=== PATIENT | female | born 1940 | race Hispanic/Latino ===

== ENCOUNTER 2018-01-24 14:04 | Inpatient (IN) | payer MEDICARE, MEDICAID ==
[2018-01-24] MEDS ORDERED: Haloperidol Lactate 5 MG/ML VIAL ONE ×2 (14:23→15:30)
[2018-01-24 14:44] LABS: #Eosinphils 0.2 thou/uL (0.0-0.7); #Monocytes 0.6 thou/uL (0.11-0.59); %Basophils 0.1 % (0.0-1.0); %Lymphocytes 25.8 % (21.0-51.0); %Neutrophils 64.1 % (42.0-75.0); Hemoglobin 11.9 g/dL (12.0-16.0); Mean Corpuscular HGB CONC 32.9 g/dL (32.0-36.0); Mean Corpuscular Hemoglobin 27.7 pg (27.0-31.0); Mean Corpuscular Volume 84.1 fl (81.0-99.0); Mean Platelet Volume 8.3 fL (7.4-10.4); Platelet Count 223 thou/uL (130-400); RBC Distribution Width 12.9 % (11.5-14.5); Red Blood Cell (RBC) Count 4.29 mill/uL (4.20-5.40); White Blood Cell (WBC) Count 7.7 thou/uL (4.8-10.8)
[2018-01-24 14:54] LABS: Base Excess-Venous -0.4 mmol/L (0 (+/- 2.5)); Bicarbonate (HCO3v) 23.5 mmol/L (1.0-85.0); CO2 Tension (PvCO2) 35.2 mmHg (41.0-51.0); Calcium, Ionized 1.08 mmol/L (1.12-1.32); Hemoglobin - Calc 12.3 g/dL (12.0-18.0); Potassium 3.2 mmol/L (3.4-4.7); T. Carbon Dioxide 24.6 mmol/L (1.0-85.0); pH (Venous) 7.433 (7.35-7.45); vO2 Saturation-calc 95.1 % (94-98)
[2018-01-24 15:05] LABS: ALT (SGPT) 15 U/L (8-55); AST (SGOT) 16 U/L (5-34); Albumin 3.2 g/dL (3.4-4.8); Alkaline Phosphatase 83 U/L (40-150); Anion Gap 13 mmol/L (10-20); BUN (Urea Nitrogen) 21 mg/dL (9.8-20.1); Bilirubin, Total 0.3 mg/dL (0.2-1.2); Calc. Creatinine Clearance 0 mL/min (70-130); Calcium 9.2 mg/dL (7.8-10.44); Carbon Dioxide 22 mmol/L (23-31); Chloride 100 mmol/L (98-107); Estimated GFR-MDRD 54; Globulin 3.3 g/dL (2.4-3.5); Glucose 364 mg/dL (83-110); Potassium 3.3 mmol/L (3.5-5.1); Protein, Total 6.5 g/dL (6.0-8.3); Sodium 132 mmol/L (136-145)
[2018-01-24] MEDS ORDERED: diphenhydrAMINE 50 MG/ML VIAL ONE (15:40)
[2018-01-24] MEDS ORDERED: Lorazepam 2 MG/ML VIAL ONE (16:05)
--- NOTE | 2018-01-24 17:16 | CT ---
CT BRAIN WITHOUT CONTRAST 01/24/18 HISTORY: Altered mental status. FINDINGS: Comparison is made with exam of 03/31/17. Changes of cortical atrophy and chronic small vessel ischemic disease are again seen. The ventricular size is stable and the basilar cisterns patent. No evidence of acute infarct, hemorrhage, midline sh ift or abnormal extra-axial fluid collections are noted. The bony calvarium is intact. The visualized paranasal sinuses and mastoid air cells are well aerated. IMPRESSION: No CT evidence of acute intracranial process. POS: [facility]
[2018-01-24 17:53] LABS: Troponin I 0.023 ng/mL (< 0.028)
[2018-01-24] MEDS ORDERED: Ondansetron HCl/PF 4 MG/2 ML Vial IVP PRN ×2 (17:57→18:50)
[2018-01-24] MEDS ORDERED: Acetaminophen 325 MG TAB PO PRN (17:57)
[2018-01-24] MEDS ORDERED: HYDROcodone/Acetaminophen 5/325 mg Tablet PO PRN ×2 (17:57)
[2018-01-24] MEDS ORDERED: Ondansetron ODT 4 MG TAB SL PRN (17:57)
[2018-01-24 18:12] VITALS: BMI 43.6
[2018-01-24] MEDS ORDERED: Senokot 8.6 MG TAB PO PRN (18:50)
[2018-01-24] MEDS ORDERED: Calcium Carbonate 500 MG ChewTAB PO PRN (18:50)
[2018-01-24] MEDS ORDERED: Dextrose 5% in Water 1,000 ML IV PRN (18:50)
[2018-01-24] MEDS ORDERED: Milk Of Magnesia 30 ML UDCUP PO PRN (18:50)
[2018-01-24] MEDS ORDERED: Ondansetron ODT 4 MG TAB PO PRN (18:50)
[2018-01-24] MEDS ORDERED: Dextrose 50% Abboject 50 ML SYRINGE SLOW IVP PRN (18:50)
[2018-01-24] MEDS ORDERED: Nitroglycerin 0.4 MG TAB (25 Tab Bottle) PO PRN (18:50)
[2018-01-24] MEDS ORDERED: Acetaminophen 650 MG Suppository PR PRN (18:50)
[2018-01-24] MEDS ORDERED: Aspirin 300 MG Suppository PR SCH (19:00)
[2018-01-24] MEDS ORDERED: Vancomycin HCl 1 GM in Premix Bag 1 BAG IVPB SCH (19:00)
[2018-01-24] MEDS ORDERED: Labetalol HCl 100 MG/20 ML VIAL SLOW IVP PRN (19:02)
[2018-01-24] MEDS ORDERED: Nitroglycerin 2% Ointment 1 INCH/1 GM Packet TOP PRN (19:17)
[2018-01-24] MEDS: Atorvastatin Calcium 10 MG TAB PO SCH (19:24)
[2018-01-24 19:28] LABS: Anion Gap 11 mmol/L (10-20); BUN (Urea Nitrogen) 16 mg/dL (9.8-20.1); Calc. Creatinine Clearance 103 mL/min (70-130); Calcium 9.3 mg/dL (7.8-10.44); Carbon Dioxide 23 mmol/L (23-31); Chloride 101 mmol/L (98-107); Estimated GFR-MDRD 69; Glucose 356 mg/dL (83-110); Lipase 9 U/L (8-78); Magnesium 1.7 mg/dL (1.6-2.6); Phosphorus 2.8 mg/dL (2.3-4.7); Potassium 3.4 mmol/L (3.5-5.1); Sodium 132 mmol/L (136-145)
[2018-01-24 19:39] LABS: Troponin I 0.039 ng/mL (< 0.028)
[2018-01-24 19:59] LABS: Folate (Folic Acid) 9.1 ng/mL (7.0-31.4)
--- NOTE | 2018-01-24 20:02 | HP ---
DATE OF ADMISSION: 01/24/2018 PRIMARY CARE PHYSICIAN: Milan Vargas M.D. CHIEF COMPLAINT: Altered mentation. HISTORY OF PRESENT ILLNESS: The patient is a 77-year-old female with diabetes mellitus type 2 and medication noncompliance, who presented to [facility] by EMS with altered mentation. At this time, the patient is confused and no information is available. History obtained from the ER and previous records. The patient currently lives alone at home. Her daughter lives in [place]. She has been very noncompliant with a blood sugar. She also has fallen several times. She was evaluated by Dr. Gonsalez last week and was recommended to be placed in a skilled nursing; however, the patient has been persistently declining. The patient was brought to the emergency room by EMS due to altered mentation and a fall. The caregiver called the EMS. The caregiver found the patient on the floor. Her blood sugars were "high" by EMS. There were no significant injuries reported. In the emergency room at [place], her initial vital signs showed temperature 97.7 , respirations 25, pulse rate of 112 with a blood pressure of 203/86 with O2 saturation 96% on room air. Her blood sugar at the emergency room was 695 with creatinine 1.18 and BUN 25. VBGs showed normal pH and bicarbonate. WBC count was 6.9 with a platelet count of 241, hemoglobin of 11.6. She received lorazepam, insulin and IV fluids due to altered mentation and agitation. Her EKG showed sinus tachycardia. PAST MEDICAL HISTORY: 1. Diabetes mellitus type 2 with medication noncompliance. 2. History of recurrent falls. 3. Hypertension. 4. Diabetic neuropathy. 5. Anxiety and depression. 6. Chronic insomnia. 7. Chronic obstructive pulmonary disease. 8. Dyslipidemia. 9. Hypothyroidism. 10. Anemia. 11. Morbid obesity. 12. Restless leg syndrome. 13. Chronic kidney disease, stage 2. PAST SURGICAL HISTORY: 1. Left total knee replacement. 2. Right elbow surgery. 3. Thyroid surgery in . 4. Right hand and wrist surgery in 1994. 5. Lumbar surgery in 2000. ALLERGIES: The patient is allergic to CODEINE. CURRENT HOME MEDICATIONS: Cannot be obtained from the patient due to current cognitive status. FAMILY HISTORY AND SOCIAL HISTORY: Cannot be obtained from the patient due to current cognitive status. CODE STATUS: FULL CODE. Surrogate decision maker is the daughter. REVIEW OF SYSTEMS: Cannot be obtained from the patient due to current cognitive status. PHYSICAL EXAMINATION: VITAL SIGNS: As discussed above. Her last blood pressure was 119/76. GENERAL: A 77-year-old female with altered mentation. She is not following verbal commands. She is spontaneously moving all 4 extremities. HEENT: Head is atraumatic, normocephalic. Sclerae are anicteric. Dry mucous membranes. Pupils are 2-3 mm with slow response to light. NECK: Supple, no JVD appreciated. No carotid bruit. LUNGS: Clear to auscultation bilaterally with diminished air entry at bases. No wheezing, rales or rhonchi. HEART: S1, S2 present. Regular rate and rhythm, tachycardic, no rubs or gallops appreciated. ABDOMEN: Soft. Bowel sounds present. No rebound or guarding. No tenderness over the costovertebral area. EXTREMITIES: 1+ edema in bilateral lower extremities with several superficial abrasions/lacerations. NEUROLOGIC: Cannot be assessed due to above reason. The patient is not following commands. Her tone appears to be normal. PSYCHIATRIC: As discussed above. LYMPH NODES: No palpable lymph nodes in the neck. PERIPHERAL VASCULAR: Radial pulses palpable bilaterally. MUSCULOSKELETAL: No joint swelling or tenderness appreciated. SKIN: As discussed above. LABORATORY AND X-RAY FINDINGS: As discussed above. Sodium was 130 with glucose of 695. Potassium was 3.3. Troponins were normal. EKG by my review showed sinus tachycardia. CT scan of the brain was negative. Chest x-ray by my review was negative for acute findings. IMPRESSION: 1. Toxic metabolic encephalopathy of unclear etiology. Hyperosmolar hyperglycemic state appears to be a possibility. Other possibilities include acute cerebrovascular accident. Urinalysis was negative. Patient probably has B /L LE Cellulitis from superficial lacerations 2. Diabetes mellitus type 2, uncontrolled with significant hyperglycemia. 3. Hypertension with hypertensive urgency on ER arrival. 4. Dyslipidemia. 5. Hypothyroidism. 6. Morbid obesity with a body mass index of 43.6. 7. Degenerative joint disease. 8. Diabetic neuropathy. 9. Medication noncompliance. 10. Recurrent falls. PLAN: The patient will be monitored in the stroke unit. Neurology will be consulted. We will start her on aspirin rectally. She will be n.p.o. We will continue IV fluids. Replace potassium. We will get Accu-Cheks every 4 hourly with moderate sliding scale. We will start her on empiric antibiotics. We will get blood cultures prior to the antibiotics. Plan of care was discussed with the daughter over the phone. She stated understanding. MER
[2018-01-24] MEDS: NS 0.9% w/ 20 MEQ KCL 1,000 ML/1,000 ML BAG IV SCH (20:24)
[2018-01-24] MEDS: Nystatin Powder 15 GM BOT TOP SCH (20:30)
[2018-01-24] MEDS ORDERED: MEROPENEM 1 GM/50 ML 1 GM in Premix Bag 1 BAG IVPB SCH (21:00)
[2018-01-24] MEDS ORDERED: Vancomycin HCl 500 MG in Sodium Chloride 0.9% 100 ML IVPB SCH (21:00)
[2018-01-24] MEDS: MEROPENEM 1 GM/50 ML 1 GM in Premix Bag 1 BAG IVPB SCH (21:05)
[2018-01-24] MEDS: Pantoprazole 40 MG VIAL IVP SCH (21:06)
[2018-01-24] MEDS ORDERED: Lorazepam 2 MG/ML VIAL SLOW IVP PRN (21:20)
[2018-01-24] MEDS: Insulin Regular 300 UNITS/3 ML VIAL SC PRN (21:33)
[2018-01-25] MEDS: NS 0.9% w/ 20 MEQ KCL 1,000 ML/1,000 ML BAG IV SCH ×3 (03:42→19:53)
[2018-01-25 05:06] LABS: #Eosinphils 0.3 thou/uL (0.0-0.7); #Lymphocytes 2.4 thou/uL (1.20-3.40); #Monocytes 0.7 thou/uL (0.11-0.59); #Neutrophils 4.3 thou/uL (1.40-6.50); %Basophils 0.1 % (0.0-1.0); %Eosinophils 4.4 % (0.0-10.0); %Lymphocytes 30.8 % (21.0-51.0); %Neutrophils 55.7 % (42.0-75.0); Hemoglobin 11.7 g/dL (12.0-16.0); Mean Corpuscular HGB CONC 32.4 g/dL (32.0-36.0); Mean Corpuscular Hemoglobin 27.4 pg (27.0-31.0); Mean Corpuscular Volume 84.6 fl (81.0-99.0); Mean Platelet Volume 8.7 fL (7.4-10.4); Platelet Count 249 thou/uL (130-400); Red Blood Cell (RBC) Count 4.27 mill/uL (4.20-5.40); White Blood Cell (WBC) Count 7.7 thou/uL (4.8-10.8)
[2018-01-25 05:33] LABS: Troponin I 0.094 ng/mL (< 0.028)
[2018-01-25 05:37] LABS: ALT (SGPT) 15 U/L (8-55); AST (SGOT) 18 U/L (5-34); Albumin 3.1 g/dL (3.4-4.8); Alkaline Phosphatase 80 U/L (40-150); Anion Gap 9 mmol/L (10-20); BUN (Urea Nitrogen) 13 mg/dL (9.8-20.1); Bilirubin, Total 0.4 mg/dL (0.2-1.2); Calc. Creatinine Clearance 111 mL/min (70-130); Calcium 9.1 mg/dL (7.8-10.44); Carbon Dioxide 27 mmol/L (23-31); Cardiac Risk 4.5 (Less than 4.5); Chloride 105 mmol/L (98-107); Cholesterol 158 mg/dl (< 200 Desired); Estimated GFR-MDRD 75; Glucose 206 mg/dL (83-110); HDL Cholesterol 35 mg/dL (>60 Neg Risk); LDL Cholesterol, Calculated 103 mg/dL; Magnesium 1.9 mg/dL (1.6-2.6); Phosphorus 2.4 mg/dL (2.3-4.7); Potassium 3.6 mmol/L (3.5-5.1); Protein, Total 6.1 g/dL (6.0-8.3); Sodium 137 mmol/L (136-145); Triglycerides 99 mg/dL (Less than 150)
[2018-01-25] MEDS: Enoxaparin Sodium 40 MG/0.4 ML SYRINGE SC SCH (08:19)
[2018-01-25] MEDS: MEROPENEM 1 GM/50 ML 1 GM in Premix Bag 1 BAG IVPB SCH ×2 (08:20→21:40)
[2018-01-25] MEDS: Nystatin Powder 15 GM BOT TOP SCH ×2 (08:23→20:03)
[2018-01-25] MEDS: Vancomycin HCl 500 MG in Sodium Chloride 0.9% 100 ML IVPB SCH ×2 (09:09→20:32)
[2018-01-25] MEDS: Insulin Regular 300 UNITS/3 ML VIAL SC PRN ×3 (12:33→21:19)
--- NOTE | 2018-01-25 15:03 | PDOC.PN ---
- Subjective Encounter Start Date: 01/25/18 Encounter Start Time: 11:30 Patient seen and examined. No new complaints. No overnight events. Mentation improving. No fever/chills. Passed swallow eval. No new focal deficits. - Objective Resuscitation Status: Resuscitation Status FULL:Full Resuscitation MAR Reviewed: Yes Vital Signs & Weight: Vital Signs (12 hours) Temp Pulse Pulse Pulse Resp BP BP 01/25/18 14:26 80 16 01/25/18 12:00 98.1 F 89 16 01/25/18 11:00 80 16 01/25/18 09:38 86 86 167/71 H 162/75 H 01/25/18 08:00 97.7 F 86 16 01/25/18 07:52 97.7 F 86 16 01/25/18 07:46 84 16 01/25/18 04:00 99.1 F 85 20 01/25/18 03:03 85 16 BP Pulse Ox 01/25/18 14:26 01/25/18 12:00 165/73 H 94 L 01/25/18 11:00 01/25/18 09:38 01/25/18 08:00 95 01/25/18 07:52 164/75 H 95 01/25/18 07:46 01/25/18 04:00 154/64 H 95 01/25/18 03:03 96 Weight Admit Weight 238 lb 9.6 oz Weight 238 lb 9.6 oz I&O: 01/24/18 01/25/18 01/26/18 06:59 06:59 06:59 Intake Total 0 Output Total 200 Balance -200 Result Diagrams: 01/26/18 03:30 01/26/18 03:30 Additional Labs: Accuchecks 01/25/18 01/25/18 01/25/18 11:12 05:03 02:42 POC Glucose 273 H 191 H 202 H 01/24/18 01/24/18 21:18 18:24 POC Glucose 368 H 347 H Radiology Reviewed by me: Yes (CXR - no infiltrates) EKG Reviewed by me: Yes (Tele SR) Phys Exam - Physical Examination Constitutional: NAD (Somnolent) Neck: no nodes, no JVD Respiratory: no wheezing, no rales, no rhonchi, clear to auscultation bilateral Cardiovascular: RRR, no rub no rubs/gallops Gastrointestinal: soft, non-tender, no distention, positive bowel sounds Musculoskeletal: no edema B/L LE erythema surrounding the lacerations Neuro/Psych - cannot assess reliably due to current mentation Dx/Plan - Plan delgadillo catheter, continue antibiotics, PT/OT, social sciences instructor, respiratory therapy, DVT proph w/lovenox, DVT proph w/SCDs IMPRESSION: 1. Toxic metabolic encephalopathy of unclear etiology. Probably Hyperosmolar hyperglycemic state with B/L LE Cellulitis. Acute CVA less likely. 2. Diabetes mellitus type 2, uncontrolled with significant hyperglycemia. 3. Hypertension with hypertensive urgency on ER arrival. 4. Dyslipidemia. 5. Hypothyroidism. 6. Morbid obesity with a body mass index of 43.6. 7. Degenerative joint disease. 8. Diabetic neuropathy. 9. Medication noncompliance. 10. Recurrent falls. PLAN: * Cont to monitor * Cont glucose check Q4h with sliding scale * Cont current meds as below * Cont current IV fluids * Cont Neuro checks * Await Neuro eval * AM labs * Cont Atbx * Await cultures * Attempted to call daughter - no answer * Resume selected home meds Review of Systems - Review of Systems Other: Cannot be reliably obtained due to current cognition - Medications/Allergies Allergies/Adverse Reactions: Allergies Allergy/AdvReac Type Severity Reaction Status Date / Time codeine AdvReac vomiting Verified 03/28/17 14:52 COD Allergy Emesis Uncoded 03/29/17 10:33 Medications: Current Medications Acetaminophen (Tylenol) 650 mg PO Q4H PRN PRN Reason: Headache/Fever or Pain Acetaminophen (Tylenol) 650 mg [place] Q4H PRN PRN Reason: Headache/Fever or Pain Albuterol/Ipratropium (Duoneb) 3 ml NEB [id number] [facility] Last Admin: 01/25/18 14:26 Dose: 3 ml Albuterol/Ipratropium (Duoneb) 3 ml NEB [id number] PRN PRN Reason: SOB &/or Wheezing Aspirin (Aspirin) 300 mg AZ Q24H [facility] Last Admin: 01/24/18 19:24 Dose: Not Given Atorvastatin Calcium (Lipitor) 10 mg PO HS [facility] Last Admin: 01/24/18 19:24 Dose: Not Given Calcium Carbonate (Tums) 1,000 mg PO Q4H PRN PRN Reason: Heartburn or Indigestion Dextrose/Water (Dextrose 50%) 25 gm SLOW IVP PRN PRN PRN Reason: Hypoglycemia Enoxaparin Sodium (Lovenox) 40 mg SC 09 [facility] Last Admin: 01/25/18 08:19 Dose: 40 mg Glucagon (Glucagon) 1 mg IM PRN PRN PRN Reason: Hypoglycemia Hydralazine HCl (Apresoline) 10 mg SLOW IVP Q4H PRN PRN Reason: BP > 180 Thiamine HCl 100 mg/ Sodium (Chloride) 51 mls @ 100 mls/hr IVPB 1999 [facility] Last Admin: 01/24/18 20:25 Dose: 51 mls Dextrose/Water (D5w) 1,000 mls @ 0 mls/hr IV .Q0M PRN; As Directed PRN Reason: Hypoglycemia Potassium Chloride/Sodium Chloride (Ns 0.9% W/ 20 Meq Kcl) 1,000 ml in 1,000 mls @ 150 mls/hr IV .Q6H40M [facility] Last Admin: 01/25/18 12:33 Dose: 1,000 mls Vancomycin HCl 500 mg/ Sodium (Chloride) 100 mls @ 100 mls/hr IVPB [facility] Last Admin: 01/25/18 09:09 Dose: 100 mls Meropenem 1 gm/ Device 50 mls @ 100 mls/hr IVPB Q12HR [facility] Last Admin: 01/25/18 08:20 Dose: 50 mls Insulin Human Regular (Humulin R) 0 units SC .MODERATE SLIDING SC PRN PRN Reason: Moderate Correctional Scale Last Admin: 01/25/18 12:33 Dose: 6 unit Insulin Human Regular (Humulin R) 0 units SC .BEDTIME SLIDING SC PRN PRN Reason: Bedtime Correctional Scale Labetalol HCl (Normodyne) 10 mg SLOW IVP Q4H PRN PRN Reason: Systolic BP > 180 Lorazepam (Ativan) 1 mg SLOW IVP Q4H PRN PRN Reason: Agitation Magnesium Hydroxide (Milk Of Magnesium) 30 ml PO DAILYPRN PRN PRN Reason: Constipation Miscellaneous Medication (Pharmacy To Dose) 1 each IVPB ONE PRN PRN Reason: Pharmacy to dose Stop: 02/23/18 18:47 Nitroglycerin (Nitrostat) 0.4 mg PO Q5MIN PRN PRN Reason: Chest Pain Nitroglycerin (Nitro-Bid 2% Ointment) 0.5 inch TOP Q8HR PRN PRN Reason: SBP Greater Than 180 Nystatin (Mycostatin Powder) 0 gm TOP BID [facility] Last Admin: 01/25/18 08:23 Dose: 1 each Ondansetron HCl (Zofran Odt) 4 mg PO Q6H PRN PRN Reason: Nausea/Vomiting Ondansetron HCl (Zofran) 4 mg IVP Q6H PRN PRN Reason: Nausea/Vomiting Pantoprazole Sodium (Protonix) 40 mg IVP 2100 [facility] Last Admin: 01/24/18 21:06 Dose: 40 mg Senna (Senokot) 2 tab PO HSPRN PRN PRN Reason: Constipation Sodium Chloride (Flush - Normal Saline) 10 ml IVF PRN PRN PRN Reason: Saline Flush
[2018-01-25] MEDS ORDERED: Mometasone/Formoterol 120 PUFF INHALER INH PRN (16:46)
[2018-01-25] MEDS: Acetaminophen 325 MG TAB PO PRN (17:11)
[2018-01-25] MEDS ORDERED: Aspirin 81 mg Enteric Coated Tablet PO SCH (17:30)
[2018-01-25] MEDS: Atorvastatin Calcium 10 MG TAB PO SCH (20:01)
[2018-01-25] MEDS: Pantoprazole 40 MG VIAL IVP SCH (20:01)
[2018-01-25] MEDS: Carvedilol 25 MG TAB PO SCH (20:01)
--- NOTE | 2018-01-25 23:17 | CON ---
DATE OF CONSULTATION: 01/25/2018 REFERRING PROVIDER: Dr. Bossman Jacome. REASON FOR CONSULTATION: Altered mental status. HISTORY OF PRESENT ILLNESS: Ms. Suarez is a pleasant 77-year-old female who has been con cerned for evaluation of altered mental status. History is obtained from patient and her medical kaitlin rt. Patient does not recall what brought her into the hospital. Apparently, patient was noted to [place] ve acute changes in mentation and a fall. She has multiple medical problems including high blood pre ssure, diabetes, cholesterol, anxiety, depression, COPD, hypothyroidism, and anemia. She was noncomp liant with her medications. Her caregiver had found her to be confused and called EMS. On arrival h ere, her blood sugar was noted to be extremely high. On arrival to the outside emergency room, her b lood pressure was noted to be 203/86 and blood glucose of 695, this prompted patient to be transferre d to [facility] for further evaluation. According to the nurse, her mentation has bee n improving over the past 24 hours. She currently denies any headache, chest pain, palpitation, naus ea, vomiting, abdominal pain. She does have history of paresthesia in both hands and feet. PAST MEDICAL HISTORY: Significant for hypertension, diabetes, diabetic neuropathy, anxiety, depressi on, chronic insomnia, COPD, dyslipidemia, hypothyroidism, anemia, morbid obesity, restless leg syndro me, and history of noncompliance with medication. PAST SURGICAL HISTORY: Significant for left total knee replacement, right elbow surgery, thyroid tomeka audi, right hand and wrist surgery, lumbar surgery. CURRENT MEDICATIONS: Please review MAR. ALLERGIES: Include CODEINE. FAMILY HISTORY: Noncontributory. SOCIAL HISTORY: She denies smoking, alcohol use, or illicit drug use. REVIEW OF SYSTEMS: As mentioned above in the HPI, was otherwise negative. PHYSICAL EXAMINATION: VITAL SIGNS: Blood pressure of 157/72, pulse of 92, temperature of 97.3, respirations of 16, O2 sats of 98% on room air. GENERAL: Well-developed, well-nourished female in no apparent distress. RESPIRATORY: Clear to auscultation bilaterally. CARDIOVASCULAR: Regular rate and rhythm. NEUROLOGIC: Mental status: Patient is awake, alert, oriented x3. Speech and language: Fluent spee ch. Cranial nerves: Pupils are 3 mm and reactive. Visual maher are intact. Extraocular muscles a re intact. No nystagmus noted. Face is symmetric. Tongue and uvula are midline. Motor exam showed normal tone and bulk with 5/5 strength in the both upper and lower extremities. Sensory: Sensation is intact and symmetric. Deep tendon reflexes 2+ reflexes in both upper and lower extremities. Bab inski: Plantar responses flexion bilaterally. Coordination intact to [id number] and finger tapping bilaterally. LABORATORY DATA: Reviewed, which included CBC, CMP, lipid profile, which is significant for glucose of 369, troponin of 0.094. Total cholesterol 158, LDL of 103, triglycerides of 99, HDL of 35, otherw ise unremarkable. IMAGING STUDIES: CT head without contrast was reviewed, which showed no acute intracranial abnormali ty. IMPRESSION: Altered mental status, likely toxic metabolic encephalopathy from hyperglycemia. Ms. Pinto is a pleasant 77-year-old female who presented with the confusion. She was noted to have blood glucose of 695 and above, likely the cause for confusion is hyperglycemia. I would recom mend continuing current medical management. Continue supportive care.
[2018-01-26] MEDS: Levothyroxine 150 MCG TAB PO SCH (05:34)
[2018-01-26] MEDS: NS 0.9% w/ 20 MEQ KCL 1,000 ML/1,000 ML BAG IV SCH ×3 (05:34→15:59)
[2018-01-26 07:54] LABS: #Eosinphils 0.5 thou/uL (0.0-0.7); #Monocytes 0.6 thou/uL (0.11-0.59); #Neutrophils 3.8 thou/uL (1.40-6.50); %Basophils 0.5 % (0.0-1.0); %Eosinophils 7.2 % (0.0-10.0); %Lymphocytes 29.3 % (21.0-51.0); %Monocytes 8.5 % (0.0-10.0); %Neutrophils 54.5 % (42.0-75.0); Hemoglobin 12.1 g/dL (12.0-16.0); Mean Corpuscular HGB CONC 31.9 g/dL (32.0-36.0); Mean Corpuscular Hemoglobin 28.1 pg (27.0-31.0); Mean Corpuscular Volume 88.3 fl (81.0-99.0); Mean Platelet Volume 9.7 fL (7.4-10.4); Platelet Count 272 thou/uL (130-400); RBC Distribution Width 13.5 % (11.5-14.5); Red Blood Cell (RBC) Count 4.28 mill/uL (4.20-5.40)
[2018-01-26 07:56] LABS: Vancomycin, Trough 5.5 ug/mL
[2018-01-26 07:57] LABS: ALT (SGPT) 17 U/L (8-55); AST (SGOT) 18 U/L (5-34); Albumin 3.1 g/dL (3.4-4.8); Alkaline Phosphatase 85 U/L (40-150); Anion Gap 10 mmol/L (10-20); BUN (Urea Nitrogen) 12 mg/dL (9.8-20.1); Bilirubin, Total 0.4 mg/dL (0.2-1.2); Calc. Creatinine Clearance 100 mL/min (70-130); Calcium 8.7 mg/dL (7.8-10.44); Carbon Dioxide 24 mmol/L (23-31); Chloride 104 mmol/L (98-107); Estimated GFR-MDRD 67; Globulin 3.3 g/dL (2.4-3.5); Glucose 240 mg/dL (83-110); Magnesium 1.7 mg/dL (1.6-2.6); Phosphorus 2.5 mg/dL (2.3-4.7); Potassium 4.3 mmol/L (3.5-5.1); Protein, Total 6.4 g/dL (6.0-8.3); Sodium 134 mmol/L (136-145)
[2018-01-26] MEDS: Carvedilol 25 MG TAB PO SCH ×2 (09:37→21:41)
[2018-01-26] MEDS: Aspirin 81 mg Enteric Coated Tablet PO SCH (09:37)
[2018-01-26] MEDS: Enoxaparin Sodium 40 MG/0.4 ML SYRINGE SC SCH (09:37)
[2018-01-26] MEDS: Nystatin Powder 15 GM BOT TOP SCH ×2 (09:42→21:41)
[2018-01-26] MEDS: MEROPENEM 1 GM/50 ML 1 GM in Premix Bag 1 BAG IVPB SCH (11:31)
[2018-01-26] MEDS: Vancomycin HCl 500 MG in Sodium Chloride 0.9% 100 ML IVPB SCH (11:32)
--- NOTE | 2018-01-26 12:06 | PDOC.PN ---
- Subjective Encounter Start Date: 01/26/18 Encounter Start Time: 12:05 Patient seen and examined. No new complaints. No overnight events. Tolerating PO. Mentation better. BP uncontrolled per RN - Objective Resuscitation Status: Resuscitation Status FULL:Full Resuscitation MAR Reviewed: Yes Vital Signs & Weight: Vital Signs (12 hours) Temp Pulse Resp BP BP Pulse Ox 01/26/18 11:29 81 203/82 H 01/26/18 10:11 89 16 97 01/26/18 07:00 97.8 F 83 16 202/105 H 97 Weight Admit Weight 238 lb 9.6 oz Weight 238 lb 9.6 oz I&O: 01/25/18 01/26/18 01/27/18 06:59 06:59 06:59 Intake Total 0 1960 Output Total 200 1999 Balance -200 -40 Result Diagrams: 01/26/18 03:30 01/26/18 03:30 Additional Labs: Accuchecks 01/26/18 01/26/18 01/25/18 11:17 05:57 20:55 POC Glucose 379 H 223 H 328 H 01/25/18 16:49 POC Glucose 369 H EKG Reviewed by me: Yes (Tele SR) Phys Exam - Physical Examination Constitutional: NAD HEENT: PERRLA, moist MMs Neck: no JVD Respiratory: no wheezing, no rales, no rhonchi, clear to auscultation bilateral Cardiovascular: RRR, no significant murmur, no rub no heaves Gastrointestinal: soft, non-tender, no distention, positive bowel sounds Musculoskeletal: no edema B/L LE erythema surrounding the lacerations Neurological: non-focal, normal sensation, moves all 4 limbs Psychiatric: normal affect, A&O x 3 Dx/Plan - Plan continue antibiotics, PT/OT, social psychologist, speech therapy, DVT proph w/ lovenox, DVT proph w/SCDs IMPRESSION: 1. Toxic metabolic encephalopathy probably Hyperosmolar hyperglycemic state with B/L LE Cellulitis. 2. Diabetes mellitus type 2, uncontrolled 3. Hypertension with hypertensive urgency on ER arrival. BP uncontrolled. 4. Dyslipidemia. 5. Hypothyroidism. 6. Morbid obesity with a body mass index of 43.6. 7. Degenerative joint disease. 8. Diabetic neuropathy. 9. Medication noncompliance. 10. Recurrent falls. PLAN: * Reduce IVF * Change Meropenem to Ceftriaxone * Wound care consult * Change Acucheck to ACHS * Add NPH * AM labs * Neuro input appreciated * DC in 24-48 hr if stable * SNF eval * Cont to monitor * Cont other current meds as below * Cultures negative * Resume Amlodipine/Celexa/Lyrica * Review of Systems - Review of Systems Respiratory: negative: Cough, Dry, Shortness of Breath, Hemoptysis, SOB with Excertion, Pleuritic Pain, Sputum, Wheezing Cardiovascular: negative: chest pain, palpitations, orthopnea, paroxysmal nocturnal dyspnea, edema, light headedness, other Gastrointestinal: negative: Nausea, Vomiting, Abdominal Pain, Diarrhea, Constipation, Melena, Hematochezia, Other - Medications/Allergies Allergies/Adverse Reactions: Allergies Allergy/AdvReac Type Severity Reaction Status Date / Time codeine AdvReac vomiting Verified 03/28/17 14:52 COD Allergy Emesis Uncoded 03/29/17 10:33 Medications: Current Medications Acetaminophen (Tylenol) 650 mg PO Q4H PRN PRN Reason: Headache/Fever or Pain Last Admin: 01/25/18 17:11 Dose: 650 mg Acetaminophen (Tylenol) 650 mg [place] Q4H PRN PRN Reason: Headache/Fever or Pain Albuterol/Ipratropium (Duoneb) 3 ml NEB [id number] [facility] Last Admin: 01/26/18 10:11 Dose: 3 ml Albuterol/Ipratropium (Duoneb) 3 ml NEB [id number] PRN PRN Reason: SOB &/or Wheezing Aspirin (Ecotrin) 81 mg PO DAILY [facility] Last Admin: 01/26/18 09:37 Dose: 81 mg Atorvastatin Calcium (Lipitor) 10 mg PO HS [facility] Last Admin: 01/25/18 20:01 Dose: 10 mg Calcium Carbonate (Tums) 1,000 mg PO Q4H PRN PRN Reason: Heartburn or Indigestion Carvedilol (Coreg) 25 mg PO BID [facility] Last Admin: 01/26/18 09:37 Dose: 25 mg Dextrose/Water (Dextrose 50%) 25 gm SLOW IVP PRN PRN PRN Reason: Hypoglycemia Enoxaparin Sodium (Lovenox) 40 mg SC 0900 [facility] Last Admin: 01/26/18 09:37 Dose: 40 mg Glucagon (Glucagon) 1 mg IM PRN PRN PRN Reason: Hypoglycemia Hydralazine HCl (Apresoline) 10 mg SLOW IVP Q4H PRN PRN Reason: BP > 180 Thiamine HCl 100 mg/ Sodium (Chloride) 51 mls @ 100 mls/hr IVPB 2000 [facility] Last Admin: 01/25/18 19:57 Dose: 51 mls Dextrose/Water (D5w) 1,000 mls @ 0 mls/hr IV .Q0M PRN; As Directed PRN Reason: Hypoglycemia Potassium Chloride/Sodium Chloride (Ns 0.9% W/ 20 Meq Kcl) 1,000 ml in 1,000 mls @ 150 mls/hr IV .Q6H40M [facility] Last Admin: 01/26/18 05:34 Dose: 1,000 mls Meropenem 1 gm/ Device 50 mls @ 100 mls/hr IVPB Q12HR [facility] Last Admin: 01/26/18 11:31 Dose: 50 mls Vancomycin HCl 1 gm/ Device 200 mls @ 200 mls/hr IVPB 1000,2200 [facility] Insulin Human Regular (Humulin R) 0 units SC .MODERATE SLIDING SC PRN PRN Reason: Moderate Correctional Scale Last Admin: 01/25/18 17:11 Dose: 10 unit Insulin Human Regular (Humulin R) 0 units SC .BEDTIME SLIDING SC PRN PRN Reason: Bedtime Correctional Scale Last Admin: 01/25/18 21:19 Dose: 4 unit Labetalol HCl (Normodyne) 10 mg SLOW IVP Q4H PRN PRN Reason: Systolic BP > 180 Last Admin: 01/26/18 11:29 Dose: 2 ml Levothyroxine Sodium (Synthroid) 150 mcg PO 0600 [facility] Last Admin: 01/26/18 05:34 Dose: 150 mcg Lorazepam (Ativan) 1 mg SLOW IVP Q4H PRN PRN Reason: Agitation Magnesium Hydroxide (Milk Of Magnesium) 30 ml PO DAILYPRN PRN PRN Reason: Constipation Miscellaneous Medication (Pharmacy To Dose) 1 each IVPB ONE PRN PRN Reason: Pharmacy to dose Stop: 02/23/18 18:47 Mometasone Furoate/Formoterol Fumar (Dulera 200 Mcg/5 Mcg Inhaler) 2 puff INH BID PRN PRN Reason: Wheezing Nitroglycerin (Nitrostat) 0.4 mg PO Q5MIN PRN PRN Reason: Chest Pain Nitroglycerin (Nitro-Bid 2% Ointment) 0.5 inch TOP Q8HR PRN PRN Reason: SBP Greater Than 180 Nystatin (Mycostatin Powder) 0 gm TOP BID [facility] Last Admin: 01/26/18 09:42 Dose: 1 applic Ondansetron HCl (Zofran Odt) 4 mg PO Q6H PRN PRN Reason: Nausea/Vomiting Ondansetron HCl (Zofran) 4 mg IVP Q6H PRN PRN Reason: Nausea/Vomiting Pantoprazole Sodium (Protonix) 40 mg IVP 2100 [facility] Last Admin: 01/25/18 20:01 Dose: 40 mg Senna (Senokot) 2 tab PO HSPRN PRN PRN Reason: Constipation Sodium Chloride (Flush - Normal Saline) 10 ml IVF PRN PRN PRN Reason: Saline Flush
[2018-01-26] MEDS ORDERED: Amlodipine 10 MG TAB PO SCH (12:15)
[2018-01-26] MEDS: Insulin Regular 300 UNITS/3 ML VIAL SC PRN ×3 (12:59→21:41)
[2018-01-26] MEDS: Vancomycin HCl 1 GM in Premix Bag 1 BAG IVPB SCH ×2 (13:03→23:29)
[2018-01-26] MEDS: hydrALAZINE 20 MG/ML VIAL SLOW IVP PRN (16:08)
[2018-01-26] MEDS ORDERED: cefTRIAXone\\ROCEPHIN 1 GM in Sodium Chloride 0.9% 100 ML IVPB SCH (21:00)
[2018-01-26] MEDS ORDERED: cefTRIAXone\\ROCEPHIN 1 GM, Syringe 0.4 ML in Sterile Water 9.6 ML SLOW IVP SCH (21:00)
[2018-01-26] MEDS: rOPINIRole HCl 0.5 MG TAB PO SCH (21:40)
[2018-01-26] MEDS: NPH, Human Insulin Isophane 300 UNIT/3 ML VIAL SC SCH (21:56)
[2018-01-26] MEDS: Atorvastatin Calcium 10 MG TAB PO SCH (22:03)
[2018-01-27] MEDS: hydrALAZINE 20 MG/ML VIAL SLOW IVP PRN (05:10)
[2018-01-27] MEDS: Levothyroxine 150 MCG TAB PO SCH (05:10)
[2018-01-27] MEDS: Insulin Regular 300 UNITS/3 ML VIAL SC PRN ×3 (06:12→18:40)
[2018-01-27] MEDS: Nystatin Powder 15 GM BOT TOP SCH ×2 (08:49→22:36)
[2018-01-27] MEDS: Pregabalin 50 MG CAP PO SCH (08:50)
[2018-01-27] MEDS: Enoxaparin Sodium 40 MG/0.4 ML SYRINGE SC SCH (08:50)
[2018-01-27] MEDS: rOPINIRole HCl 0.5 MG TAB PO SCH ×2 (08:50→21:35)
[2018-01-27] MEDS: Amlodipine 10 MG TAB PO SCH (08:52)
[2018-01-27] MEDS: Escitalopram Oxalate 10 mg Tablet PO SCH (08:55)
[2018-01-27] MEDS: Aspirin 81 mg Enteric Coated Tablet PO SCH (08:55)
[2018-01-27] MEDS: Carvedilol 25 MG TAB PO SCH ×2 (08:55→21:36)
[2018-01-27] MEDS: NPH, Human Insulin Isophane 300 UNIT/3 ML VIAL SC SCH (09:53)
[2018-01-27] MEDS: Acetaminophen 325 MG TAB PO PRN (09:54)
[2018-01-27] MEDS: Vancomycin HCl 1 GM in Premix Bag 1 BAG IVPB SCH (15:54)
[2018-01-27] MEDS: NS 0.9% w/ 20 MEQ KCL 1,000 ML/1,000 ML BAG IV SCH (17:32)
--- NOTE | 2018-01-27 20:19 | PDOC.PN ---
- Subjective Encounter Start Date: 01/27/18 Encounter Start Time: 11:00 Patient seen and examined. No new complaints. No overnight events - Objective Resuscitation Status: Resuscitation Status FULL:Full Resuscitation MAR Reviewed: Yes Vital Signs & Weight: Vital Signs (12 hours) Temp Pulse Resp BP BP Pulse Ox 01/27/18 20:16 98 01/27/18 16:02 97.6 F 67 16 153/80 H 99 01/27/18 13:33 80 12 01/27/18 11:45 98.5 F 77 16 153/75 H 100 01/27/18 08:52 87 165/79 H 01/27/18 08:45 97.6 F 67 16 98 Weight Admit Weight 238 lb 9.6 oz Weight 238 lb 9.6 oz I&O: 01/26/18 01/27/18 01/28/18 06:59 06:59 06:59 Intake Total 1960 500 600 Output Total 2000 Balance -40 500 600 Result Diagrams: 01/28/18 04:26 01/28/18 04:26 Additional Labs: Accuchecks 01/27/18 01/27/18 01/27/18 16:35 10:53 05:42 POC Glucose 229 H 286 H 206 H 01/26/18 20:50 POC Glucose 287 H EKG Reviewed by me: Yes (Tele SR) Phys Exam - Physical Examination Constitutional: NAD Respiratory: no wheezing, no rhonchi Cardiovascular: RRR, no rub Gastrointestinal: soft, non-tender, positive bowel sounds Musculoskeletal: no edema Neurological: moves all 4 limbs Dx/Plan - Plan DVT proph w/lovenox, DVT proph w/SCDs IMPRESSION: 1. Toxic metabolic encephalopathy probably Hyperosmolar hyperglycemic state with B/L LE Cellulitis. improving 2. Diabetes mellitus type 2, uncontrolled 3. Hypertension with hypertensive urgency on ER arrival. 4. Dyslipidemia. 5. Hypothyroidism. 6. Morbid obesity with a body mass index of 43.6. 7. Degenerative joint disease. 8. Diabetic neuropathy. 9. Medication noncompliance. 10. Recurrent falls. PLAN: * Cont Atbx * Increase Insulin dose * AM labs * Cont wound care * Await Placement - Stable for discharge * Change Acucheck to ACHS * Cont other current meds as below Review of Systems - Review of Systems Respiratory: negative: Cough, Dry, Shortness of Breath, Hemoptysis, SOB with Excertion, Pleuritic Pain, Sputum, Wheezing Cardiovascular: negative: chest pain, palpitations, orthopnea, paroxysmal nocturnal dyspnea, edema, light headedness, other - Medications/Allergies Allergies/Adverse Reactions: Allergies Allergy/AdvReac Type Severity Reaction Status Date / Time codeine AdvReac vomiting Verified 03/28/17 14:52 COD Allergy Emesis Uncoded 03/29/17 10:33 Medications: Current Medications Acetaminophen (Tylenol) 650 mg PO Q4H PRN PRN Reason: Headache/Fever or Pain Last Admin: 01/27/18 09:54 Dose: 650 mg Acetaminophen (Tylenol) 650 mg [place] Q4H PRN PRN Reason: Headache/Fever or Pain Albuterol/Ipratropium (Duoneb) 3 ml NEB [id number] [facility] Last Admin: 01/27/18 20:16 Dose: 3 ml Albuterol/Ipratropium (Duoneb) 3 ml NEB [id number] PRN PRN Reason: SOB &/or Wheezing Amlodipine Besylate (Norvasc) 10 mg PO DAILY [facility] Last Admin: 01/27/18 08:52 Dose: 10 mg Aspirin (Ecotrin) 81 mg PO DAILY [facility] Last Admin: 01/27/18 08:55 Dose: 81 mg Atorvastatin Calcium (Lipitor) 10 mg PO HS [facility] Last Admin: 01/26/18 22:03 Dose: 10 mg Calcium Carbonate (Tums) 1,000 mg PO Q4H PRN PRN Reason: Heartburn or Indigestion Carvedilol (Coreg) 25 mg PO BID [facility] Last Admin: 01/27/18 08:55 Dose: 25 mg Dextrose/Water (Dextrose 50%) 25 gm SLOW IVP PRN PRN PRN Reason: Hypoglycemia Doxycycline Hyclate (Vibramycin) 100 mg PO BID [facility] Enoxaparin Sodium (Lovenox) 40 mg SC 0900 [facility] Last Admin: 01/27/18 08:50 Dose: 40 mg Escitalopram Oxalate (Lexapro) 10 mg PO DAILY [facility] Last Admin: 01/27/18 08:55 Dose: 10 mg Glucagon (Glucagon) 1 mg IM PRN PRN PRN Reason: Hypoglycemia Hydralazine HCl (Apresoline) 10 mg SLOW IVP Q4H PRN PRN Reason: BP > 180 Last Admin: 01/27/18 05:10 Dose: 10 mg Thiamine HCl 100 mg/ Sodium (Chloride) 51 mls @ 100 mls/hr IVPB 2000 [facility] Last Admin: 01/26/18 21:40 Dose: 51 mls Dextrose/Water (D5w) 1,000 mls @ 0 mls/hr IV .Q0M PRN; As Directed PRN Reason: Hypoglycemia Potassium Chloride/Sodium Chloride (Ns 0.9% W/ 20 Meq Kcl) 1,000 ml in 1,000 mls @ 50 mls/hr IV .Q20H [facility] Last Admin: 01/27/18 17:32 Dose: Not Given Insulin Human NPH (Humulin N) 25 unit SC QAM [facility] Insulin Human NPH (Humulin N) 15 unit SC HS [facility] Insulin Human Regular (Humulin R) 0 units SC .MODERATE SLIDING SC PRN PRN Reason: Moderate Correctional Scale Last Admin: 01/27/18 18:40 Dose: 4 unit Insulin Human Regular (Humulin R) 0 units SC .BEDTIME SLIDING SC PRN PRN Reason: Bedtime Correctional Scale Last Admin: 01/26/18 21:41 Dose: 3 unit Labetalol HCl (Normodyne) 10 mg SLOW IVP Q4H PRN PRN Reason: Systolic BP > 180 Last Admin: 01/26/18 11:29 Dose: 2 ml Levothyroxine Sodium (Synthroid) 150 mcg PO 0600 [facility] Last Admin: 01/27/18 05:10 Dose: 150 mcg Magnesium Hydroxide (Milk Of Magnesium) 30 ml PO DAILYPRN PRN PRN Reason: Constipation Mometasone Furoate/Formoterol Fumar (Dulera 200 Mcg/5 Mcg Inhaler) 2 puff INH BID PRN PRN Reason: Wheezing Nitroglycerin (Nitrostat) 0.4 mg PO Q5MIN PRN PRN Reason: Chest Pain Nitroglycerin (Nitro-Bid 2% Ointment) 0.5 inch TOP Q8HR PRN PRN Reason: SBP Greater Than 180 Nystatin (Mycostatin Powder) 0 gm TOP BID [facility] Last Admin: 01/27/18 08:49 Dose: 1 applic Ondansetron HCl (Zofran Odt) 4 mg PO Q6H PRN PRN Reason: Nausea/Vomiting Ondansetron HCl (Zofran) 4 mg IVP Q6H PRN PRN Reason: Nausea/Vomiting Pantoprazole Sodium (Protonix) 40 mg PO DAILY [facility] Last Admin: 01/27/18 08:52 Dose: 40 mg Pregabalin (Lyrica) 100 mg PO DAILY [facility] Last Admin: 01/27/18 08:50 Dose: 100 mg Ropinirole HCl (Requip) 0.5 mg PO BID [facility] Last Admin: 01/27/18 08:50 Dose: 0.5 mg Senna (Senokot) 2 tab PO HSPRN PRN PRN Reason: Constipation Sodium Chloride (Flush - Normal Saline) 10 ml IVF PRN PRN PRN Reason: Saline Flush Last Admin: 01/27/18 08:55 Dose: 10 ml
[2018-01-27] MEDS ORDERED: NPH, Human Insulin Isophane 300 UNIT/3 ML VIAL SC SCH (21:00)
[2018-01-27] MEDS: Doxycycline 100 MG CAP PO SCH (21:36)
[2018-01-27] MEDS: Atorvastatin Calcium 10 MG TAB PO SCH (21:36)
[2018-01-27] MEDS ORDERED: Amitriptyline HCl 100 MG TAB PO PRN (23:03)
[2018-01-28] MEDS: Insulin Regular 300 UNITS/3 ML VIAL SC PRN ×3 (03:43→21:40)
[2018-01-28 04:58] LABS: #Eosinphils 0.4 thou/uL (0.0-0.7); #Lymphocytes 2.7 thou/uL (1.20-3.40); #Monocytes 0.6 thou/uL (0.11-0.59); #Neutrophils 2.9 thou/uL (1.40-6.50); %Basophils 0.6 % (0.0-1.0); %Eosinophils 5.9 % (0.0-10.0); %Lymphocytes 40.9 % (21.0-51.0); %Monocytes 8.6 % (0.0-10.0); %Neutrophils 43.9 % (42.0-75.0); Hemoglobin 11.4 g/dL (12.0-16.0); Mean Corpuscular HGB CONC 32.6 g/dL (32.0-36.0); Mean Corpuscular Hemoglobin 27.6 pg (27.0-31.0); Mean Corpuscular Volume 84.9 fl (81.0-99.0); Mean Platelet Volume 8.2 fL (7.4-10.4); Platelet Count 240 thou/uL (130-400); RBC Distribution Width 13.1 % (11.5-14.5); Red Blood Cell (RBC) Count 4.14 mill/uL (4.20-5.40); White Blood Cell (WBC) Count 6.6 thou/uL (4.8-10.8)
[2018-01-28 05:15] LABS: Anion Gap 11 mmol/L (10-20); BUN (Urea Nitrogen) 13 mg/dL (9.8-20.1); BUN/Creatinine Ratio 15.66; Calc. Creatinine Clearance 100 mL/min (70-130); Carbon Dioxide 23 mmol/L (23-31); Chloride 103 mmol/L (98-107); Estimated GFR-MDRD 67; Glucose 235 mg/dL (83-110); Magnesium 1.7 mg/dL (1.6-2.6); Phosphorus 3.6 mg/dL (2.3-4.7); Potassium 3.8 mmol/L (3.5-5.1); Sodium 133 mmol/L (136-145)
[2018-01-28] MEDS: Levothyroxine 150 MCG TAB PO SCH (05:59)
[2018-01-28] MEDS: Carvedilol 25 MG TAB PO SCH ×2 (08:45→21:50)
[2018-01-28] MEDS: Amlodipine 10 MG TAB PO SCH (08:45)
[2018-01-28] MEDS: Enoxaparin Sodium 40 MG/0.4 ML SYRINGE SC SCH (08:45)
[2018-01-28] MEDS: Doxycycline 100 MG CAP PO SCH ×2 (08:45→21:30)
[2018-01-28] MEDS: Aspirin 81 mg Enteric Coated Tablet PO SCH (08:45)
[2018-01-28] MEDS: Escitalopram Oxalate 10 mg Tablet PO SCH (08:46)
[2018-01-28] MEDS: Nystatin Powder 15 GM BOT TOP SCH ×2 (08:46→21:29)
[2018-01-28] MEDS: Pregabalin 50 MG CAP PO SCH (08:47)
[2018-01-28] MEDS: rOPINIRole HCl 0.5 MG TAB PO SCH ×2 (08:47→21:50)
[2018-01-28] MEDS ORDERED: NPH, Human Insulin Isophane 300 UNIT/3 ML VIAL SC SCH (09:00)
[2018-01-28] MEDS ORDERED: Polyethylene Glycol 3350 17 GM Packet PO SCH (13:15)
[2018-01-28] MEDS: NS 0.9% w/ 20 MEQ KCL 1,000 ML/1,000 ML BAG IV SCH (13:44)
--- NOTE | 2018-01-28 17:09 | PDOC.PN ---
- Subjective Encounter Start Date: 01/28/18 Encounter Start Time: 09:00 Patient seen and examined. No new complaints. No overnight events - Objective Resuscitation Status: Resuscitation Status FULL:Full Resuscitation MAR Reviewed: Yes Vital Signs & Weight: Vital Signs (12 hours) Temp Pulse Pulse Resp BP BP BP 01/28/18 15:46 97.8 F 70 20 145/74 H 01/28/18 15:10 79 12 01/28/18 11:45 69 12 01/28/18 11:01 97.7 F 68 14 136/67 01/28/18 10:35 74 149/76 H 01/28/18 08:45 69 120/56 L 01/28/18 08:00 97.7 F 69 12 01/28/18 07:24 97.7 F 69 16 120/56 L 01/28/18 06:51 72 12 Pulse Ox 01/28/18 15:46 95 01/28/18 15:10 01/28/18 11:45 01/28/18 11:01 97 01/28/18 10:35 01/28/18 08:45 01/28/18 08:00 96 01/28/18 07:24 96 01/28/18 06:51 Weight Admit Weight 238 lb 9.6 oz Weight 238 lb 9.6 oz I&O: 01/27/18 01/28/18 01/29/18 06:59 06:59 06:59 Intake Total 500 1460 Balance 500 1460 Result Diagrams: 01/28/18 04:26 01/28/18 04:26 Additional Labs: Accuchecks 01/28/18 01/28/18 01/28/18 11:01 05:34 03:33 POC Glucose 136 H 213 H 225 H 01/27/18 01/27/18 20:36 16:35 POC Glucose 323 H 229 H EKG Reviewed by me: Yes (Tele SR) Phys Exam - Physical Examination Constitutional: NAD Respiratory: no wheezing, no rhonchi Cardiovascular: RRR, no rub Gastrointestinal: soft, non-tender, positive bowel sounds Musculoskeletal: no edema Neurological: non-focal, moves all 4 limbs Psychiatric: A&O x 3 Dx/Plan - Plan DVT proph w/lovenox, DVT proph w/SCDs IMPRESSION: 1. Toxic metabolic encephalopathy probably Hyperosmolar hyperglycemic state with B/L LE Cellulitis. improving 2. Diabetes mellitus type 2, uncontrolled 3. Hypertension with hypertensive urgency on ER arrival. 4. Dyslipidemia. 5. Hypothyroidism. 6. Morbid obesity with a body mass index of 43.6. 7. Degenerative joint disease. 8. Diabetic neuropathy. 9. Medication noncompliance. 10. Recurrent falls. PLAN: * Change Atbx to PO * DC IV fluids (Pt has no IV access) * Change insulin to Levemir * Cont wound care * Await Placement - Stable for discharge * Change Acucheck to ACHS * Cont other current meds as below * Transfer to medical Review of Systems - Review of Systems Constitutional: negative: fever, chills, sweats, weakness, malaise, other Cardiovascular: negative: chest pain, palpitations, orthopnea, paroxysmal nocturnal dyspnea, edema, light headedness, other Gastrointestinal: Constipation. negative: Nausea, Vomiting, Abdominal Pain, Diarrhea, Melena, Hematochezia, Other - Medications/Allergies Allergies/Adverse Reactions: Allergies Allergy/AdvReac Type Severity Reaction Status Date / Time codeine AdvReac vomiting Verified 03/28/17 14:52 COD Allergy Emesis Uncoded 03/29/17 10:33 Medications: Current Medications Acetaminophen (Tylenol) 650 mg PO Q4H PRN PRN Reason: Headache/Fever or Pain Last Admin: 01/27/18 09:54 Dose: 650 mg Acetaminophen (Tylenol) 650 mg SC Q4H PRN PRN Reason: Headache/Fever or Pain Albuterol/Ipratropium (Duoneb) 3 ml NEB [id number] [facility] Last Admin: 01/28/18 15:10 Dose: 3 ml Albuterol/Ipratropium (Duoneb) 3 ml NEB [id number] PRN PRN Reason: SOB &/or Wheezing Amlodipine Besylate (Norvasc) 10 mg PO DAILY [facility] Last Admin: 01/28/18 08:45 Dose: 10 mg Aspirin (Ecotrin) 81 mg PO DAILY [facility] Last Admin: 01/28/18 08:45 Dose: 81 mg Atorvastatin Calcium (Lipitor) 10 mg PO HS [facility] Last Admin: 01/27/18 21:36 Dose: 10 mg Calcium Carbonate (Tums) 1,000 mg PO Q4H PRN PRN Reason: Heartburn or Indigestion Carvedilol (Coreg) 25 mg PO BID [facility] Last Admin: 01/28/18 08:45 Dose: 25 mg Dextrose/Water (Dextrose 50%) 25 gm SLOW IVP PRN PRN PRN Reason: Hypoglycemia Doxycycline Hyclate (Vibramycin) 100 mg PO BID [facility] Last Admin: 01/28/18 08:45 Dose: 100 mg Enoxaparin Sodium (Lovenox) 40 mg SC 0900 [facility] Last Admin: 01/28/18 08:45 Dose: 40 mg Escitalopram Oxalate (Lexapro) 10 mg PO DAILY [facility] Last Admin: 01/28/18 08:46 Dose: 10 mg Glucagon (Glucagon) 1 mg IM PRN PRN PRN Reason: Hypoglycemia Hydralazine HCl (Apresoline) 10 mg SLOW IVP Q4H PRN PRN Reason: BP > 180 Last Admin: 01/27/18 05:10 Dose: 10 mg Dextrose/Water (D5w) 1,000 mls @ 0 mls/hr IV .Q0M PRN; As Directed PRN Reason: Hypoglycemia Insulin Detemir 35 units/ (Miscellaneous Medication) 0.35 mls @ 0 mls/hr SC [facility] Insulin Human Regular (Humulin R) 0 units SC .MODERATE SLIDING SC PRN PRN Reason: Moderate Correctional Scale Last Admin: 01/28/18 06:00 Dose: 4 unit Insulin Human Regular (Humulin R) 0 units SC .BEDTIME SLIDING SC PRN PRN Reason: Bedtime Correctional Scale Last Admin: 01/28/18 03:43 Dose: 2 unit Labetalol HCl (Normodyne) 10 mg SLOW IVP Q4H PRN PRN Reason: Systolic BP > 180 Last Admin: 01/26/18 11:29 Dose: 2 ml Levothyroxine Sodium (Synthroid) 150 mcg PO 0600 [facility] Last Admin: 01/28/18 05:59 Dose: 150 mcg Magnesium Hydroxide (Milk Of Magnesium) 30 ml PO DAILYPRN PRN PRN Reason: Constipation Mometasone Furoate/Formoterol Fumar (Dulera 200 Mcg/5 Mcg Inhaler) 2 puff INH BID PRN PRN Reason: Wheezing Nitroglycerin (Nitrostat) 0.4 mg PO Q5MIN PRN PRN Reason: Chest Pain Nitroglycerin (Nitro-Bid 2% Ointment) 0.5 inch TOP Q8HR PRN PRN Reason: SBP Greater Than 180 Nystatin (Mycostatin Powder) 0 gm TOP BID [facility] Last Admin: 01/28/18 08:46 Dose: 1 applic Ondansetron HCl (Zofran Odt) 4 mg PO Q6H PRN PRN Reason: Nausea/Vomiting Ondansetron HCl (Zofran) 4 mg IVP Q6H PRN PRN Reason: Nausea/Vomiting Pantoprazole Sodium (Protonix) 40 mg PO DAILY [facility] Last Admin: 01/28/18 08:46 Dose: 40 mg Polyethylene Glycol (Miralax) 17 gm PO DAILY [facility] Pregabalin (Lyrica) 100 mg PO DAILY [facility] Last Admin: 01/28/18 08:47 Dose: 100 mg Ropinirole HCl (Requip) 0.5 mg PO BID [facility] Last Admin: 01/28/18 08:47 Dose: 0.5 mg Senna (Senokot) 2 tab PO HSPRN PRN PRN Reason: Constipation Senna/Docusate Sodium (Senokot S) 1 tab PO BID [facility] Sodium Chloride (Flush - Normal Saline) 10 ml IVF PRN PRN PRN Reason: Saline Flush Last Admin: 01/27/18 08:55 Dose: 10 ml Thiamine HCl (Thiamine) 100 mg PO DAILY [facility]
[2018-01-28] MEDS: Insulin Detemir 100 UNITS/ML 35 UNITS in Pre-Filled Syringe 1 EACH SC SCH (21:30)
[2018-01-28] MEDS: Cephalexin 250 MG CAP PO SCH (21:30)
[2018-01-28] MEDS: Senokot S 8.6-50 MG TAB PO SCH (21:49)
[2018-01-28] MEDS: Atorvastatin Calcium 10 MG TAB PO SCH (21:50)
[2018-01-29] MEDS: Levothyroxine 150 MCG TAB PO SCH (05:57)
[2018-01-29] MEDS: Aspirin 81 mg Enteric Coated Tablet PO SCH (08:21)
[2018-01-29] MEDS: Pregabalin 50 MG CAP PO SCH (08:21)
[2018-01-29] MEDS: Carvedilol 25 MG TAB PO SCH ×2 (08:23→20:42)
[2018-01-29] MEDS: Escitalopram Oxalate 10 mg Tablet PO SCH (08:23)
[2018-01-29] MEDS: Enoxaparin Sodium 40 MG/0.4 ML SYRINGE SC SCH (08:23)
[2018-01-29] MEDS: Amlodipine 10 MG TAB PO SCH (08:23)
[2018-01-29] MEDS: rOPINIRole HCl 0.5 MG TAB PO SCH ×2 (08:23→20:42)
[2018-01-29] MEDS: Acetaminophen 325 MG TAB PO PRN (08:29)
[2018-01-29] MEDS: Polyethylene Glycol 3350 17 GM Packet PO SCH (08:37)
[2018-01-29] MEDS: Senokot S 8.6-50 MG TAB PO SCH ×2 (08:37→20:42)
[2018-01-29] MEDS: Nystatin Powder 15 GM BOT TOP SCH ×2 (08:38→21:01)
[2018-01-29] MEDS: Doxycycline 100 MG CAP PO SCH ×2 (10:44→21:00)
[2018-01-29] MEDS: Cephalexin 250 MG CAP PO SCH ×3 (10:44→20:42)
[2018-01-29] MEDS: Atorvastatin Calcium 10 MG TAB PO SCH (20:43)
[2018-01-29] MEDS: Insulin Detemir 100 UNITS/ML 35 UNITS in Pre-Filled Syringe 1 EACH SC SCH (20:44)
--- NOTE | 2018-01-29 22:15 | PDOC.PN ---
- Subjective Encounter Start Date: 01/29/18 Encounter Start Time: 11:20 Patient seen and examined. No new complaints. No overnight events - Objective Resuscitation Status: Resuscitation Status FULL:Full Resuscitation MAR Reviewed: Yes Vital Signs & Weight: Vital Signs (12 hours) Temp Pulse Resp BP Pulse Ox 01/29/18 19:48 12 01/29/18 15:57 97.6 F 76 20 137/64 95 01/29/18 14:02 67 16 01/29/18 12:00 67 125/69 01/29/18 10:31 71 16 Weight Admit Weight 238 lb 9.6 oz Weight 238 lb 9.6 oz I&O: 01/28/18 01/29/18 01/30/18 06:59 06:59 06:59 Intake Total 3345 739 4915 Balance 3527 213 9525 Result Diagrams: 01/28/18 04:26 01/28/18 04:26 Additional Labs: Accuchecks 01/29/18 01/29/18 01/29/18 16:00 11:03 05:08 POC Glucose 202 H 133 H 173 H Phys Exam - Physical Examination Constitutional: NAD Respiratory: no wheezing, no rhonchi Cardiovascular: RRR, no rub Gastrointestinal: soft, non-tender, positive bowel sounds Musculoskeletal: no edema Neurological: moves all 4 limbs Dx/Plan - Plan DVT proph w/lovenox, DVT proph w/SCDs IMPRESSION: 1. Toxic metabolic encephalopathy probably Hyperosmolar hyperglycemic state with B/L LE Cellulitis. 2. Diabetes mellitus type 2, 3. Hypertension with hypertensive urgency on ER arrival. 4. Dyslipidemia. 5. Hypothyroidism. 6. Morbid obesity with a body mass index of 43.6. 7. Degenerative joint disease. 8. Diabetic neuropathy. 9. Medication noncompliance. 10. Recurrent falls. PLAN: * Cont Levemir/Atbx * Cont wound care * Await Placement - Stable for discharge * Cont other current meds as below \ Review of Systems - Review of Systems Respiratory: negative: Cough, Dry, Shortness of Breath, Hemoptysis, SOB with Excertion, Pleuritic Pain, Sputum, Wheezing Cardiovascular: negative: chest pain, palpitations, orthopnea, paroxysmal nocturnal dyspnea, edema, light headedness, other - Medications/Allergies Allergies/Adverse Reactions: Allergies Allergy/AdvReac Type Severity Reaction Status Date / Time codeine AdvReac vomiting Verified 03/28/17 14:52 COD Allergy Emesis Uncoded 03/29/17 10:33 Medications: Current Medications Acetaminophen (Tylenol) 650 mg PO Q4H PRN PRN Reason: Headache/Fever or Pain Last Admin: 01/29/18 08:29 Dose: 650 mg Acetaminophen (Tylenol) 650 mg [place] Q4H PRN PRN Reason: Headache/Fever or Pain Albuterol/Ipratropium (Duoneb) 3 ml NEB [id number] [facility] Last Admin: 01/29/18 19:48 Dose: 3 ml Albuterol/Ipratropium (Duoneb) 3 ml NEB [id number] PRN PRN Reason: SOB &/or Wheezing Amlodipine Besylate (Norvasc) 10 mg PO DAILY [facility] Last Admin: 01/29/18 08:23 Dose: 10 mg Aspirin (Ecotrin) 81 mg PO DAILY [facility] Last Admin: 01/29/18 08:21 Dose: 81 mg Atorvastatin Calcium (Lipitor) 10 mg PO HS [facility] Last Admin: 01/29/18 20:43 Dose: 10 mg Calcium Carbonate (Tums) 1,000 mg PO Q4H PRN PRN Reason: Heartburn or Indigestion Carvedilol (Coreg) 25 mg PO BID [facility] Last Admin: 01/29/18 20:42 Dose: 25 mg Cephalexin (Keflex) 250 mg PO TID [facility] Last Admin: 01/29/18 20:42 Dose: 250 mg Dextrose/Water (Dextrose 50%) 25 gm SLOW IVP PRN PRN PRN Reason: Hypoglycemia Doxycycline Hyclate (Vibramycin) 100 mg PO BID [facility] Last Admin: 01/29/18 21:00 Dose: 100 mg Enoxaparin Sodium (Lovenox) 40 mg SC 0900 [facility] Last Admin: 01/29/18 08:23 Dose: 40 mg Escitalopram Oxalate (Lexapro) 10 mg PO DAILY [facility] Last Admin: 01/29/18 08:23 Dose: 10 mg Glucagon (Glucagon) 1 mg IM PRN PRN PRN Reason: Hypoglycemia Hydralazine HCl (Apresoline) 10 mg SLOW IVP Q4H PRN PRN Reason: BP > 180 Last Admin: 01/27/18 05:10 Dose: 10 mg Dextrose/Water (D5w) 1,000 mls @ 0 mls/hr IV .Q0M PRN; As Directed PRN Reason: Hypoglycemia Insulin Detemir 35 units/ (Miscellaneous Medication) 0.35 mls @ 0 mls/hr SC [facility] Last Admin: 01/29/18 20:44 Dose: 0.35 mls Insulin Human Regular (Humulin R) 0 units SC .BEDTIME SLIDING SC PRN PRN Reason: Bedtime Correctional Scale Last Admin: 01/28/18 03:43 Dose: 2 unit Insulin Human Regular (Humulin R) 0 units SC .MILD SLIDING SCALE PRN PRN Reason: Mild Correctional Scale Last Admin: 01/28/18 21:40 Dose: 4 unit Labetalol HCl (Normodyne) 10 mg SLOW IVP Q4H PRN PRN Reason: Systolic BP > 180 Last Admin: 01/26/18 11:29 Dose: 2 ml Levothyroxine Sodium (Synthroid) 150 mcg PO 0600 [facility] Last Admin: 01/29/18 05:57 Dose: 150 mcg Magnesium Hydroxide (Milk Of Magnesium) 30 ml PO DAILYPRN PRN PRN Reason: Constipation Mometasone Furoate/Formoterol Fumar (Dulera 200 Mcg/5 Mcg Inhaler) 2 puff INH BID PRN PRN Reason: Wheezing Nitroglycerin (Nitrostat) 0.4 mg PO Q5MIN PRN PRN Reason: Chest Pain Nitroglycerin (Nitro-Bid 2% Ointment) 0.5 inch TOP Q8HR PRN PRN Reason: SBP Greater Than 180 Nystatin (Mycostatin Powder) 0 gm TOP BID [facility] Last Admin: 01/29/18 21:01 Dose: 1 applic Ondansetron HCl (Zofran Odt) 4 mg PO Q6H PRN PRN Reason: Nausea/Vomiting Ondansetron HCl (Zofran) 4 mg IVP Q6H PRN PRN Reason: Nausea/Vomiting Pantoprazole Sodium (Protonix) 40 mg PO DAILY [facility] Last Admin: 01/29/18 08:23 Dose: 40 mg Polyethylene Glycol (Miralax) 17 gm PO DAILY [facility] Last Admin: 01/29/18 08:37 Dose: Not Given Pregabalin (Lyrica) 100 mg PO DAILY [facility] Last Admin: 01/29/18 08:21 Dose: 100 mg Ropinirole HCl (Requip) 0.5 mg PO BID [facility] Last Admin: 01/29/18 20:42 Dose: 0.5 mg Senna (Senokot) 2 tab PO HSPRN PRN PRN Reason: Constipation Senna/Docusate Sodium (Senokot S) 1 tab PO BID [facility] Last Admin: 01/29/18 20:42 Dose: 1 tab Sodium Chloride (Flush - Normal Saline) 10 ml IVF PRN PRN PRN Reason: Saline Flush Last Admin: 01/27/18 08:55 Dose: 10 ml Thiamine HCl (Thiamine) 100 mg PO DAILY [facility] Last Admin: 01/29/18 08:23 Dose: 100 mg
[2018-01-30 05:21] LABS: #Eosinphils 0.3 thou/uL (0.0-0.7); #Lymphocytes 2.3 thou/uL (1.20-3.40); #Monocytes 0.5 thou/uL (0.11-0.59); #Neutrophils 2.8 thou/uL (1.40-6.50); %Basophils 0.5 % (0.0-1.0); %Eosinophils 5.2 % (0.0-10.0); %Lymphocytes 38.7 % (21.0-51.0); %Monocytes 7.7 % (0.0-10.0); %Neutrophils 47.9 % (42.0-75.0); Hemoglobin 11.9 g/dL (12.0-16.0); Mean Corpuscular HGB CONC 31.9 g/dL (32.0-36.0); Mean Corpuscular Hemoglobin 27.4 pg (27.0-31.0); Mean Platelet Volume 8.4 fL (7.4-10.4); Platelet Count 257 thou/uL (130-400); RBC Distribution Width 13.1 % (11.5-14.5); Red Blood Cell (RBC) Count 4.33 mill/uL (4.20-5.40); White Blood Cell (WBC) Count 5.9 thou/uL (4.8-10.8)
[2018-01-30 05:42] LABS: Anion Gap 13 mmol/L (10-20); BUN (Urea Nitrogen) 12 mg/dL (9.8-20.1); Calc. Creatinine Clearance 92 mL/min (70-130); Calcium 9.2 mg/dL (7.8-10.44); Carbon Dioxide 23 mmol/L (23-31); Chloride 103 mmol/L (98-107); Estimated GFR-MDRD 61; Glucose 259 mg/dL (83-110); Potassium 4.1 mmol/L (3.5-5.1); Sodium 135 mmol/L (136-145)
[2018-01-30] MEDS: Levothyroxine 150 MCG TAB PO SCH (06:24)
[2018-01-30] MEDS: Polyethylene Glycol 3350 17 GM Packet PO SCH (07:55)
[2018-01-30] MEDS: Cephalexin 250 MG CAP PO SCH ×3 (07:56→20:34)
[2018-01-30] MEDS: Doxycycline 100 MG CAP PO SCH ×2 (07:56→20:34)
[2018-01-30] MEDS: Enoxaparin Sodium 40 MG/0.4 ML SYRINGE SC SCH (07:56)
[2018-01-30] MEDS: Amlodipine 10 MG TAB PO SCH (07:56)
[2018-01-30] MEDS: rOPINIRole HCl 0.5 MG TAB PO SCH ×2 (07:57→20:34)
[2018-01-30] MEDS: Aspirin 81 mg Enteric Coated Tablet PO SCH (07:57)
[2018-01-30] MEDS: Carvedilol 25 MG TAB PO SCH ×2 (07:57→20:34)
[2018-01-30] MEDS: Escitalopram Oxalate 10 mg Tablet PO SCH (07:57)
[2018-01-30] MEDS: Senokot S 8.6-50 MG TAB PO SCH ×2 (07:57→20:34)
[2018-01-30] MEDS: Pregabalin 50 MG CAP PO SCH (07:58)
[2018-01-30] MEDS: Nystatin Powder 15 GM BOT TOP SCH ×2 (08:00→20:29)
[2018-01-30] MEDS: Acetaminophen 325 MG TAB PO PRN (11:39)
[2018-01-30] MEDS: Insulin Regular 300 UNITS/3 ML VIAL SC PRN ×2 (17:22→20:35)
[2018-01-30] MEDS: Atorvastatin Calcium 10 MG TAB PO SCH (20:34)
[2018-01-30] MEDS: Insulin Detemir 100 UNITS/ML 35 UNITS in Pre-Filled Syringe 1 EACH SC SCH (20:35)
--- NOTE | 2018-01-30 20:56 | PDOC.PN ---
- Subjective Encounter Start Date: 01/30/18 Encounter Start Time: 15:00 Patient seen and examined. No new complaints. No overnight events - Objective Resuscitation Status: Resuscitation Status FULL:Full Resuscitation MAR Reviewed: Yes Vital Signs & Weight: Vital Signs (12 hours) Pulse Resp Pulse Ox 01/30/18 20:14 73 18 98 01/30/18 13:43 74 14 96 01/30/18 09:27 71 16 96 Weight Admit Weight 238 lb 9.6 oz Weight 238 lb 9.6 oz I&O: 01/29/18 01/30/18 01/31/18 06:59 06:59 06:59 Intake Total 490 1880 Balance 490 1880 Result Diagrams: 01/30/18 04:17 01/30/18 04:17 Additional Labs: Accuchecks 01/30/18 01/30/18 01/30/18 17:12 11:03 06:25 POC Glucose 369 H 192 H 154 H 01/29/18 20:07 POC Glucose 255 H Phys Exam - Physical Examination Constitutional: NAD Respiratory: no wheezing, no rhonchi Cardiovascular: RRR, no rub Gastrointestinal: soft, non-tender, positive bowel sounds Dx/Plan - Plan continue antibiotics, PT/OT, DVT proph w/lovenox, DVT proph w/SCDs IMPRESSION: 1. Toxic metabolic encephalopathy probably Hyperosmolar hyperglycemic state with B/L LE Cellulitis. 2. Diabetes mellitus type 2, 3. Hypertension with hypertensive urgency on ER arrival. 4. Dyslipidemia. 5. Hypothyroidism. 6. Morbid obesity with a body mass index of 43.6. 7. Degenerative joint disease. 8. Diabetic neuropathy. 9. Medication noncompliance. 10. Recurrent falls. PLAN: * Add 10 units Levemir QAM * Cont Levemir 35 HS * Cont wound care * Cont other current meds as below * Await Placement - Stable for discharge Review of Systems - Review of Systems Respiratory: negative: Cough, Dry, Shortness of Breath, Hemoptysis, SOB with Excertion, Pleuritic Pain, Sputum, Wheezing Cardiovascular: negative: chest pain, palpitations, orthopnea, paroxysmal nocturnal dyspnea, edema, light headedness, other - Medications/Allergies Allergies/Adverse Reactions: Allergies Allergy/AdvReac Type Severity Reaction Status Date / Time codeine AdvReac vomiting Verified 03/28/17 14:52 COD Allergy Emesis Uncoded 03/29/17 10:33 Medications: Current Medications Acetaminophen (Tylenol) 650 mg PO Q4H PRN PRN Reason: Headache/Fever or Pain Last Admin: 01/30/18 11:39 Dose: 650 mg Acetaminophen (Tylenol) 650 mg [place] Q4H PRN PRN Reason: Headache/Fever or Pain Albuterol/Ipratropium (Duoneb) 3 ml NEB [id number] [facility] Last Admin: 01/30/18 20:14 Dose: 3 ml Albuterol/Ipratropium (Duoneb) 3 ml NEB [id number] PRN PRN Reason: SOB &/or Wheezing Amlodipine Besylate (Norvasc) 10 mg PO DAILY [facility] Last Admin: 01/30/18 07:56 Dose: 10 mg Aspirin (Ecotrin) 81 mg PO DAILY [facility] Last Admin: 01/30/18 07:57 Dose: 81 mg Atorvastatin Calcium (Lipitor) 10 mg PO HS [facility] Last Admin: 01/30/18 20:34 Dose: 10 mg Calcium Carbonate (Tums) 1,000 mg PO Q4H PRN PRN Reason: Heartburn or Indigestion Carvedilol (Coreg) 25 mg PO BID [facility] Last Admin: 01/30/18 20:34 Dose: 25 mg Cephalexin (Keflex) 250 mg PO TID [facility] Last Admin: 01/30/18 20:34 Dose: 250 mg Dextrose/Water (Dextrose 50%) 25 gm SLOW IVP PRN PRN PRN Reason: Hypoglycemia Doxycycline Hyclate (Vibramycin) 100 mg PO BID [facility] Last Admin: 01/30/18 20:34 Dose: 100 mg Enoxaparin Sodium (Lovenox) 40 mg SC 0900 [facility] Last Admin: 01/30/18 07:56 Dose: 40 mg Escitalopram Oxalate (Lexapro) 10 mg PO DAILY [facility] Last Admin: 01/30/18 07:57 Dose: 10 mg Glucagon (Glucagon) 1 mg IM PRN PRN PRN Reason: Hypoglycemia Hydralazine HCl (Apresoline) 10 mg SLOW IVP Q4H PRN PRN Reason: BP > 180 Last Admin: 01/27/18 05:10 Dose: 10 mg Dextrose/Water (D5w) 1,000 mls @ 0 mls/hr IV .Q0M PRN; As Directed PRN Reason: Hypoglycemia Insulin Detemir 35 units/ (Miscellaneous Medication) 0.35 mls @ 0 mls/hr SC HS [facility] Last Admin: 01/30/18 20:35 Dose: 0.35 mls Insulin Detemir 10 units/ (Miscellaneous Medication) 0.1 mls @ 0 mls/hr SC QAM [facility] Insulin Human Regular (Humulin R) 0 units SC .BEDTIME SLIDING SC PRN PRN Reason: Bedtime Correctional Scale Last Admin: 01/30/18 20:35 Dose: 3 unit Insulin Human Regular (Humulin R) 0 units SC .MILD SLIDING SCALE PRN PRN Reason: Mild Correctional Scale Last Admin: 01/30/18 17:22 Dose: 6 unit Labetalol HCl (Normodyne) 10 mg SLOW IVP Q4H PRN PRN Reason: Systolic BP > 180 Last Admin: 01/26/18 11:29 Dose: 2 ml Levothyroxine Sodium (Synthroid) 150 mcg PO 0600 [facility] Last Admin: 01/30/18 06:24 Dose: 150 mcg Magnesium Hydroxide (Milk Of Magnesium) 30 ml PO DAILYPRN PRN PRN Reason: Constipation Mometasone Furoate/Formoterol Fumar (Dulera 200 Mcg/5 Mcg Inhaler) 2 puff INH BID PRN PRN Reason: Wheezing Nitroglycerin (Nitrostat) 0.4 mg PO Q5MIN PRN PRN Reason: Chest Pain Nitroglycerin (Nitro-Bid 2% Ointment) 0.5 inch TOP Q8HR PRN PRN Reason: SBP Greater Than 180 Nystatin (Mycostatin Powder) 0 gm TOP BID [facility] Last Admin: 01/30/18 20:29 Dose: 1 applic Ondansetron HCl (Zofran Odt) 4 mg PO Q6H PRN PRN Reason: Nausea/Vomiting Ondansetron HCl (Zofran) 4 mg IVP Q6H PRN PRN Reason: Nausea/Vomiting Pantoprazole Sodium (Protonix) 40 mg PO DAILY [facility] Last Admin: 01/30/18 07:57 Dose: 40 mg Polyethylene Glycol (Miralax) 17 gm PO DAILY [facility] Last Admin: 01/30/18 07:55 Dose: Not Given Pregabalin (Lyrica) 100 mg PO DAILY [facility] Last Admin: 01/30/18 07:58 Dose: 100 mg Ropinirole HCl (Requip) 0.5 mg PO BID [facility] Last Admin: 01/30/18 20:34 Dose: 0.5 mg Senna (Senokot) 2 tab PO HSPRN PRN PRN Reason: Constipation Senna/Docusate Sodium (Senokot S) 1 tab PO BID [facility] Last Admin: 01/30/18 20:34 Dose: 1 tab Sodium Chloride (Flush - Normal Saline) 10 ml IVF PRN PRN PRN Reason: Saline Flush Last Admin: 01/27/18 08:55 Dose: 10 ml Thiamine HCl (Thiamine) 100 mg PO DAILY [facility] Last Admin: 01/30/18 07:57 Dose: 100 mg Tramadol HCl (Ultram) 50 mg PO Q6H PRN PRN Reason: Pain
[2018-01-30] MEDS: traMADol HCl 50 MG TAB PO PRN (21:08)
[2018-01-31] MEDS: Levothyroxine 150 MCG TAB PO SCH (06:03)
[2018-01-31] MEDS: Insulin Regular 300 UNITS/3 ML VIAL SC PRN (06:05)
[2018-01-31] MEDS: rOPINIRole HCl 0.5 MG TAB PO SCH (07:52)
[2018-01-31] MEDS: Cephalexin 250 MG CAP PO SCH (07:52)
[2018-01-31] MEDS: Aspirin 81 mg Enteric Coated Tablet PO SCH (07:52)
[2018-01-31] MEDS: Escitalopram Oxalate 10 mg Tablet PO SCH (07:52)
[2018-01-31] MEDS: Carvedilol 25 MG TAB PO SCH (07:52)
[2018-01-31] MEDS: Doxycycline 100 MG CAP PO SCH (07:52)
[2018-01-31] MEDS: Amlodipine 10 MG TAB PO SCH (07:52)
[2018-01-31] MEDS: Senokot S 8.6-50 MG TAB PO SCH (07:52)
[2018-01-31] MEDS: Enoxaparin Sodium 40 MG/0.4 ML SYRINGE SC SCH (07:53)
[2018-01-31] MEDS: Pregabalin 50 MG CAP PO SCH (07:53)
[2018-01-31] MEDS: Polyethylene Glycol 3350 17 GM Packet PO SCH (07:55)
[2018-01-31] MEDS: Nystatin Powder 15 GM BOT TOP SCH (07:55)
[2018-01-31] MEDS ORDERED: Insulin Detemir 100 UNITS/ML 10 UNITS in Pre-Filled Syringe 1 EACH SC SCH (09:00)
[2018-01-31] MEDS: traMADol HCl 50 MG TAB PO PRN (10:21)
[2018-01-31 14:18] VITALS: BP 129/70; TEMP 97.1
--- NOTE | 2018-01-31 15:24 | DIS ---
DATE OF DISCHARGE: 01/31/2018 DISCHARGE DISPOSITION: [facility]. ALLERGIES: The patient is allergic to CODEINE. The patient was seen and examined on the day of discharge. Denies any new complaints. No chest pain , shortness of breath, palpitations. DISCHARGE MEDICATIONS: Tylenol as needed, albuterol inhaler as needed, amitriptyline 25 mg at bedtim e, amlodipine 10 mg daily, aspirin 81 mg daily, Lipitor 10 mg daily, Symbicort 160/4.5 two puffs b.i. d., carvedilol 25 mg b.i.d., Keflex 250 mg three times daily for 1 week, doxycycline 100 mg b.i.d. fo r 1 week, Lexapro 10 mg daily, Lasix 40 mg daily, Levemir 25 units b.i.d., DuoNeb as needed, levothyr oxine 150 mcg daily, nystatin powder twice a day, Protonix 40 mg daily, MiraLax 17 grams daily, potas sium chloride 10 mEq daily, Lyrica 100 mg twice a day, Requip 0.5 mg b.i.d. INPATIENT CONSULTANTS: None. BRIEF HOSPITAL COURSE: The patient is a 77-year-old female with diabetes mellitus, type 2, and medic ation noncompliance, presented to the emergency room with altered mentation. Please refer to the his tory and physical dated 01/24/2018 for further details. The patient was admitted to the hospital with a diagnosis of toxic metabolic encephalopathy secondary to hyperglycemia. Blood sugars in the emergency room was 695. She was started on IV fluids with girard bcutaneous insulin every 4 hourly. She required a sitter for the first 24 hours due to altered menta tion and abnormal behavior. Later on, her mentation improved. Due to repeated falls and medication noncompliance, the patient will probably require long-term placement. She will be discharged to [facility] for residential care. Plan of care was discussed with the patient in detail. She stated understanding. FINAL DIAGNOSES: 1. Toxic metabolic encephalopathy with suspected hyperosmolar, hyperglycemic state, resolved. 2. Bilateral lower extremities cellulitis. Patient will continue Keflex and doxycycline with wound care. 3. Diabetes mellitus, type 2. 4. Hypertension with hypertensive urgency on admission. 5. Dyslipidemia. 6. Hypothyroidism. 7. Morbid obesity with a BMI of 43.6. 8. Degenerative joint disease. 9. Diabetic neuropathy. 10. Recurrent falls. 11. Medication noncompliance. 12. Elevated troponins, probably secondary to demand ischemia. 13. Dehydration on admission. Plan of care was discussed with the patient in detail. She stated understanding. Total time coordinating the discharge of this patient was 38 minutes.
== END 2018-01-31 14:53 | DRG 637 ==
LOC: ERS 14:04 → 2SE 17:00 → T4-A 01-28 19:09
PROVIDERS: ADMIT Internal Medicine; ATTEND Internal Medicine
DX: E11.00 Type 2 diabetes mellitus with hyperosmolarity without nonketotic hyperglycemic-hyperosmolar coma (NKHHC) (principal); G92 Toxic encephalopathy; L03.115 Cellulitis of right lower limb; L03.116 Cellulitis of left lower limb; I24.8 Other forms of acute ischemic heart disease; Z68.41 Body mass index [BMI] 40.0-44.9, adult; E11.22 Type 2 diabetes mellitus with diabetic chronic kidney disease; E66.01 Morbid (severe) obesity due to excess calories; E11.42 Type 2 diabetes mellitus with diabetic polyneuropathy; I70.1 Atherosclerosis of renal artery; I16.0 Hypertensive urgency; E78.5 Hyperlipidemia, unspecified; E03.9 Hypothyroidism, unspecified; Z91.14 Patient's other noncompliance with medication regimen; R29.6 Repeated falls; F41.9 Anxiety disorder, unspecified; F32.9 Major depressive disorder, single episode, unspecified; F51.04 Psychophysiologic insomnia; I12.9 Hypertensive chronic kidney disease with stage 1 through stage 4 chronic kidney disease, or unspecified chronic kidney disease; N18.2 Chronic kidney disease, stage 2 (mild); E86.0 Dehydration; Z88.5 Allergy status to narcotic agent; Z79.82 Long term (current) use of aspirin; Z79.4 Long term (current) use of insulin; Z79.899 Other long term (current) drug therapy; Z96.652 Presence of left artificial knee joint
CPT/HCPCS: 36415; 36416; 70450; 80048; 80053; 80061; 80069; 80202; 82140; 82330; 82533; 82607; 82746; 82803; 83690; 83735; 83930; 84100; 84443; 84484; 85025; 87040; 94640; 94760; 96374; 96375; 96376; A4216; C9113; G8978-GP-CN; G8979-GP-CK; G8987-GO-CN; G8988-GO-CK; G8996-GN-CI; G8996-GN-CJ; G8997-GN-CI; J0360; J0696; J1200; J1630; J1650; J1815; J2060; J2185; J3370; J3411; J7050; J7620

== ENCOUNTER 2018-12-28 17:11 | Emergency (ER) | payer MEDICARE, MEDICAID ==
[2018-12-28 18:06] LABS: Bilirubin Negative (Negative); Blood, Urine Negative (Negative); Clarity CLEAR (Clear); Glucose, Urine (Dipstick) Negative (Negative); Leukocyte Negative (Negative); Nitrite Negative (Negative); Protein, Urine (Dipstick) 30 mg/dL (Neg-Trace); Specific Gravity, Urine 1.007 (1.002-1.036); Urobilinogen 0.2 mg/dL (0.2-1.0)
[2018-12-28 18:08] LABS: Bacteria/HPF None Seen HPF (None Seen); Hyaline Casts/LPF 0-3 HYALINE CAST LPF (0-3 Hyaline); RBC/HPF None Seen HPF (0-3); Squamous Epithelial 0-3 HPF (0-3); WBC/HPF 0-3 HPF (0-3)
--- NOTE | 2018-12-28 18:12 | RAD ---
PORTABLE AP CHEST X-RAY 12/28/18 HISTORY: Altered mental status. COMPARISON: 01/24/18. FINDINGS: The heart is enlarged. The pulmonary vasculature is at the upper limits of normal. There is no consol idation or pleural fluid seen and the lungs are otherwise clear. Vascular calcifications seen in the thoracic aorta. There is partial visualization of right glenohumeral prosthesis. Degenerative changes are again noted in the spine. IMPRESSION: 1. No acute cardiopulmonary process. 2. Cardiomegaly. POS: ALYSS[facility]
--- NOTE | 2018-12-28 18:44 | CT ---
NONCONTRAST CT HEAD: 12/28/18 HISTORY: Altered mental status. Seizure-like activity. COMPARISON: 12/17/18. FINDINGS: Again noted are chronic small vessel ischemic changes and cerebral volume loss. There is a stable low density focus in the inferior aspect right basal ganglia which may represent either dilated perivasc ular space versus remote lacunar infarction. This was also seen on prior CT exam of 2018. There is no evidence of an acute cortical infarction, hemorrhage, mass effect, or midline shift. The ventricular system is normal in size, shape and position for the degree of sulcal atrophy. There is a small osseous excrescence involving the inner table left anterior frontal bone which may represent a small calcified meningioma measuring 1 cm. Again, this is a stable when compared to the prior stud ies and is also unchanged compared to the study in 2016. No other interval change. IMPRESSION: 1. No acute intracranial abnormalities demonstrated. 2. Stable chronic changes. POS: LAVONNE
[2018-12-28 18:45] LABS: #Eosinphils 0.4 thou/uL (0.0-0.7); #Lymphocytes 2.1 thou/uL (1.20-3.40); #Monocytes 0.6 thou/uL (0.11-0.59); #Neutrophils 8.4 thou/uL (1.40-6.50); %Basophils 0.3 % (0.0-1.0); %Eosinophils 3.2 % (0.0-10.0); %Monocytes 5.3 % (0.0-10.0); %Neutrophils 73.2 % (42.0-75.0); Mean Corpuscular HGB CONC 31.5 g/dL (32.0-36.0); Mean Corpuscular Hemoglobin 27.1 pg (27.0-31.0); Mean Corpuscular Volume 85.9 fL (78.0-98.0); Mean Platelet Volume 8.4 fL (7.4-10.4); Platelet Count 276 thou/uL (130-400); RBC Distribution Width 12.4 % (11.5-14.5); Red Blood Cell (RBC) Count 4.07 mill/uL (4.20-5.40); White Blood Cell (WBC) Count 11.5 thou/uL (4.8-10.8)
--- NOTE | 2018-12-28 18:48 | ULT ---
LEFT LOWER EXTREMITY VENOUS DOPPLER WITH SPECTRAL ANALYSIS AND COLOR FLOW EVALUATION 12/28/18 HISTORY: Left lower extremity edema. FINDINGS: Morgan scale, color flow, doppler evaluation, with spectral analysis of the left lower extremity venous structures is performed with 2D imaging. The left lower extremity common femoral, superficial femora l, popliteal, posterior tibial, and most proximal greater saphenous and profunda femoral veins are im aged. There is normal lumen compressibility, flow and augmentation of the visualized deep venous stru ctures of the left lower extremity. Minimal subcutaneous edema is seen in the distal left lower extremity. IMPRESSION: 1. No evidence of a DVT involving the visualized deep venous structures left lower extremity. 2. Minimal subcutaneous edema distal left lower extremity. POS: LAVONNE
[2018-12-28 18:51] LABS: Prothrombin Time 13.6 SEC (12.0-14.7)
[2018-12-28 19:06] LABS: ALT (SGPT) 12 U/L (8-55); AST (SGOT) 12 U/L (5-34); Albumin 3.3 g/dL (3.4-4.8); Alkaline Phosphatase 87 U/L (40-150); Anion Gap 13 mmol/L (10-20); BUN (Urea Nitrogen) 16 mg/dL (9.8-20.1); Bilirubin, Total 0.3 mg/dL (0.2-1.2); CK (CPK) 51 U/L (29-168); Calc. Creatinine Clearance 0 mL/min (70-130); Calcium 9.2 mg/dL (7.8-10.44); Carbon Dioxide 32 mmol/L (23-31); Chloride 98 mmol/L (98-107); Estimated GFR-MDRD 55; Globulin 3.8 g/dL (2.4-3.5); Glucose 201 mg/dL (83-110); Potassium 3.9 mmol/L (3.5-5.1); Protein, Total 7.1 g/dL (6.0-8.3); Sodium 139 mmol/L (136-145)
--- NOTE | 2018-12-28 19:08 | CT ---
NONCONTRAST CT CERVICAL SPINE 12/28/18 HISTORY: [facility] Seizure-like activity. Injury after fall. COMPARISON: 12/17/18. TECHNIQUE: Contiguous axial CT images are obtained through the cervical spine from the skull base to the level o f the T2 vertebral body. Sagittal and coronal reformat images are provided. FINDINGS: No fracture or subluxation is seen involving the cervical spine. Interspinous distances are within no rmal limits. Multilevel degenerative changes are again seen throughout the cervical spine with prominent bridging anterior osteophytes at the C4-5, C5-6, and C6-7 levels. There is prominent posterior osteophyte for mation at the C5-6 and C6-7 levels resulting in moderate and severe degrees of neural foraminal narro wing at these levels. However, findings are unchanged from prior exam. Prevertebral soft tissues are within normal limits. Postsurgical changes are seen in the region of the thyroid gland bilaterally with evidence of left th yroidectomy. Residual right thyroid tissue persists. The visualized lung apices are clear. IMPRESSION: 1. Multilevel degenerative changes in the cervical spine, stable from prior study. 2. No fracture or subluxation involving the cervical spine. POS: [facility]
--- NOTE | 2018-12-29 12:32 | EKG ---
Test Reason : SEIZURE Blood Pressure : / mmHG Vent. Rate : 073 BPM Atrial Rate : 073 BPM P-R Int : 146 ms QRS Dur : 086 ms QT Int : 394 ms P-R-T Axes : 022 -08 065 degrees QTc Int : 434 ms Normal sinus rhythm Baseline Artifact Present Confirmed by KELVIN DESIR DO ([id number]), script editor CARLITOS LOFTON ([id number]) on 12/29/2018 12:31:29 PM Referred By: Confirmed By:KELVIN DESIR DO
== END 2018-12-28 19:59 ==
LOC: ERS 17:11
DX: E11.649 Type 2 diabetes mellitus with hypoglycemia without coma (principal); E03.9 Hypothyroidism, unspecified; E66.9 Obesity, unspecified; G47.00 Insomnia, unspecified; I10 Essential (primary) hypertension; E11.40 Type 2 diabetes mellitus with diabetic neuropathy, unspecified; Z79.4 Long term (current) use of insulin; Z79.891 Long term (current) use of opiate analgesic; Z79.82 Long term (current) use of aspirin
CPT/HCPCS: 36415; 36416; 70450; 71045; 72125; 80053; 81003; 81015; 82550; 83605; 84484; 85025; 85610; 85730; 93005

== ENCOUNTER 2019-01-17 00:35 | Inpatient (IN) | payer MEDICARE, MEDICAID ==
[2019-01-17 01:16] LABS: #Eosinphils 0.4 thou/uL (0.0-0.7); #Lymphocytes 2.2 thou/uL (1.20-3.40); #Monocytes 0.9 thou/uL (0.11-0.59); %Basophils 0.3 % (0.0-1.0); %Eosinophils 3.9 % (0.0-10.0); %Lymphocytes 23.1 % (21.0-51.0); %Monocytes 9.1 % (0.0-10.0); %Neutrophils 63.7 % (42.0-75.0); Hemoglobin 9.9 g/dL (12.0-16.0); Mean Corpuscular HGB CONC 32.2 g/dL (32.0-36.0); Mean Corpuscular Hemoglobin 27.5 pg (27.0-31.0); Mean Corpuscular Volume 85.5 fL (78.0-98.0); Platelet Count 314 thou/uL (130-400); RBC Distribution Width 12.4 % (11.5-14.5); White Blood Cell (WBC) Count 9.3 thou/uL (4.8-10.8)
[2019-01-17 01:38] LABS: ALT (SGPT) 13 U/L (8-55); AST (SGOT) 16 U/L (5-34); Albumin 3.3 g/dL (3.4-4.8); Alkaline Phosphatase 89 U/L (40-150); Anion Gap 12 mmol/L (10-20); BUN (Urea Nitrogen) 26 mg/dL (9.8-20.1); Bilirubin, Total 0.3 mg/dL (0.2-1.2); Calc. Creatinine Clearance 0 mL/min (70-130); Calcium 9.1 mg/dL (7.8-10.44); Carbon Dioxide 27 mmol/L (23-31); Chloride 102 mmol/L (98-107); Estimated GFR-MDRD 57; Globulin 3.8 g/dL (2.4-3.5); Glucose 229 mg/dL (83-110); Potassium 4.4 mmol/L (3.5-5.1); Protein, Total 7.1 g/dL (6.0-8.3); Sodium 137 mmol/L (136-145)
[2019-01-17] MEDS ORDERED: methylPREDNISolone Sod Succ/PF 125 MG/2 ML VIAL ONE (02:19)
[2019-01-17] MEDS ORDERED: Acetaminophen 325 MG TAB PO PRN ×2 (05:01→06:06)
[2019-01-17] MEDS ORDERED: Ondansetron ODT 4 MG TAB SL PRN (05:01)
[2019-01-17] MEDS ORDERED: Ondansetron PF 4 MG/2 ML Vial IVP PRN (05:01)
--- NOTE | 2019-01-17 05:21 | PDOC.FPRHP ---
- History of Present Illness Chief Complaint: SOB History of Present Illness: 78yo F with pmh of HTN presents for 1 day hx of increasing SOB. Pt does not know of any exacerbating factor. she does have related sensation of substernal Chest tightness without radiation. no transforming factors for either symptom. No diaphoresis, not worsened on exertion. Pt has been taking increased dose of lasix on outpt basis (now 40mg PO QAM and 20mg PO QPM) though she denies hx of CHF. No fever/chills. ED Course: duonebs, solumedrol, lasix - Allergies/Adverse Reactions Allergies Allergy/AdvReac Type Severity Reaction Status Date / Time codeine AdvReac vomiting Verified 01/17/19 00:39 COD Allergy Emesis Uncoded 01/17/19 00:39 - Home Medications Medication Instructions Recorded Confirmed Type Albuterol Sulfate [Proair HFA] 1 - 2 puff INH Q6HR PRN 07/28/16 01/25/18 History Amlodipine [Norvasc] 10 mg PO DAILY 07/28/16 01/25/18 History Carvedilol 25 mg PO BID 07/28/16 01/25/18 History Furosemide [Lasix] 40 mg PO QAM 07/28/16 01/25/18 History rOPINIRole HCl [Ropinirole HCl] 0.5 mg PO BID 07/28/16 01/17/19 History Aspirin [Children's Aspirin] 81 mg PO DAILY 12/16/16 12/16/16 History Levothyroxine Sodium [Synthroid] 150 mcg PO DAILY 12/16/16 12/16/16 History Pregabalin [Lyrica] 100 mg PO BID 12/16/16 01/17/19 History amLODIPine Besylate [Amlodipine 10 mg PO DAILY 12/16/16 01/17/19 History Besylate] Atorvastatin Calcium [Lipitor] 10 mg PO HS 03/28/17 01/25/18 History Potassium Chloride 10 meq PO DAILY 03/28/17 01/17/19 History Escitalopram Oxalate 10 mg PO DAILY #90 tablet 05/04/17 01/25/18 Rx Nystatin [Nystop] 1 applic TOP BID 01/25/18 01/25/18 History Acetaminophen [Tylenol Regular 650 mg PO Q4H PRN tab 01/31/18 Rx Strength] Amitriptyline HCl 50 mg PO HS PRN 01/17/19 History Furosemide [Lasix] 20 mg PO QPM 01/17/19 History Levemir Flexpen [Levemir FlexPen] 45 unit SC QAM 01/17/19 History Lisinopril 40 mg PO 01/17/19 History Polyethylene Glycol 3350 [Miralax] 17 gm PO DAILY PRN 01/17/19 History hydrALAZINE [Apresoline] 25 mg PO BID 01/17/19 01/17/19 History metFORMIN HCl [Metformin HCl] 1,000 mg PO BID 01/17/19 01/17/19 History - History PMHx: DM, HTN, pt not sure about other issues PSHx: back, partial thyroidectomy, c section, r shoulder, pt not sure about other issues FHx: colon cancer Social: 6 py smoking hx many years ago, denies alcohol and drugs - Review of Systems General: denies: fever/chills, fatigue Eyes: denies: eye pain, vision changes ENT: denies: nasal congestion Respiratory: reports: shortness of breath, exercise intolerance. denies: cough Cardiovascular: reports: chest pain. denies: palpitation, edema Gastrointestinal: denies: nausea, vomiting Genitourinary: denies: incontinence, dysuria Skin: denies: rashes, lesions Musculoskeletal: reports: pain (diffuse). denies: tenderness Neurological: denies: numbness, syncope, seizure Psychological: denies: anxiety, depression - Vital signs BP: 163/59, Pulse: 90, Resp: 20, Temp: 98.4 (Oral), Pain: 2, O2 sat: 93 on 2L Oxygen, Time: 01/17/2019 05:30. weight 120kg - Physical Exam Constitutional: NAD HEENT: EOMI, grossly normal vision, grossly normal hearing Neck: supple, trachea midline Chest: no-tender to palpation Heart: RRR, normal S1/S2, other (+1 pitting edema) Lungs: CTAB, no respiratory distress Abdomen: soft, non-tender Musculoskeletal: normal structure, normal tone Neurological: no focal deficit, normal sensation Skin: no rash/lesions, good turgor Heme/Lymphatic: no unusual bruising or bleeding, no purpura Psychiatric: normal mood and affect, good judgment and insight FMR H&P: Results - Labs Result Diagrams: 01/17/19 01:05 01/17/19 01:05 Lab results: WBC 9.3 thou/uL (4.8-10.8) 01/17/19 01:05 Hgb 9.9 g/dL (12.0-16.0) L 01/17/19 01:05 Hct 30.7 % (36.0-47.0) L 01/17/19 01:05 MCV 85.5 fL (78.0-98.0) 01/17/19 01:05 Plt Count 314 thou/uL (130-400) 01/17/19 01:05 Neutrophils % 63.7 % (42.0-75.0) 01/17/19 01:05 Sodium 137 mmol/L (136-145) 01/17/19 01:05 Potassium 4.4 mmol/L (3.5-5.1) 01/17/19 01:05 Chloride 102 mmol/L (98-107) 01/17/19 01:05 Carbon Dioxide 27 mmol/L (23-31) 01/17/19 01:05 BUN 26 mg/dL (9.8-20.1) H 01/17/19 01:05 Creatinine 0.95 mg/dL (0.6-1.1) 01/17/19 01:05 Glucose 229 mg/dL (83-110) H 01/17/19 01:05 Calcium 9.1 mg/dL (7.8-10.44) 01/17/19 01:05 Total Bilirubin 0.3 mg/dL (0.2-1.2) 01/17/19 01:05 AST 16 U/L (5-34) 01/17/19 01:05 ALT 13 U/L (8-55) 01/17/19 01:05 Alkaline Phosphatase 89 U/L (40-150) 01/17/19 01:05 B-Natriuretic Peptide 397.5 pg/mL (0-100) H 01/17/19 01:05 Serum Total Protein 7.1 g/dL (6.0-8.3) 01/17/19 01:05 Albumin 3.3 g/dL (3.4-4.8) L 01/17/19 01:05 FMR H&P: A/P - Problem List (1) Atypical chest pain Current Visit: Yes Status: Acute Code(s): R07.89 - OTHER CHEST PAIN (2) CHF exacerbation Current Visit: Yes Status: Acute Code(s): I50.9 - HEART FAILURE, UNSPECIFIED (3) Anemia Current Visit: Yes Status: Acute Code(s): D64.9 - ANEMIA, UNSPECIFIED (4) DM2 (diabetes mellitus, type 2) Current Visit: No Status: Chronic Qualifiers: Diabetes mellitus complication status: with hyperglycemia (5) HTN (hypertension) Current Visit: No Status: Chronic Code(s): I10 - ESSENTIAL (PRIMARY) HYPERTENSION Qualifiers: - Plan HFpEF exacerbation A- Pt SOB but satting well on RA, BNP 397 well up from most recent 45 1 month ago. Additionally exam findings of +1 edema. Pulm exam unremarkable. Last echo in 03/2017 shows 60-65% EF and 1/3 diastolic dysfunction. P- lasix 40mg IV bid - echo - strict I/O - fluid restriction Atypical CP A- Though pain is substernal and pressure like it is not precipitated or exacerbated by exertion. EKG unconcerning, trop negative x1. P- continue to trend trops - consider outpt stress test as pt is currently under CHF exacerbation HTN -pt does not know any home medications, will start when list is brought from home DM -pt does not know any home medications, will start when list is brought from home -SSI, accuchecks anemia A- normocytic P- iron studies CODE: Full FMR H&P: Upper Level - Pertinent history Rula Suarez is a 78 year old female with a past history of DM, CHF, HTN, HLD who presents to the ED from [facility] due to one day history of shortness of breath. She was noted to have O2 sat of 87% at [place]. Per [place] staff, she does not follow a fluid restriction. She also complains of substernal pleuritic chest pain for the past day. Of note she was recently treated for CHF exacerbation outpatient. - Pertinent findings Exam: General: alert and oriented; in no distress Heart: regular rate and rhythm, no murmurs, rubs, or gallops Lungs: clear to auscultation bilaterally, no crackles, wheezes, or rhonchi. Extremities: 1+ bilateral lower extremity pitting edema BNP: 396 CXR: prelim read shows findings consistent with volume overload. - Plan Date/Time: 01/17/19 4842 I, Rossy Morgan, have evaluated this patient and agree with findings/plan as outlined by learning and development intern resident. Pertinent changes/additions are listed here. Acute hypoxic respiratory failure, secondary to CHF exacerbation - IV diuresis, - strict I/Os, daily weights, fluid restriction. - will wean oxygen as tolerated - last Echocardiogram from 2017; will repeat. Diabetes mellitus - will restart pt's home regimen, and titrate as needed - AC/HS accuchecks - SSI. regarding pt's chronic medical problems, will restart home medications as described above. Addendum - Attending - Attending Attestation Date/Time: 01/17/19 [id number] I personally evaluated the patient and discussed the management with Dr. Chatterjee. I agree with the History, Examination, Assessment and Plan documented above with any addition or exceptions noted below. The patient noted some pain with inspiration and expiration yesterday and had some shortness of breath. She is admitted for CHF exacerbation. Will place on IV lasix. Monitor I/O's. Repeat echo. Restart home meds.
[2019-01-17] MEDS ORDERED: Furosemide 40 MG/4 ML VIAL SLOW IVP SCH (06:00)
[2019-01-17] MEDS ORDERED: Ondansetron ODT 4 MG TAB PO PRN (06:06)
[2019-01-17] MEDS ORDERED: Furosemide 40 MG/4 ML VIAL ONE (06:12)
[2019-01-17] MEDS ORDERED: Dextrose 50% Abboject 50 ML SYRINGE SLOW IVP PRN (06:15)
[2019-01-17] MEDS ORDERED: Dextrose 5% in Water 1,000 ML IV PRN (06:15)
[2019-01-17 06:50] LABS: Iron 36 ug/dL (50-170); Iron Binding Capacity, Total 330 mcg/dL (265-497)
[2019-01-17 06:55] LABS: Troponin I Less than 0.010 ng/mL (< 0.028)
--- NOTE | 2019-01-17 07:39 | RAD ---
FXR Chest 1 View Portable History: [Shortness of breath] Comparison: Radiograph December 28, 2018 Findings: Heart size is enlarged. Mild edema. Mild pulmonary venous congestion. Small effusions. No p neumothorax. Right reversed total shoulder arthroplasty Impression: Findings suggesting mild decompensated congestive heart failure.
[2019-01-17] MEDS ORDERED: Amitriptyline HCl 25 MG TAB PO PRN (08:26)
[2019-01-17] MEDS ORDERED: Polyethylene Glycol 3350 17 GM Packet PO PRN (08:26)
[2019-01-17] MEDS ORDERED: Insulin Glargine 45 UNITS in Pre-Filled Syringe 1 EACH SC SCH (09:00)
[2019-01-17] MEDS ORDERED: Furosemide 40 MG TAB PO SCH (09:00)
[2019-01-17] MEDS ORDERED: Amlodipine 5 MG TAB PO SCH (09:00)
[2019-01-17] MEDS ORDERED: Non-Formulary Item 1 EACH (Levemir Flexpen [Levemir Flexpen] 45 UNIT) SC SCH (09:00)
[2019-01-17] MEDS ORDERED: Lisinopril 10 MG TAB ONE (11:48)
[2019-01-17] MEDS ORDERED: Furosemide 40 MG TAB ONE (11:51)
[2019-01-17] MEDS ORDERED: Enoxaparin Sodium 40 MG/0.4 ML SYRINGE ONE (11:51)
[2019-01-17] MEDS ORDERED: Aspirin Chewable 81 MG TAB ONE (11:51)
[2019-01-17] MEDS ORDERED: Amlodipine 5 MG TAB ONE (11:51)
[2019-01-17] MEDS: Amlodipine 10 MG TAB PO SCH (15:35)
[2019-01-17] MEDS: Carvedilol 25 MG TAB PO SCH ×2 (15:35→21:26)
[2019-01-17] MEDS: Aspirin Chewable 81 MG TAB PO SCH (15:35)
[2019-01-17] MEDS: Escitalopram Oxalate 10 mg Tablet PO SCH (15:36)
[2019-01-17] MEDS: Enoxaparin Sodium 40 MG/0.4 ML SYRINGE SC SCH (15:36)
[2019-01-17] MEDS: hydrALAZINE 25 MG TAB PO SCH ×2 (15:37→21:29)
[2019-01-17] MEDS: Lisinopril 20 MG TAB PO SCH (15:37)
[2019-01-17] MEDS: Nystatin Powder 15 GM BOT TOP SCH ×2 (15:37→21:29)
[2019-01-17] MEDS: rOPINIRole HCl 0.5 MG TAB PO SCH ×2 (15:38→21:26)
[2019-01-17] MEDS: Pregabalin 50 MG CAP PO SCH ×2 (15:38→21:27)
[2019-01-17] MEDS: HumaLOG 300 UNITS/3 ML VIAL SC PRN ×2 (17:36→21:41)
[2019-01-17] MEDS: metFORMIN 500 MG TAB PO SCH (17:36)
[2019-01-17] MEDS ORDERED: Furosemide 20 MG TAB PO SCH (21:00)
[2019-01-17] MEDS: Atorvastatin Calcium 10 MG TAB PO SCH (21:27)
[2019-01-18 04:46] LABS: #Basophils 0.1 thou/uL (0.0-0.2); #Lymphocytes 1.5 thou/uL (1.20-3.40); #Neutrophils 7.3 thou/uL (1.40-6.50); %Basophils 0.5 % (0.0-1.0); %Eosinophils 0.2 % (0.0-10.0); %Lymphocytes 15.3 % (21.0-51.0); %Monocytes 9.8 % (0.0-10.0); %Neutrophils 74.3 % (42.0-75.0); Hemoglobin 9.2 g/dL (12.0-16.0); Mean Corpuscular HGB CONC 32.1 g/dL (32.0-36.0); Mean Corpuscular Hemoglobin 27.7 pg (27.0-31.0); Mean Platelet Volume 8.5 fL (7.4-10.4); Platelet Count 275 thou/uL (130-400); RBC Distribution Width 12.5 % (11.5-14.5); Red Blood Cell (RBC) Count 3.33 mill/uL (4.20-5.40); White Blood Cell (WBC) Count 9.8 thou/uL (4.8-10.8)
[2019-01-18] MEDS: Levothyroxine 150 MCG TAB PO SCH (05:52)
[2019-01-18] MEDS: HumaLOG 300 UNITS/3 ML VIAL SC PRN (05:56)
[2019-01-18] MEDS ORDERED: HumaLOG 300 UNITS/3 ML VIAL SC PRN (06:55)
[2019-01-18] MEDS ORDERED: Metolazone 5 MG TAB PO SCH (07:00)
--- NOTE | 2019-01-18 08:42 | PDOC.FM ---
- Subjective Subjective: JACOB overnight. Pt reports resolution of CP and reports improved breathing. Unfortunately, not significant diuresis yesterday. - Objective Vital Signs & Weight: Vital Signs (12 hours) Pulse Resp BP Pulse Ox 01/18/19 04:00 75 18 134/62 95 01/18/19 02:43 98 01/18/19 00:10 86 18 154/68 H 97 01/17/19 21:29 82 Weight Weight 114.804 kg I&O: 01/17/19 01/18/19 01/19/19 06:59 06:59 06:59 Intake Total 1280 Output Total 1350 Balance -70 Result Diagrams: 01/18/19 04:37 01/18/19 08:50 Phys Exam - Physical Examination Constitutional: NAD Mobidly obese HEENT: PERRLA, sclera anicteric Neck: no nodes Pos JVD, Pos hepatojugular reflux Respiratory: no wheezing scattered rales Cardiovascular: RRR, no significant murmur, no rub Gastrointestinal: soft, non-tender, no distention, positive bowel sounds Musculoskeletal: pulses present, edema present 2+ pitting edema to knees Neurological: non-focal, moves all 4 limbs Psychiatric: normal affect, A&O x 3 Skin: no rash, cap refill <2 seconds Dx/Plan (1) (HFpEF) heart failure with preserved ejection fraction Code(s): I50.30 - UNSPECIFIED DIASTOLIC (CONGESTIVE) HEART FAILURE Status: Acute (2) DM2 (diabetes mellitus, type 2) Status: Chronic Qualifiers: Diabetes mellitus complication status: with hyperglycemia (3) Dyslipidemia Code(s): E78.5 - HYPERLIPIDEMIA, UNSPECIFIED Status: Chronic (4) HTN (hypertension) Code(s): I10 - ESSENTIAL (PRIMARY) HYPERTENSION Status: Chronic Qualifiers: - Plan Plan: 1) HFpEF: - continue diuresis - increase lasix to 40 IV and add metolazone - strict Is Os - daily weights - salt/fluid restrict diet - Echo shows EF 55-60 with E/A flow reversal suggestive of diastolic dysfunction 2)DMII - uncontrolled blood sugars -increase lantus to 50U QAM and add aggressive sliding scale - accuchecks ACHS 3) HTN: mildly elevated [ressures - cpmtinue to monitor, consider increase home meds vs addition of another pressure control agent 4) HLD: home meds Dispo: stable, pt still requiring NC to maintain saturations, will increase IV lasix and add metolazone. Insulin adjustments as needed for persistent hyperglycemia. Addendum - Attending - Attending Attestation Date/Time: 01/18/191937 I personally evaluated the patient and discussed the management with Dr. Jim. I agree with the History, Examination, Assessment and Plan documented above with any addition or exceptions noted below. Pt has diastolic dysfunction on the echo. She needs additional diuresis. Adjusting IV lasix and adding metolazone.
[2019-01-18] MEDS ORDERED: Furosemide 40 MG/4 ML VIAL SLOW IVP SCH ×2 (09:00→16:00)
[2019-01-18 09:40] LABS: Anion Gap 11 mmol/L (10-20); BUN (Urea Nitrogen) 37 mg/dL (9.8-20.1); Calc. Creatinine Clearance 89 mL/min (70-130); Calcium 8.9 mg/dL (7.8-10.44); Carbon Dioxide 30 mmol/L (23-31); Chloride 103 mmol/L (98-107); Estimated GFR-MDRD 56; Glucose 220 mg/dL (83-110); Potassium 3.7 mmol/L (3.5-5.1); Sodium 140 mmol/L (136-145)
[2019-01-18] MEDS: Amlodipine 10 MG TAB PO SCH (09:53)
[2019-01-18] MEDS: Escitalopram Oxalate 10 mg Tablet PO SCH (09:53)
[2019-01-18] MEDS: Aspirin Chewable 81 MG TAB PO SCH (09:53)
[2019-01-18] MEDS: Potassium Chloride 10 MEQ TAB PO SCH (09:53)
[2019-01-18] MEDS: hydrALAZINE 25 MG TAB PO SCH ×2 (09:53→20:41)
[2019-01-18] MEDS: metFORMIN 500 MG TAB PO SCH ×2 (09:53→17:17)
[2019-01-18] MEDS: Carvedilol 25 MG TAB PO SCH ×2 (09:53→20:41)
[2019-01-18] MEDS: Pregabalin 50 MG CAP PO SCH ×2 (09:54→20:41)
[2019-01-18] MEDS: Lisinopril 20 MG TAB PO SCH (09:54)
[2019-01-18] MEDS: Insulin Glargine 50 UNITS in Pre-Filled Syringe 1 EACH SC SCH (09:55)
[2019-01-18] MEDS: Enoxaparin Sodium 40 MG/0.4 ML SYRINGE SC SCH (09:55)
[2019-01-18] MEDS: rOPINIRole HCl 0.5 MG TAB PO SCH ×2 (10:02→20:41)
[2019-01-18] MEDS: Nystatin Powder 15 GM BOT TOP SCH ×2 (10:02→20:42)
[2019-01-18] MEDS: Atorvastatin Calcium 10 MG TAB PO SCH (20:41)
[2019-01-19 05:35] LABS: #Basophils 0.1 thou/uL (0.0-0.2); #Eosinphils 0.2 thou/uL (0.0-0.7); #Lymphocytes 2.9 thou/uL (1.20-3.40); #Monocytes 0.7 thou/uL (0.11-0.59); #Neutrophils 4.3 thou/uL (1.40-6.50); %Basophils 0.8 % (0.0-1.0); %Lymphocytes 36.3 % (21.0-51.0); %Monocytes 8.4 % (0.0-10.0); %Neutrophils 52.6 % (42.0-75.0); Hemoglobin 8.9 g/dL (12.0-16.0); Mean Corpuscular HGB CONC 31.2 g/dL (32.0-36.0); Mean Corpuscular Hemoglobin 27.7 pg (27.0-31.0); Mean Corpuscular Volume 88.5 fL (78.0-98.0); Mean Platelet Volume 8.6 fL (7.4-10.4); Platelet Count 275 thou/uL (130-400); RBC Distribution Width 12.8 % (11.5-14.5); White Blood Cell (WBC) Count 8.1 thou/uL (4.8-10.8)
[2019-01-19] MEDS: Levothyroxine 150 MCG TAB PO SCH (05:38)
[2019-01-19] MEDS: Furosemide 40 MG/4 ML VIAL SLOW IVP SCH ×2 (05:38→14:12)
[2019-01-19 05:54] LABS: Anion Gap 8 mmol/L (10-20); BUN (Urea Nitrogen) 44 mg/dL (9.8-20.1); Calc. Creatinine Clearance 84 mL/min (70-130); Calcium 8.8 mg/dL (7.8-10.44); Carbon Dioxide 35 mmol/L (23-31); Chloride 103 mmol/L (98-107); Estimated GFR-MDRD 53; Glucose 65 mg/dL (83-110); Magnesium 2.7 mg/dL (1.6-2.6); Potassium 3.9 mmol/L (3.5-5.1); Sodium 142 mmol/L (136-145)
[2019-01-19] MEDS ORDERED: Insulin Regular 300 UNITS/3 ML VIAL SC PRN (06:24)
[2019-01-19] MEDS: Spironolactone 25 MG TAB PO SCH (07:24)
[2019-01-19] MEDS: Potassium Chloride 10 MEQ TAB PO SCH (07:24)
[2019-01-19] MEDS: metFORMIN 500 MG TAB PO SCH ×2 (07:24→16:04)
[2019-01-19] MEDS: Metolazone 5 MG TAB PO SCH (07:33)
--- NOTE | 2019-01-19 08:33 | PQF ---
SRIDHAR BEAVER NICHOLAS *r [id number] [id number] CLINICAL DOCUMENTATION IMPROVEMENT CLARIFICATION FORM: ICD-10 Updated PLEASE DO AN ADDENDUM TO THE PROGRESS NOTE WITH ANY DOCUMENTATION UPDATES OR ADDITIONS AND CARRY THROUGH TO DC SUMMARY. THANK YOU. DATE: 01-19-19 ATTN: DR. KHAN / DR. OPAL ENRIQUEZ Please exercise your independent, professional judgment in responding to the clarification form. Clinical indicators are provided on the bottom of this form for your review Please check appropriate box(s): BMI > 40 with associated diagnosis of: (check one) [ ] Morbid Obesity - Due to excess calories [ ] Overweight [ x ] Obesity [ ] Other diagnosis [ ] Unable to determine For continuity of documentation, please document condition throughout progress notes and discharge summary. Thank You. BMI < 19 Under weight 19 - 24.9 Healthy 25.0 - 29.9 Slightly Overweight 30.0 - 34.9 Obese 35.0 - 39.9 Severely Obese 40.0 and Over Morbidly Obese CLINICAL INDICATORS - SIGNS / SYMPTOMS / LABS * BMI of: 45 * STANDBY ASSISTANCE - 1 PERSON ASSIST - MILD GENERALIZED WEAKNESS; MAEW; OBESITY - 4-3 @ 1435 NURSING ASSESSMENT 4-3 ECHO: POOR VISUALIZATION D/T BODY HABITUS RISK FACTORS * USES WALKER - STANDBY ASSISTANCE - 1 PERSON ASSIST - MILD GENERALIZED WEAKNESS; MAEW; OBESITY - 4-3 @ 1435 NURSING ASSESSMENT TREATMENTS: 4-3 HEART HEALTHY - 1800 ML/DAY FLUID RESTRICTION - COPE DIET ORDER THANK YOU, JORDANA (This form is maintained as a part of the permanent medical record) 2014 [employer]. All Rights Reserved Jordana Hernandez, RN, BS [email or web address]
--- NOTE | 2019-01-19 08:33 | PDOC.FM ---
- Subjective Subjective: JACOB overnight. Pt reports continued improvement in respiratory status and resolution of chest discomfort. No other complaints. - Objective Vital Signs & Weight: Vital Signs (12 hours) Temp Pulse Resp BP BP Pulse Ox 01/19/19 07:14 96.6 F L 61 17 124/60 96 01/19/19 07:00 95 01/19/19 04:00 97.5 F L 53 L 16 143/66 H 95 01/18/19 20:41 64 135/58 L Weight Weight 112.899 kg I&O: 01/18/19 01/19/19 01/20/19 06:59 06:59 06:59 Intake Total 1280 350 Output Total 1350 850 Balance -70 -500 Result Diagrams: 01/19/19 05:05 01/19/19 05:05 Phys Exam - Physical Examination Constitutional: NAD HEENT: PERRLA, sclera anicteric Neck: no nodes, no JVD Respiratory: no wheezing, no rhonchi scattered rales Cardiovascular: RRR, no significant murmur, no rub Gastrointestinal: soft, non-tender, no distention, positive bowel sounds Musculoskeletal: pulses present, edema present 2+ Neurological: non-focal, normal sensation, moves all 4 limbs Psychiatric: normal affect Skin: no rash, cap refill <2 seconds Dx/Plan (1) (HFpEF) heart failure with preserved ejection fraction Code(s): I50.30 - UNSPECIFIED DIASTOLIC (CONGESTIVE) HEART FAILURE Status: Acute (2) DM2 (diabetes mellitus, type 2) Status: Chronic Qualifiers: Diabetes mellitus complication status: with hyperglycemia (3) Dyslipidemia Code(s): E78.5 - HYPERLIPIDEMIA, UNSPECIFIED Status: Chronic (4) HTN (hypertension) Code(s): I10 - ESSENTIAL (PRIMARY) HYPERTENSION Status: Chronic Qualifiers: (5) Obesity Code(s): E66.9 - OBESITY, UNSPECIFIED Status: Acute - Plan Plan: 1) HFpEF: - continue diuresis - increase lasix to 40 IV and add metolazone, add spironolactone daily: consider dc of coreg vs hydralazine - strict Is Os - daily weights - salt/fluid restrict diet - Echo shows EF 55-60 with E/A flow reversal suggestive of diastolic dysfunction 2)DMII - improving blood sugars, mod SSI and lantus - accuchecks ACHS 3) HTN: mildly elevated pressures - continue diuresis. Given wide pulse pressure likely related to hypervolemia - add spironolactone 4) HLD: home meds Dispo: stable, pt still requiring NC to maintain saturations, continue diuresis , strict IsOs, add spironolactone. Addendum - Attending - Attending Attestation Date/Time: 01/19/19 [id number] I personally evaluated the patient and discussed the management with Dr. Jim. I agree with the History, Examination, Assessment and Plan documented above with any addition or exceptions noted below. Pt had a blood sugar in the 60's. Backing down to moderate sliding scale insulin. Edema is improving. Continue diuresis. Mild increase in creatinine, will continue to monitor.
[2019-01-19] MEDS: Lisinopril 20 MG TAB PO SCH (09:32)
[2019-01-19] MEDS: Enoxaparin Sodium 40 MG/0.4 ML SYRINGE SC SCH (09:32)
[2019-01-19] MEDS: Escitalopram Oxalate 10 mg Tablet PO SCH (09:32)
[2019-01-19] MEDS: Amlodipine 10 MG TAB PO SCH (09:32)
[2019-01-19] MEDS: rOPINIRole HCl 0.5 MG TAB PO SCH ×2 (09:32→19:21)
[2019-01-19] MEDS: hydrALAZINE 25 MG TAB PO SCH ×2 (09:33→19:22)
[2019-01-19] MEDS: Pregabalin 50 MG CAP PO SCH ×2 (09:35→19:22)
[2019-01-19] MEDS: Carvedilol 25 MG TAB PO SCH ×2 (09:35→19:22)
[2019-01-19] MEDS: Aspirin Chewable 81 MG TAB PO SCH (09:35)
[2019-01-19] MEDS: Insulin Glargine 50 UNITS in Pre-Filled Syringe 1 EACH SC SCH (09:36)
[2019-01-19] MEDS: Nystatin Powder 15 GM BOT TOP SCH ×2 (09:36→19:36)
[2019-01-19] MEDS: Atorvastatin Calcium 10 MG TAB PO SCH (19:22)
[2019-01-20] MEDS: Acetaminophen 325 MG TAB PO PRN (00:57)
[2019-01-20 05:30] LABS: #Eosinphils 0.3 thou/uL (0.0-0.7); #Lymphocytes 3.6 thou/uL (1.20-3.40); %Basophils 0.3 % (0.0-1.0); %Eosinophils 2.7 % (0.0-10.0); %Lymphocytes 29.9 % (21.0-51.0); %Monocytes 8.4 % (0.0-10.0); %Neutrophils 58.7 % (42.0-75.0); Hemoglobin 10.1 g/dL (12.0-16.0); Mean Corpuscular HGB CONC 31.3 g/dL (32.0-36.0); Mean Corpuscular Hemoglobin 26.9 pg (27.0-31.0); Mean Corpuscular Volume 85.9 fL (78.0-98.0); Mean Platelet Volume 8.9 fL (7.4-10.4); Platelet Count 345 thou/uL (130-400); RBC Distribution Width 12.6 % (11.5-14.5); Red Blood Cell (RBC) Count 3.75 mill/uL (4.20-5.40); White Blood Cell (WBC) Count 11.9 thou/uL (4.8-10.8)
[2019-01-20] MEDS: Furosemide 40 MG/4 ML VIAL SLOW IVP SCH ×2 (05:42→15:10)
[2019-01-20] MEDS: Levothyroxine 150 MCG TAB PO SCH (05:42)
[2019-01-20 05:48] LABS: Anion Gap 12 mmol/L (10-20); BUN (Urea Nitrogen) 45 mg/dL (9.8-20.1); Calc. Creatinine Clearance 84 mL/min (70-130); Calcium 8.9 mg/dL (7.8-10.44); Carbon Dioxide 31 mmol/L (23-31); Chloride 98 mmol/L (98-107); Estimated GFR-MDRD 53; Potassium 3.3 mmol/L (3.5-5.1); Sodium 138 mmol/L (136-145)
[2019-01-20 05:51] LABS: Glucose 33 mg/dL (83-110)
[2019-01-20] MEDS ORDERED: Potassium Chloride 40 MEQ in Premix Bag 1 BAG IVPB SCH (06:15)
--- NOTE | 2019-01-20 06:31 | PDOC.FM ---
Addendum entered and electronically signed by Mallory Snow MD 01/20/19 10:29 : A/P: DM2: hypoglycemic episode this AM. Dec lantus to 40 U, change from mod to mild SS Original Note: - Subjective Subjective: NAEO. Reports improvement in swelling, no chest pain, no breathing issues Hypoglycemia on AM labs, given juice - Objective MAR Reviewed: Yes Vital Signs & Weight: Vital Signs (12 hours) Temp Pulse Resp BP BP Pulse Ox 01/20/19 04:00 97.7 F 60 20 172/75 H 92 L 01/19/19 20:08 95 01/19/19 19:57 97.4 F L 58 L 18 134/57 L 95 01/19/19 19:22 58 L 134/57 L Weight Weight 112.899 kg I&O: 01/18/19 01/19/19 01/20/19 06:59 06:59 06:59 Intake Total 9077 599 6146 Output Total 2112 984 6343 Balance -70 500 -820 Result Diagrams: 01/20/19 05:09 01/20/19 05:09 Phys Exam - Physical Examination Constitutional: NAD HEENT: PERRLA, moist MMs, sclera anicteric Respiratory: no wheezing, clear to auscultation bilateral Cardiovascular: RRR, no significant murmur 1+ edema up to mid calves Neurological: moves all 4 limbs Psychiatric: A&O x 3 Dx/Plan (1) Hypoglycemia Code(s): E16.2 - HYPOGLYCEMIA, UNSPECIFIED Status: Acute (2) (HFpEF) heart failure with preserved ejection fraction Code(s): I50.30 - UNSPECIFIED DIASTOLIC (CONGESTIVE) HEART FAILURE Status: Acute (3) DM2 (diabetes mellitus, type 2) Status: Chronic Qualifiers: Diabetes mellitus complication status: with hyperglycemia (4) HTN (hypertension) Code(s): I10 - ESSENTIAL (PRIMARY) HYPERTENSION Status: Chronic Qualifiers: Hypertension type: essential hypertension Qualified Code(s): I10 - Essential (primary) hypertension (5) Hypokalemia Code(s): E87.6 - HYPOKALEMIA Status: Resolved - Plan Plan: 1) HFpEF: - continue diuresis - continue lasix 40 IV, metolazone, and spironolactone daily: consider dc of coreg vs hydralazine - strict Is Os - daily weights - salt/fluid restrict diet - Echo shows EF 55-60 with E/A flow reversal suggestive of diastolic dysfunction 2)DMII - improving blood sugars, mod SSI and lantus - accuchecks ACHS 3) HTN: mildly elevated pressures - continue diuresis. Given wide pulse pressure likely related to hypervolemia - continue spironolactone 4) HLD: home meds 5) Leukocytosis: afebrile, no bands, monitor vitals & rpt in AM 6) Hypokalemia: replaced IV Dispo: stable, pt has been on RA., continue diuresis with current regimen due to still fluid overloaded. Replaced potassium Addendum - Attending - Attending Attestation Date/Time: 01/20/19 1078 I personally evaluated the patient and discussed the management with Dr. Snow. I agree with the History, Examination, Assessment and Plan documented above with any addition or exceptions noted below. The patient is sleeping in the chair in the room and states she has slept there all night. Her CHF exacerbation is improving with lower extremity edema slowly improving. Will continue diuresis. She has also had hypoglycemia. Will decrease basal insulin.
[2019-01-20] MEDS: Potassium Chloride 10 MEQ TAB PO SCH (09:25)
[2019-01-20] MEDS: Spironolactone 25 MG TAB PO SCH (09:25)
[2019-01-20] MEDS ORDERED: Insulin Regular 300 UNITS/3 ML VIAL SC PRN (09:25)
[2019-01-20] MEDS: Potassium Chloride 20 MEQ in Premix Bag 1 BAG IVPB SCH ×2 (09:25→13:50)
[2019-01-20] MEDS: Metolazone 5 MG TAB PO SCH (09:26)
[2019-01-20] MEDS: Amlodipine 10 MG TAB PO SCH (09:27)
[2019-01-20] MEDS: Enoxaparin Sodium 40 MG/0.4 ML SYRINGE SC SCH (09:28)
[2019-01-20] MEDS: Carvedilol 25 MG TAB PO SCH ×2 (09:28→20:13)
[2019-01-20] MEDS: Aspirin Chewable 81 MG TAB PO SCH (09:28)
[2019-01-20] MEDS: Escitalopram Oxalate 10 mg Tablet PO SCH (09:29)
[2019-01-20] MEDS: Lisinopril 20 MG TAB PO SCH (09:29)
[2019-01-20] MEDS: Pregabalin 50 MG CAP PO SCH ×2 (09:29→20:14)
[2019-01-20] MEDS: Nystatin Powder 15 GM BOT TOP SCH ×2 (09:29→20:14)
[2019-01-20] MEDS: hydrALAZINE 25 MG TAB PO SCH ×2 (09:30→20:13)
[2019-01-20] MEDS ORDERED: Dextrose 50% Abboject 50 ML SYRINGE IVP PRN (09:31)
[2019-01-20] MEDS ORDERED: Dextrose 5% in Water 1,000 ML IV PRN (09:31)
[2019-01-20] MEDS: rOPINIRole HCl 0.5 MG TAB PO SCH ×2 (09:31→20:14)
[2019-01-20] MEDS: metFORMIN 500 MG TAB PO SCH ×2 (09:53→17:30)
[2019-01-20] MEDS ORDERED: Insulin Glargine 40 UNITS in Pre-Filled Syringe 1 EACH SC SCH (10:24)
[2019-01-20] MEDS: Insulin Glargine 50 UNITS in Pre-Filled Syringe 1 EACH SC SCH (11:09)
[2019-01-20] MEDS: Insulin Regular 300 UNITS/3 ML VIAL SC PRN ×2 (12:00→17:31)
[2019-01-20 15:07] VITALS: BMI 47.7
[2019-01-20] MEDS: Atorvastatin Calcium 10 MG TAB PO SCH (20:13)
[2019-01-21 05:08] LABS: #Eosinphils 0.2 thou/uL (0.0-0.7); #Lymphocytes 2.4 thou/uL (1.20-3.40); #Monocytes 0.7 thou/uL (0.11-0.59); #Neutrophils 5.6 thou/uL (1.40-6.50); %Basophils 0.2 % (0.0-1.0); %Lymphocytes 26.4 % (21.0-51.0); %Monocytes 8.2 % (0.0-10.0); %Neutrophils 63.2 % (42.0-75.0); Hemoglobin 9.7 g/dL (12.0-16.0); Mean Corpuscular HGB CONC 31.3 g/dL (32.0-36.0); Mean Corpuscular Hemoglobin 27.4 pg (27.0-31.0); Mean Corpuscular Volume 87.6 fL (78.0-98.0); Mean Platelet Volume 9.1 fL (7.4-10.4); Platelet Count 268 thou/uL (130-400); RBC Distribution Width 12.5 % (11.5-14.5); Red Blood Cell (RBC) Count 3.55 mill/uL (4.20-5.40); White Blood Cell (WBC) Count 8.9 thou/uL (4.8-10.8)
[2019-01-21 05:27] LABS: Anion Gap 14 mmol/L (10-20); BUN (Urea Nitrogen) 42 mg/dL (9.8-20.1); Calc. Creatinine Clearance 71 mL/min (70-130); Calcium 8.8 mg/dL (7.8-10.44); Carbon Dioxide 28 mmol/L (23-31); Chloride 98 mmol/L (98-107); Estimated GFR-MDRD 45; Glucose 106 mg/dL (83-110); Magnesium 1.8 mg/dL (1.6-2.6); Potassium 3.9 mmol/L (3.5-5.1); Sodium 136 mmol/L (136-145)
[2019-01-21] MEDS: Furosemide 40 MG/4 ML VIAL SLOW IVP SCH (05:43)
[2019-01-21] MEDS: Levothyroxine 150 MCG TAB PO SCH (05:43)
[2019-01-21] MEDS: Potassium Chloride 10 MEQ TAB PO SCH (08:57)
[2019-01-21] MEDS: Spironolactone 25 MG TAB PO SCH (08:58)
[2019-01-21] MEDS: metFORMIN 500 MG TAB PO SCH ×2 (08:59→18:03)
[2019-01-21] MEDS: Carvedilol 25 MG TAB PO SCH ×2 (08:59→20:55)
[2019-01-21] MEDS: Amlodipine 10 MG TAB PO SCH (08:59)
[2019-01-21] MEDS: Aspirin Chewable 81 MG TAB PO SCH (08:59)
[2019-01-21] MEDS: Lisinopril 20 MG TAB PO SCH (09:00)
[2019-01-21] MEDS: Nystatin Powder 15 GM BOT TOP SCH ×2 (09:00→20:56)
[2019-01-21] MEDS ORDERED: Insulin Glargine 40 UNITS in Pre-Filled Syringe 1 EACH SC SCH (09:00)
[2019-01-21] MEDS: Escitalopram Oxalate 10 mg Tablet PO SCH (09:00)
[2019-01-21] MEDS: hydrALAZINE 25 MG TAB PO SCH ×2 (09:01→20:55)
[2019-01-21] MEDS: rOPINIRole HCl 0.5 MG TAB PO SCH ×2 (09:01→20:54)
[2019-01-21] MEDS: Pregabalin 50 MG CAP PO SCH ×2 (09:24→20:53)
[2019-01-21] MEDS: Enoxaparin Sodium 40 MG/0.4 ML SYRINGE SC SCH (09:25)
[2019-01-21] MEDS: Insulin Glargine 30 UNITS in Pre-Filled Syringe 1 EACH SC SCH (09:26)
--- NOTE | 2019-01-21 09:28 | PDOC.FM ---
- Subjective Subjective: sxatic hypoglycemic episode this AM with sugar of 55. given sandwich/juice, resolved in room. Patient had no other complaints. .Denies resp. issues, improvement in lower leg swelling - Objective Vital Signs & Weight: Vital Signs (12 hours) Temp Pulse Resp BP BP Pulse Ox 01/21/19 08:39 97.9 F 70 19 155/72 H 96 01/21/19 04:02 98 F 66 16 127/66 93 L Weight Weight 110.722 kg I&O: 01/20/19 01/21/19 01/22/19 06:59 06:59 06:59 Intake Total 1080 1920 Output Total 1900 Balance -820 1920 Result Diagrams: 01/21/19 04:17 01/21/19 04:17 Phys Exam - Physical Examination Constitutional: NAD HEENT: PERRLA, moist MMs Respiratory: no wheezing, clear to auscultation bilateral Cardiovascular: RRR, no significant murmur 1+ edema up to mid calves, b/l Neurological: moves all 4 limbs Dx/Plan (1) Hypoglycemia Code(s): E16.2 - HYPOGLYCEMIA, UNSPECIFIED Status: Acute (2) (HFpEF) heart failure with preserved ejection fraction Code(s): I50.30 - UNSPECIFIED DIASTOLIC (CONGESTIVE) HEART FAILURE Status: Acute (3) DM2 (diabetes mellitus, type 2) Status: Chronic Qualifiers: Diabetes mellitus complication status: with hyperglycemia (4) HTN (hypertension) Code(s): I10 - ESSENTIAL (PRIMARY) HYPERTENSION Status: Chronic Qualifiers: Hypertension type: essential hypertension Qualified Code(s): I10 - Essential (primary) hypertension (5) Hypokalemia Code(s): E87.6 - HYPOKALEMIA Status: Resolved - Plan Plan: 1) HFpEF: - continue diuresis - clinically fluid improved, stable, no resp issues - transition to home lasix 40mg po BID, continue spironolactone, lisinopril, metolazone x1, then d/c - strict Is Os - daily weights - salt/fluid restrict diet - Echo shows EF 55-60 with E/A flow reversal suggestive of diastolic dysfunction 2)DMII - hypoglycemic episode, dec basal insulin to 30 units - back down to mild SS - accuchecks ACHS 3) HTN: mildly elevated pressures - stable, continue current regimen 4) HLD: home meds 5) Leukocytosis, resolved 6) Hypokalemia, resolved Dispo: stable, pt has been on RA., transition to PO lasix home regimen. Metolazone x1 today. Dec basal insulin to 30 units, mild SS. Likely d/c tomorrow Addendum - Attending - Attending Attestation Date/Time: 01/21/19 0712 I personally evaluated the patient and discussed the management with Dr. Snow. I agree with the History, Examination, Assessment and Plan documented above with any addition or exceptions noted below. The patient is continuing to improve. will transition to oral lasix today. Continue to monitor i/o's for CHF exacerbation. Mild RAFA likely 2/2 diuresis. She had another hypoglycemic episode and will decrease insulin further.
[2019-01-21] MEDS ORDERED: Metolazone 5 MG TAB PO SCH (09:30)
[2019-01-21] MEDS ORDERED: Furosemide 40 MG TAB PO SCH (12:00)
[2019-01-21] MEDS: Insulin Regular 300 UNITS/3 ML VIAL SC PRN (12:15)
[2019-01-21] MEDS: Acetaminophen 325 MG TAB PO PRN ×2 (12:15→18:03)
[2019-01-21] MEDS: Furosemide 40 MG TAB PO SCH (14:39)
[2019-01-21] MEDS ORDERED: Cyclobenzaprine 10 MG TAB PO SCH (19:45)
[2019-01-21] MEDS: Atorvastatin Calcium 10 MG TAB PO SCH (20:55)
[2019-01-22] MEDS: Acetaminophen 325 MG TAB PO PRN ×3 (00:39→12:05)
[2019-01-22] MEDS: Levothyroxine 150 MCG TAB PO SCH (04:25)
[2019-01-22 05:51] LABS: #Eosinphils 0.3 thou/uL (0.0-0.7); #Lymphocytes 3.1 thou/uL (1.20-3.40); #Monocytes 0.7 thou/uL (0.11-0.59); #Neutrophils 4.1 thou/uL (1.40-6.50); %Basophils 0.6 % (0.0-1.0); %Eosinophils 3.5 % (0.0-10.0); %Lymphocytes 37.7 % (21.0-51.0); %Monocytes 8.6 % (0.0-10.0); %Neutrophils 49.7 % (42.0-75.0); Hemoglobin 9.7 g/dL (12.0-16.0); Mean Corpuscular HGB CONC 32.4 g/dL (32.0-36.0); Mean Corpuscular Hemoglobin 27.9 pg (27.0-31.0); Mean Corpuscular Volume 86.3 fL (78.0-98.0); Platelet Count 256 thou/uL (130-400); RBC Distribution Width 12.4 % (11.5-14.5); Red Blood Cell (RBC) Count 3.47 mill/uL (4.20-5.40); White Blood Cell (WBC) Count 8.3 thou/uL (4.8-10.8)
--- NOTE | 2019-01-22 06:05 | PDOC.FM ---
- Subjective Subjective: Ms. Suarez reports L hip pain that is improved compared to previous days. She denies chest pain, SOB. - Objective MAR Reviewed: Yes Vital Signs & Weight: Vital Signs (12 hours) Temp Pulse Resp BP BP BP Pulse Ox 01/22/19 04:00 97.8 F 66 20 145/64 H 92 L 01/21/19 23:00 98.7 F 68 20 132/63 92 L 01/21/19 20:55 64 134/67 01/21/19 19:20 97.8 F 64 20 134/63 95 Weight Weight 106.64 kg I&O: 01/20/19 01/21/19 01/22/19 06:59 06:59 06:59 Intake Total 1080 1920 1430 Output Total 1900 1620 Balance -820 1920 -190 Result Diagrams: 01/22/19 05:28 01/22/19 05:28 Phys Exam - Physical Examination Constitutional: NAD Respiratory: no wheezing, clear to auscultation bilateral Cardiovascular: RRR Gastrointestinal: soft, positive bowel sounds Neurological: non-focal Psychiatric: normal affect Dx/Plan (1) (HFpEF) heart failure with preserved ejection fraction Code(s): I50.30 - UNSPECIFIED DIASTOLIC (CONGESTIVE) HEART FAILURE Status: Acute (2) Atypical chest pain Code(s): R07.89 - OTHER CHEST PAIN Status: Acute (3) Hypoglycemia Code(s): E16.2 - HYPOGLYCEMIA, UNSPECIFIED Status: Acute (4) DM2 (diabetes mellitus, type 2) Status: Chronic Qualifiers: Diabetes mellitus complication status: with hyperglycemia (5) HTN (hypertension) Code(s): I10 - ESSENTIAL (PRIMARY) HYPERTENSION Status: Chronic Qualifiers: (6) Hypothyroid Code(s): E03.9 - HYPOTHYROIDISM, UNSPECIFIED Status: Chronic - Plan Plan: 1) HFpEF: - continue po diuresis - clinically fluid improved, stable, no resp issues - continue home lasix 40mg po BID, continue spironolactone, lisinopril, metolazone x1, then d/c - strict Is Os - daily weights, 114->106 kg since admission - salt/fluid restrict diet - Echo shows EF 55-60 with E/A flow reversal suggestive of diastolic dysfunction 2)DMII - hypoglycemic episode, continue basal insulin at 30 units - BG 137->192 in past 24 hrs - mild SS - accuchecks ACHS 3) HTN: mildly elevated pressures - stable, continue current regimen 4) HLD: home meds 5) Leukocytosis, resolved 6) Hypokalemia, resolved Dispo: likely d/c today Addendum - Attending - Attending Attestation Date/Time: 01/22/19 0489 I personally evaluated the patient and discussed the management with Dr. Almeida. I agree with the History, Examination, Assessment and Plan documented above with any addition or exceptions noted below. The patient's lower extremity is much better. She is feeling back to baseline. Will d/c back to [place].
[2019-01-22 06:18] LABS: Anion Gap 11 mmol/L (10-20); BUN (Urea Nitrogen) 40 mg/dL (9.8-20.1); Calc. Creatinine Clearance 73 mL/min (70-130); Calcium 9.1 mg/dL (7.8-10.44); Carbon Dioxide 32 mmol/L (23-31); Chloride 97 mmol/L (98-107); Estimated GFR-MDRD 48; Glucose 165 mg/dL (83-110); Sodium 136 mmol/L (136-145)
[2019-01-22] MEDS: Amlodipine 10 MG TAB PO SCH (10:30)
[2019-01-22] MEDS: rOPINIRole HCl 0.5 MG TAB PO SCH (10:30)
[2019-01-22] MEDS: Carvedilol 25 MG TAB PO SCH (10:31)
[2019-01-22] MEDS: Aspirin Chewable 81 MG TAB PO SCH (10:31)
[2019-01-22] MEDS: metFORMIN 500 MG TAB PO SCH (10:31)
[2019-01-22] MEDS: Furosemide 40 MG TAB PO SCH (10:31)
[2019-01-22] MEDS: Escitalopram Oxalate 10 mg Tablet PO SCH (10:31)
[2019-01-22] MEDS: Spironolactone 25 MG TAB PO SCH (10:31)
[2019-01-22] MEDS: Enoxaparin Sodium 40 MG/0.4 ML SYRINGE SC SCH (10:32)
[2019-01-22] MEDS: hydrALAZINE 25 MG TAB PO SCH (10:32)
[2019-01-22] MEDS: Potassium Chloride 10 MEQ TAB PO SCH (10:32)
[2019-01-22] MEDS: Lisinopril 20 MG TAB PO SCH (10:32)
[2019-01-22] MEDS: Pregabalin 50 MG CAP PO SCH (10:39)
[2019-01-22] MEDS: Insulin Glargine 30 UNITS in Pre-Filled Syringe 1 EACH SC SCH (10:39)
[2019-01-22] MEDS: Nystatin Powder 15 GM BOT TOP SCH (10:42)
[2019-01-22] MEDS ORDERED: traMADol HCl 50 MG TAB PO SCH (14:15)
[2019-01-22 14:34] VITALS: BP 135/62; TEMP 97.4
--- NOTE | 2019-01-23 06:17 | DIS ---
DATE OF ADMISSION: 01/17/2019 DATE OF DISCHARGE: 01/22/2019 RESIDENT: Silvia Almeida DO. ADMITTING ATTENDING: Tavon Atkinson MD. DISCHARGE ATTENDING: Fany Saldana MD. CONSULTS: None. PROCEDURES: 1. 01/17/2019, chest x-ray showed mild decompensated congestive heart failure. 2. 01/17/2019, echocardiogram showed technically inadequate exam. Consider a repeat exam. Ejection fraction estimated at 55% to 60% percent, impaired relaxation compatible with diastolic dysfunction. Mild tricuspid regurgitation. Mild dilated left atrium. PRIMARY DIAGNOSES: 1. Heart failure with preserved ejection fraction. 2. Type 2 diabetes. SECONDARY DIAGNOSES: 1. Hypertension. 2. Hyperlipidemia. 3. Leukocytosis. 4. Hypokalemia. DISCHARGE MEDICATIONS: 1. Ropinirole 0.5 mg p.o. b.i.d. 2. Amlodipine 10 mg p.o. b.i.d. 3. Carvedilol 25 mg p.o. b.i.d. 4. Levothyroxine 150 mcg p.o. q.a.m. 5. Aspirin 81 mg p.o. daily. 6. Lyrica 100 mg p.o. b.i.d. 7. Lipitor 10 mg p.o. at bedtime. 8. Potassium chloride 10 mEq p.o. daily. 9. Escitalopram 10 mg p.o. daily. 10. Nystatin one application topical b.i.d. 11. Metformin 1000 mg p.o. b.i.d. 12. Hydralazine 25 mg p.o. b.i.d. 13. Lisinopril 40 mg p.o. daily. 14. Ibuprofen 600 mg p.o. q.6 hours p.r.n. 15. Tramadol 50 mg p.o. q.i.d. p.r.n. 16. Insulin glargine 40 units subcu at bedtime. 17. Acetaminophen 650 mg p.o. q.6 hours p.r.n. 18. Melatonin 5 mg p.o. at bedtime p.r.n. 19. Mucinex 600 mg p.o. b.i.d. 20. Albuterol 2 puffs inhaled q.4 hours p.r.n. 21. Lasix 40 mg p.o. b.i.d. 22. Amitriptyline 25 mg p.o. at bedtime p.r.n. 23. Spironolactone 12.5 mg p.o. q.a.m. DISCONTINUED MEDICATIONS: None. HISTORY OF PRESENT ILLNESS: A 78-year-old female with past medical history of hypertension, presented for 1-day of increasing shortness of breath associated with chest tightness without radiation. The patient had been taking Lasix on the outpatient basis. She was admitted for heart failure with preserved ejection fraction exacerbation. She was saturating well on room air at the time of admission. BNP was elevated at 397. IV Lasix was started. Atypical chest pain was evaluated and was negative with negative troponin and an unconcerning EKG. The patient's home medications were otherwise continued. Her IV Lasix was eventually transitioned to p.o. She was started on spironolactone. Additionally in the hospital, she was given a dose of metolazone. However, this was then discontinued. Her weight decreased from 114 to 106 kg at the time of discharge. DISPOSITION: Stable. DISCHARGE INSTRUCTIONS: 1. Location: [facility]. 2. Diet: Diabetic, fluid restriction, low sodium. 3. Activity: As tolerated. 4. Followup: Follow up with PCP, Dr. Saldana, in 7 days. Job ID: [id number]
== END 2019-01-22 16:15 | DRG 291 ==
LOC: ERS 00:35 → ERHOLD 02:45 → OBSVTOIN 13:00 → 2SW 13:42 → 2NO 01-18 19:13
PROVIDERS: ADMIT Family Medicine; ATTEND Family Medicine
DX: I11.0 Hypertensive heart disease with heart failure (principal); J96.01 Acute respiratory failure with hypoxia; N17.9 Acute kidney failure, unspecified; Z68.42 Body mass index [BMI] 45.0-49.9, adult; I50.33 Acute on chronic diastolic (congestive) heart failure; R07.89 Other chest pain; D64.9 Anemia, unspecified; E78.5 Hyperlipidemia, unspecified; E11.65 Type 2 diabetes mellitus with hyperglycemia; E66.9 Obesity, unspecified; E87.6 Hypokalemia; D72.829 Elevated white blood cell count, unspecified; T50.1X5A Adverse effect of loop [high-ceiling] diuretics, initial encounter; E11.649 Type 2 diabetes mellitus with hypoglycemia without coma; Z88.5 Allergy status to narcotic agent; Z79.4 Long term (current) use of insulin; Z79.899 Other long term (current) drug therapy
CPT/HCPCS: 36415; 36416; 71045; 80048; 80053; 82728; 83540; 83550; 83735; 83880; 84484; 85025; 93005; 93306; 93798; 94640; 96372; J1650; J1815; J1825; J1940; J2930; J3480; J7620

== ENCOUNTER 2019-02-19 05:32 | Inpatient (IN) | payer MEDICARE, MEDICAID ==
[2019-02-19] MEDS ORDERED: Fentanyl 100 MCG/2 ML VIAL ONE (05:48)
[2019-02-19 05:50] LABS: #Eosinphils 0.1 thou/uL (0.0-0.7); #Lymphocytes 1.4 thou/uL (1.20-3.40); #Monocytes 0.5 thou/uL (0.11-0.59); #Neutrophils 7.2 thou/uL (1.40-6.50); %Basophils 0.2 % (0.0-1.0); %Lymphocytes 15.2 % (21.0-51.0); %Monocytes 5.8 % (0.0-10.0); %Neutrophils 77.7 % (42.0-75.0); Hemoglobin 9.5 g/dL (12.0-16.0); Mean Corpuscular HGB CONC 31.7 g/dL (32.0-36.0); Mean Corpuscular Hemoglobin 27.2 pg (27.0-31.0); Mean Corpuscular Volume 85.8 fL (78.0-98.0); Mean Platelet Volume 10.1 fL (7.4-10.4); Platelet Count 278 thou/uL (130-400); RBC Distribution Width 12.7 % (11.5-14.5); Red Blood Cell (RBC) Count 3.49 mill/uL (4.20-5.40); White Blood Cell (WBC) Count 9.3 thou/uL (4.8-10.8)
[2019-02-19] MEDS ORDERED: Furosemide 40 MG/4 ML VIAL ONE (05:52)
[2019-02-19] MEDS ORDERED: Nitroglycerin 2% Ointment 1 INCH/1 GM Packet ONE (05:52)
[2019-02-19] MEDS ORDERED: Aspirin Chewable 81 MG TAB ONE (05:52)
[2019-02-19 07:17] LABS: Albumin 3.7 g/dL (3.4-4.8)
[2019-02-19 07:18] LABS: Chloride 103 mmol/L (98-107); Potassium 5.5 mmol/L (3.5-5.1); Sodium 139 mmol/L (136-145)
[2019-02-19 07:19] LABS: Calcium 9.7 mg/dL (7.8-10.44); Glucose 199 mg/dL (83-110)
[2019-02-19 07:20] LABS: Globulin 3.7 g/dL (2.4-3.5); Protein, Total 7.4 g/dL (6.0-8.3)
[2019-02-19 07:21] LABS: Anion Gap 15 mmol/L (10-20); Bilirubin, Total 0.3 mg/dL (0.2-1.2); Carbon Dioxide 27 mmol/L (23-31)
[2019-02-19 07:22] LABS: Alkaline Phosphatase 86 U/L (40-150)
[2019-02-19 07:23] LABS: Calc. Creatinine Clearance 0 mL/min (70-130); Estimated GFR-MDRD 37
[2019-02-19 07:24] LABS: BUN (Urea Nitrogen) 63 mg/dL (9.8-20.1)
--- NOTE | 2019-02-19 07:24 | RAD ---
Chest AP view INDICATION: Emergency examination for chest pain COMPARISON: January 17, 2019 FINDINGS: Lungs:There is perihilar interstitial and airspace opacities. Cardiac silhouette pulmonary vasculature:There is moderate cardiomegaly with mild pulmonary vascular congestion. Pleural spaces:No espinoza pleural effusion or pneumothorax is evident. Upper abdomen:No abnormality seen. Osseous structures: There is a stable right total shoulder replacement. There is scattered degenerati ve and osteoarthritic change present. IMPRESSION: Findings suggesting mild CHF. Recommend continued radiographic follow-up.
[2019-02-19 07:25] LABS: ALT (SGPT) 20 U/L (8-55); AST (SGOT) 17 U/L (5-34)
[2019-02-19 08:03] LABS: Troponin I Less than 0.010 ng/mL (< 0.028)
[2019-02-19] MEDS ORDERED: guaiFENesin ER 600 MG TAB PO PRN (09:00)
[2019-02-19] MEDS ORDERED: hydrALAZINE 20 MG/ML VIAL SLOW IVP PRN (09:36)
[2019-02-19] MEDS ORDERED: Melatonin 3 MG TAB PO PRN (09:36)
[2019-02-19] MEDS ORDERED: Dextrose 50% Abboject 50 ML SYRINGE SLOW IVP PRN (09:36)
[2019-02-19] MEDS ORDERED: Benzonatate 100 MG CAP PO PRN (09:36)
[2019-02-19] MEDS ORDERED: Ondansetron PF 4 MG/2 ML Vial IVP PRN (09:36)
[2019-02-19] MEDS ORDERED: HumaLOG 300 UNITS/3 ML VIAL SC PRN (09:36)
[2019-02-19] MEDS ORDERED: PROVENTIL INHALER 6.7 G (200 INHALATIONS) INH PRN (09:36)
[2019-02-19] MEDS ORDERED: traMADol HCl 50 MG TAB PO PRN (09:36)
[2019-02-19] MEDS ORDERED: Dextrose 5% in Water 1,000 ML IV PRN (09:36)
[2019-02-19] MEDS ORDERED: Guaifenesin DM 100-10/5 ML UDCUP PO PRN (09:36)
--- NOTE | 2019-02-19 09:44 | PDOC.EVN ---
Event Note - Event Note Event Note: Patient was recently admitted under [facility] and they will assume care and manage for this stay. Spoke with resident on inpt service and will transfer care to Family Medicine service.
[2019-02-19] MEDS ORDERED: Sodium Chloride 0.9% 1,000 ML IV SCH (10:00)
[2019-02-19] MEDS ORDERED: Ondansetron ODT 4 MG TAB PO PRN (10:00)
--- NOTE | 2019-02-19 10:02 | PDOC.FPRHP ---
- History of Present Illness Chief Complaint: sob History of Present Illness: 78 yo f with pmhx of HFpEF, HTN, DM presents with shortness of breath since last . She states she also has a cough, nonproductive that started on Tuesday and has chills today. She noticed on worsening shortness of breath both walking and sitting, and has noticed some worsening swelling in her legs. She states that her chest hurts with coughing but does not have chest pain otherwise. She was admitted to our service a month ago for a heart failure exacerbation and atypical chest pain. - Allergies/Adverse Reactions Allergies Allergy/AdvReac Type Severity Reaction Status Date / Time codeine AdvReac vomiting Verified 01/17/19 15:16 COD Allergy Emesis Uncoded 01/17/19 15:16 - Home Medications Medication Instructions Recorded Confirmed Type Amlodipine [Norvasc] 10 mg PO BID 07/28/16 02/19/19 History Carvedilol 25 mg PO BID-WM 07/28/16 02/19/19 History rOPINIRole HCl [Ropinirole HCl] 0.5 mg PO BID 07/28/16 02/19/19 History Aspirin [Children's Aspirin] 81 mg PO DAILY 12/16/16 02/19/19 History Levothyroxine Sodium [Synthroid] 150 mcg PO QAM 12/16/16 02/19/19 History Pregabalin [Lyrica] 100 mg PO BID 12/16/16 02/19/19 History Atorvastatin Calcium [Lipitor] 10 mg PO HS 03/28/17 02/19/19 History Potassium Chloride 10 meq PO DAILY 03/28/17 02/19/19 History Escitalopram Oxalate 10 mg PO DAILY #90 tablet 05/04/17 02/19/19 Rx Nystatin [Nystop] 1 applic TOP BID 01/25/18 02/19/19 History Acetaminophen [Tylenol] 650 mg PO Q6HR PRN 01/17/19 02/19/19 History Albuterol Sulfate [Proair HFA] 2 puff INH Q4HR PRN 01/17/19 02/19/19 History Amitriptyline HCl 1 - 2 mg PO HS PRN 01/17/19 02/19/19 History Furosemide [Lasix] 40 mg PO BID 01/17/19 02/19/19 History Ibuprofen 600 mg PO Q6HR PRN 01/17/19 02/19/19 History Insulin Glargine [Lantus Vial] 40 units SC HS 01/17/19 02/19/19 History Lisinopril 40 mg PO DAILY 01/17/19 02/19/19 History Melatonin 5 mg PO HS PRN 01/17/19 02/19/19 History guaiFENesin ER [Mucinex] 600 mg PO BID PRN 01/17/19 02/19/19 History hydrALAZINE [Apresoline] 25 mg PO BID 01/17/19 02/19/19 History metFORMIN HCl [Metformin HCl] 1,000 mg PO BID 01/17/19 02/19/19 History traMADol HCl [Tramadol HCl] 50 mg PO QID PRN 01/17/19 02/19/19 History Spironolactone [Aldactone] 12.5 mg PO QA- #30 tab 01/22/19 02/19/19 Rx - History PMHx: 1.DM, type 2 2. HFpEF 3. HTN 4. HLD 5. ?COPD PSHx: 1. back surgery 2. partial thyroidectomy 3. c section 4. r shoulder surgery FHx: 1. colon cancer 2. denies family hx of heart disease, heart attacks, strokes Social: 1. 20 pack year hx, quit 10 years ago 2. denies alcohol and drugs - Review of Systems General: reports: fever/chills ENT: denies: nasal congestion, rhinorrhea Respiratory: reports: cough, congestion, shortness of breath Cardiovascular: reports: edema, orthopnea. denies: chest pain, palpitation Gastrointestinal: denies: nausea, vomiting, diarrhea Genitourinary: denies: dysuria, polyuria Skin: denies: rashes, lesions Musculoskeletal: denies: pain, tenderness Neurological: denies: numbness, syncope Psychological: denies: anxiety, depression - Vital signs 01/22/19 02/19/19 13:50 08:50 Temperature 97.4 F L 98.7 F Pulse Rate 58 L 82 Blood Pressure 135/62 93/68 [Semi-Fowlers] Respiratory 20 25 H Rate O2 Sat by Pulse 93 L 98 Oximetry Oxygen Delivery Room Air Bi-PAP Method - Physical Exam Constitutional: awake, alert and oriented, well developed HEENT: normocephalic and atraumatic, PERRLA Neck: trachea midline, no thyromegaly Heart: normal S1/S2 (distant) -Heart: tachycardic Lungs: CTAB (decreased breath sounds throughout lung maher), no wheezing, other (mild retractions) Abdomen: soft, non-tender, other (hypoactive bowel sounds) Skin: no rash/lesions, capillary refill <2 seconds Heme/Lymphatic: no purpura Psychiatric: normal mood and affect, good judgment and insight FMR H&P: Results - Labs Result Diagrams: 02/19/19 05:40 02/19/19 06:47 Lab results: WBC 9.3 thou/uL (4.8-10.8) 02/19/19 05:40 Hgb 9.5 g/dL (12.0-16.0) L 02/19/19 05:40 Hct 30.0 % (36.0-47.0) L 02/19/19 05:40 MCV 85.8 fL (78.0-98.0) 02/19/19 05:40 Plt Count 278 thou/uL (130-400) 02/19/19 05:40 Neutrophils % 77.7 % (42.0-75.0) H 02/19/19 05:40 Sodium 139 mmol/L (136-145) 02/19/19 06:47 Potassium 5.5 mmol/L (3.5-5.1) H 02/19/19 06:47 Chloride 103 mmol/L (98-107) 02/19/19 06:47 Carbon Dioxide 27 mmol/L (23-31) 02/19/19 06:47 BUN 63 mg/dL (9.8-20.1) H 02/19/19 06:47 Creatinine 1.39 mg/dL (0.6-1.1) H 02/19/19 06:47 Glucose 199 mg/dL (83-110) H 02/19/19 06:47 Calcium 9.7 mg/dL (7.8-10.44) 02/19/19 06:47 Total Bilirubin 0.3 mg/dL (0.2-1.2) 02/19/19 06:47 AST 17 U/L (5-34) 02/19/19 06:47 ALT 20 U/L (8-55) 02/19/19 06:47 Alkaline Phosphatase 86 U/L (40-150) 02/19/19 06:47 B-Natriuretic Peptide 287.1 pg/mL (0-100) H 02/19/19 05:40 Serum Total Protein 7.4 g/dL (6.0-8.3) 02/19/19 06:47 Albumin 3.7 g/dL (3.4-4.8) 02/19/19 06:47 - Radiology Interpretation Chest x-ray Status: image reviewed by me, report reviewed by me (b/l pulmonary vascular congestion) FMR H&P: A/P - Problem List (1) Acute exacerbation of CHF (congestive heart failure) Current Visit: Yes Status: Acute Code(s): I50.9 - HEART FAILURE, UNSPECIFIED (2) (HFpEF) heart failure with preserved ejection fraction Current Visit: No Status: Acute Code(s): I50.30 - UNSPECIFIED DIASTOLIC ( CONGESTIVE) HEART FAILURE (3) RAFA (acute kidney injury) Current Visit: Yes Status: Acute Code(s): N17.9 - ACUTE KIDNEY FAILURE, UNSPECIFIED (4) Obesity Current Visit: No Status: Acute Code(s): E66.9 - OBESITY, UNSPECIFIED (5) DM2 (diabetes mellitus, type 2) Current Visit: No Status: Chronic Qualifiers: Diabetes mellitus complication status: with hyperglycemia (6) Dyslipidemia Current Visit: No Status: Chronic Code(s): E78.5 - HYPERLIPIDEMIA, UNSPECIFIED (7) HTN (hypertension) Current Visit: No Status: Chronic Code(s): I10 - ESSENTIAL (PRIMARY) HYPERTENSION Qualifiers: Hypertension type: essential hypertension Qualified Code(s): I10 - Essential (primary) hypertension (8) Hypothyroidism Current Visit: No Status: Chronic Code(s): E03.9 - HYPOTHYROIDISM, UNSPECIFIED Qualifiers: (9) Anemia Current Visit: No Status: Acute Code(s): D64.9 - ANEMIA, UNSPECIFIED - Plan 78 yo f with recent hospitalization d/t HFpEF and with pmhx of type 2 diabetes, HTN presents with shortness of breath and lower extremity swelling, admitted for an acute on chronic CHF exacerbation. #Acute heart failure exacerbation -pt has HFpEF -pt short of breath, with pulm vascular congestion on CXR and elevated BNP, -Pt normally takes Lasix 40mg po BID at home; started on 20mg IV BID here; will monitor I/O's and fluid restrict to 1200ml per day, daily weights as well. Net goal -1L -continue home meds -heart healthy diet -pt saturating well on room air now; pt was requiring bipap when she came in via EMS with report from them of 88% sats on room air when they arrived at the [facility] [place] #HFpEF -see above #RAFA -pt given NS 50ml/hr d/t heart hx and not wanting to further volume overload the patient. -will trend with serial BMPs -held potentially nephrotoxic meds such as metformin, lisinopril so as to not worsen pt's prerenal RAFA, nsaids -baseline ~.9 #?COPD exacerbation- --not documented in centricity, although pt was prescribed albuterol inh for wheezing last February and does have a smoking hx - pt with signs of pulm vasc congestion, and b/l LE edema, and elevated BNP, although decreased breath sounds throughout lung maher -albuterol prn given, and bernabe duonebs q6h; if no improvement, will consider full tx for COPD exacerbation with levaquin and prednisone, and if respiratory status worsens will order an ABG #DM, type 2 -Restarted insulin 40U glargine qhs -accuchecks ACHS -hypoglycemia protocol -held metformin d/t RAFA -will check a hba1c as prior in early December was 12 #HTN- -restarted home meds of amlodipine, hydralazine, spironolactone -held lisinopril d/t RAFA #HLD- -restarted atorvastatin 10mg daily #Hypothyroidism- -restarted home levothyroxine, will check a tsh #Anemia -normocytic -borderline iron deficient on prior labs -will monitor with serial cbcs DVT prophylaxis-lovenox Code status-full Dispo: pt can likely be transferred out of the [facility] tomorrow Tania Valdez, PGY-2, FMR H&P: Upper Level - Plan Date/Time: 02/19/19 1000 I, [], have evaluated this patient and agree with findings/plan as outlined by real estate internship resident. Pertinent changes/additions are listed here.
[2019-02-19] MEDS: hydrALAZINE 25 MG TAB PO SCH ×2 (10:51→20:55)
[2019-02-19] MEDS: Amlodipine 5 MG TAB PO SCH ×2 (10:51→20:55)
[2019-02-19] MEDS: Famotidine 20 MG TAB PO SCH ×2 (10:52→20:55)
[2019-02-19] MEDS: Escitalopram Oxalate 10 mg Tablet PO SCH (10:52)
[2019-02-19 11:28] VITALS: BMI 47.5
[2019-02-19] MEDS ORDERED: methylPREDNISolone Sod Succ 40 MG VIAL IVP SCH (12:00)
[2019-02-19 12:22] LABS: Troponin I Less than 0.010 ng/mL (< 0.028)
--- NOTE | 2019-02-19 13:03 | HP ---
HISTORY OF PRESENT ILLNESS: I have examined the patient. I have discussed the case with Dr. Clara Valdez. I agree with her assessment and plan. Briefly, Ms. Suarez is a 78-year-old lady, who is admitted with shortness of breath. She has a history of heart failure with preserved ejection fraction as well as possibly COPD. She stated that she has had a nonproductive cough, starting Tuesday with chills today. She noticed worsening shortness of breath over the same period of time, both sitting and with exertion. She denies any chest pain other than that occurs with cough. She has been admitted with a probable exacerbation of heart failure as well as possibly exacerbation of COPD. PHYSICAL EXAMINATION: VITAL SIGNS: Her blood pressure is 100/68, respirations are 24 and slightly labored. She is afebrile. Pulse ox on BiPAP was 98%. GENERAL: She is awake, alert, but appears tired and short of breath. She is using accessory muscles occasionally to breathe. EAR, NOSE, AND THROAT: No erythema or exudate. NECK: Thick. No JVD. CARDIAC: Heart sounds are distant. S4 apical gallop. No murmur or rub noted. LUNGS: Breath sounds are very diminished throughout. No wheezing, but she does have mild retractions. ABDOMEN: Obese, but flat and soft. EXTREMITIES: 1+ edema. LABORATORY DATA: CBC; white count is 9300, hemoglobin 9.5, hematocrit 30, with an MCV of 85.8. Chemistries; sodium 139, potassium 5.5, chloride 103, bicarb 27, BUN 63, creatinine 1.39. Troponins are less than 0.01 x3. Chest x-ray, impression is findings are suggestive of heart failure. There are perihilar interstitial and airspace opacities, moderate cardiomegaly with mild pulmonary vascular congestion. ASSESSMENT: 1. Exacerbation of heart failure. 2. Exacerbation of chronic obstructive pulmonary disease. PLAN: Admit. Increase IV Lasix. Continue DuoNebs, and observation. Job ID: [id number]
[2019-02-19] MEDS ORDERED: Furosemide 20 MG/2 ML VIAL SLOW IVP SCH (14:00)
[2019-02-19] MEDS: Furosemide 40 MG/4 ML VIAL SLOW IVP SCH (14:32)
[2019-02-19] MEDS: Carvedilol 25 MG TAB PO SCH (17:53)
[2019-02-19] MEDS: HumaLOG 300 UNITS/3 ML VIAL SC PRN (18:18)
[2019-02-19] MEDS ORDERED: Mometasone/Formoterol 120 PUFF INHALER INH SCH (18:30)
[2019-02-19] MEDS: Pregabalin 50 MG CAP PO SCH (20:44)
[2019-02-19] MEDS: rOPINIRole HCl 0.5 MG TAB PO SCH ×2 (20:55→20:56)
[2019-02-19] MEDS: Atorvastatin Calcium 10 MG TAB PO SCH (20:55)
[2019-02-19] MEDS: Insulin Glargine 40 UNITS in Pre-Filled Syringe 1 EACH SC SCH (20:56)
[2019-02-19] MEDS ORDERED: Amitriptyline HCl 25 MG TAB PO PRN (21:00)
[2019-02-19] MEDS: Nystatin Powder 15 GM BOT TOP SCH (21:08)
--- NOTE | 2019-02-20 05:43 | PDOC.FM ---
- Subjective Subjective: Pt states her breathing is improving. Nursing reports she gets anxious overnight. In addition, they report pt is always thirsty and is asking to drink fluids. - Objective MAR Reviewed: Yes Vital Signs & Weight: Vital Signs (12 hours) Temp Pulse Resp Pulse Ox 02/20/19 03:41 98.8 F 02/20/19 03:04 96 02/20/19 02:00 97 02/20/19 01:00 96 02/19/19 23:40 99.4 F 02/19/19 23:08 78 20 96 02/19/19 22:00 96 02/19/19 20:55 74 02/19/19 20:00 96 02/19/19 19:27 98.6 F 02/19/19 18:58 74 18 98 Weight Weight 118 kg Most Recent Monitor Data Heart Rate from ECG 83 NIBP 132/66 NIBP BP-Mean 88 Respiration from ECG 20 I&O: 02/18/19 02/19/19 02/20/19 06:59 06:59 06:59 Intake Total 1780 Output Total 1275 Balance 505 Result Diagrams: 02/20/19 04:47 02/20/19 04:47 Phys Exam - Physical Examination Constitutional: NAD Dry mm Neck: no JVD, full ROM Inspiratory crackles at bases, diffuse end expiratory wheezing Cardiovascular: RRR, no significant murmur Gastrointestinal: soft, non-tender, no distention, positive bowel sounds Musculoskeletal: pulses present, edema present (2+ pitting edema to knee) Neurological: moves all 4 limbs Skin: cap refill <2 seconds Dx/Plan (1) RAFA (acute kidney injury) Code(s): N17.9 - ACUTE KIDNEY FAILURE, UNSPECIFIED Status: Acute (2) Acute exacerbation of CHF (congestive heart failure) Code(s): I50.9 - HEART FAILURE, UNSPECIFIED Status: Acute (3) (HFpEF) heart failure with preserved ejection fraction Code(s): I50.30 - UNSPECIFIED DIASTOLIC (CONGESTIVE) HEART FAILURE Status: Acute (4) Anemia Code(s): D64.9 - ANEMIA, UNSPECIFIED Status: Acute (5) DM2 (diabetes mellitus, type 2) Status: Chronic Qualifiers: Diabetes mellitus complication status: with hyperglycemia (6) HTN (hypertension) Code(s): I10 - ESSENTIAL (PRIMARY) HYPERTENSION Status: Chronic Qualifiers: (7) Hypothyroidism Code(s): E03.9 - HYPOTHYROIDISM, UNSPECIFIED Status: Chronic Qualifiers: - Plan Plan: This is a 78 yo female with a pmh of DM2, HTN, hypothyroidism, HFpEF Acute exacerbation of HFpEF, with acute hypoxic respiratory failure -Stable over night on 3 L nc -Fluid restriction and 20mg IV lasix BID -HH diet -Consider moving to the floor based on clinical picture 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
[2019-02-20] MEDS: Levothyroxine 150 MCG TAB PO SCH (05:44)
[2019-02-20] MEDS: Furosemide 40 MG/4 ML VIAL SLOW IVP SCH ×2 (05:44→14:25)
[2019-02-20 06:37] LABS: Band 4 % (5-11); Eosinophils 1 % (0-10); Hemoglobin 8.9 g/dL (12.0-16.0); Lymphocytes 18 % (21-51); MDiff Complete? YES; Mean Corpuscular HGB CONC 31.7 g/dL (32.0-36.0); Mean Corpuscular Hemoglobin 27.5 pg (27.0-31.0); Mean Corpuscular Volume 86.8 fL (78.0-98.0); Mean Platelet Volume 9.6 fL (7.4-10.4); Monocytes 10 % (0-10); Neutrophil 67 % (42-75); Platelet Count 248 thou/uL (130-400); Platelet Morphology Comment Appears Adequate; RBC Distribution Width 12.5 % (11.5-14.5); Red Blood Cell (RBC) Count 3.22 mill/uL (4.20-5.40); White Blood Cell (WBC) Count 11.4 thou/uL (4.8-10.8)
[2019-02-20 06:55] LABS: ALT (SGPT) 14 U/L (8-55); AST (SGOT) 12 U/L (5-34); Albumin 3.4 g/dL (3.4-4.8); Alkaline Phosphatase 74 U/L (40-150); Anion Gap 14 mmol/L (10-20); BUN (Urea Nitrogen) 54 mg/dL (9.8-20.1); Bilirubin, Total 0.7 mg/dL (0.2-1.2); Calc. Creatinine Clearance 77 mL/min (70-130); Calcium 9.3 mg/dL (7.8-10.44); Carbon Dioxide 26 mmol/L (23-31); Chloride 102 mmol/L (98-107); Estimated GFR-MDRD 44; Globulin 3.6 g/dL (2.4-3.5); Glucose 46 mg/dL (83-110); Potassium 4.5 mmol/L (3.5-5.1); Sodium 137 mmol/L (136-145)
[2019-02-20] MEDS: Pregabalin 50 MG CAP PO SCH ×2 (08:21→19:46)
[2019-02-20] MEDS: Enoxaparin Sodium 40 MG/0.4 ML SYRINGE SC SCH (08:21)
[2019-02-20] MEDS: Escitalopram Oxalate 10 mg Tablet PO SCH (08:21)
[2019-02-20] MEDS: Carvedilol 25 MG TAB PO SCH ×2 (08:22→16:23)
[2019-02-20] MEDS: hydrALAZINE 25 MG TAB PO SCH ×2 (08:22→19:48)
[2019-02-20] MEDS: Amlodipine 5 MG TAB PO SCH ×2 (08:22→19:47)
[2019-02-20] MEDS: Aspirin Chewable 81 MG TAB PO SCH (08:22)
[2019-02-20] MEDS: Spironolactone 25 MG TAB PO SCH (08:23)
[2019-02-20] MEDS: Nystatin Powder 15 GM BOT TOP SCH ×2 (08:23→19:55)
--- NOTE | 2019-02-20 08:44 | RAD ---
PORTABLE CHEST: Comparison: Prior day's exam. History: Respiratory distress. FINDINGS: Heart size is enlarged. Pulmonary edema changes show improvement as compared to the prior exam. IMPRESSION: Cardiomegaly with improving pulmonary edema change. POS: LAVONNE
[2019-02-20] MEDS ORDERED: Non-Formulary Item 1 EACH (Potassium Chloride [Potassium Chloride] 10 MEQ) PO SCH (09:00)
[2019-02-20] MEDS: HumaLOG 300 UNITS/3 ML VIAL SC PRN ×2 (11:29→16:48)
--- NOTE | 2019-02-20 13:06 | PRG ---
DATE OF SERVICE: 02/20/2019 Ms. Suarez looks and feels better this morning. However, she is still short of breath. We repeated a chest x-ray today and the impression is cardiomegaly with improving pulmonary edema changes. We are continuing to vigorously diurese her. We are also giving her DuoNeb treatments, although she now tells me she only smoked for about 10 years less than a pack a day. Given her body habitus, I would be also concerned about the possibility of obstructive sleep apnea. We will talk to her perhaps about an outpatient study when she is discharged. In the event, clinically, she has improved and we will continue judicious use of Lasix with close monitoring of her renal function as well. Job ID: [id number]
[2019-02-20] MEDS: Famotidine 20 MG TAB PO SCH (19:46)
[2019-02-20] MEDS: Atorvastatin Calcium 10 MG TAB PO SCH (19:47)
[2019-02-20] MEDS: rOPINIRole HCl 0.5 MG TAB PO SCH (19:48)
[2019-02-20] MEDS: Insulin Glargine 40 UNITS in Pre-Filled Syringe 1 EACH SC SCH (19:49)
[2019-02-20] MEDS: Acetaminophen 500 MG TAB PO PRN (22:42)
[2019-02-21 04:50] LABS: Reticulocyte Count 3.4 % (0.5-1.5)
[2019-02-21 04:59] LABS: Eosinophils 1 % (0-10); Hemoglobin 7.8 g/dL (12.0-16.0); Hypochromia SLIGHT = 6-15 cells (100X) (0-5/hpf); Lymphocytes 20 % (21-51); MDiff Complete? YES; Mean Corpuscular HGB CONC 31.1 g/dL (32.0-36.0); Mean Corpuscular Hemoglobin 26.9 pg (27.0-31.0); Mean Corpuscular Volume 86.4 fL (78.0-98.0); Mean Platelet Volume 9.7 fL (7.4-10.4); Metamyelocyte 1 % (0-0); Monocytes 11 % (0-10); Neutrophil 67 % (42-75); Platelet Count 224 thou/uL (130-400); Platelet Morphology Comment Appears Adequate; RBC Distribution Width 12.3 % (11.5-14.5); Red Blood Cell (RBC) Count 2.89 mill/uL (4.20-5.40); White Blood Cell (WBC) Count 7.2 thou/uL (4.8-10.8)
[2019-02-21] MEDS: Levothyroxine 150 MCG TAB PO SCH (05:36)
[2019-02-21] MEDS: Furosemide 40 MG/4 ML VIAL SLOW IVP SCH ×2 (05:36→14:52)
--- NOTE | 2019-02-21 06:09 | PDOC.FM ---
- Subjective Subjective: Pt states she did better overnight. She reports improving breathing. She denies chest pain, dizziness, lightheadedness, or abdominal pain. - Objective MAR Reviewed: Yes Vital Signs & Weight: Vital Signs (12 hours) Temp Pulse Resp Pulse Ox 02/21/19 04:00 95 02/21/19 03:33 97.3 F L 02/21/19 00:17 66 19 02/20/19 23:24 98.4 F 02/20/19 22:39 97 02/20/19 22:00 96 02/20/19 21:00 96 02/20/19 20:00 95 02/20/19 19:48 63 02/20/19 19:47 63 02/20/19 19:25 97.6 F 02/20/19 18:43 63 18 98 Weight Weight 122.152 kg Most Recent Monitor Data Heart Rate from ECG 61 NIBP 120/48 NIBP BP-Mean 72 Respiration from ECG 19 I&O: 02/19/19 02/20/19 02/21/19 06:59 06:59 06:59 Intake Total 2380 1760 Output Total 1775 2300 Balance 605 -540 Result Diagrams: 02/21/19 04:16 02/20/19 04:47 Phys Exam - Physical Examination Constitutional: NAD dry mm Neck: no JVD Improving basilar crackles, improving wheezing Cardiovascular: RRR, no significant murmur Gastrointestinal: soft, non-tender, no distention, positive bowel sounds Musculoskeletal: pulses present, edema present Neurological: normal sensation, moves all 4 limbs Psychiatric: A&O x 3 Skin: cap refill <2 seconds Dx/Plan (1) RAFA (acute kidney injury) Code(s): N17.9 - ACUTE KIDNEY FAILURE, UNSPECIFIED Status: Acute (2) Acute exacerbation of CHF (congestive heart failure) Code(s): I50.9 - HEART FAILURE, UNSPECIFIED Status: Acute (3) (HFpEF) heart failure with preserved ejection fraction Code(s): I50.30 - UNSPECIFIED DIASTOLIC (CONGESTIVE) HEART FAILURE Status: Acute (4) Anemia Code(s): D64.9 - ANEMIA, UNSPECIFIED Status: Acute (5) DM2 (diabetes mellitus, type 2) Status: Chronic Qualifiers: Diabetes mellitus complication status: with hyperglycemia (6) HTN (hypertension) Code(s): I10 - ESSENTIAL (PRIMARY) HYPERTENSION Status: Chronic Qualifiers: (7) Hypothyroidism Code(s): E03.9 - HYPOTHYROIDISM, UNSPECIFIED Status: Chronic Qualifiers: - Plan Plan: This is a 78 yo female with a pmh of DM2, HTN, hypothyroidism, HFpEF Acute exacerbation of HFpEF, with acute hypoxic respiratory failure -Stable over night on 3 L nc -Fluid restriction and 20mg IV lasix BID -HH diet 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 B 12 deficiency SHWETHA -Undiagnosed, may be contributing to oxygen requirement Addendum - Attending - Attending Attestation Date/Time: 02/21/19 [id number] I personally evaluated the patient and discussed the management with Dr. Poole. I agree with the History, Examination, Assessment and Plan documented above with any addition or exceptions noted below. Patient here for hypoxia in setting of CHF exacerbation. She is improved today but will continue with IV diuresis and strict I/O. She has an anemia that we are in the process of working up, may need transfusion if continues to trend down as it is hypoproliferative.
[2019-02-21] MEDS: Enoxaparin Sodium 40 MG/0.4 ML SYRINGE SC SCH (09:03)
[2019-02-21] MEDS: Escitalopram Oxalate 10 mg Tablet PO SCH (09:03)
[2019-02-21] MEDS: Pregabalin 50 MG CAP PO SCH ×2 (09:03→20:30)
[2019-02-21] MEDS: rOPINIRole HCl 0.5 MG TAB PO SCH ×2 (09:03→20:31)
[2019-02-21] MEDS: Carvedilol 25 MG TAB PO SCH ×2 (09:03→16:48)
[2019-02-21] MEDS: Spironolactone 25 MG TAB PO SCH (09:04)
[2019-02-21] MEDS: Aspirin Chewable 81 MG TAB PO SCH (09:05)
[2019-02-21] MEDS: hydrALAZINE 25 MG TAB PO SCH ×2 (09:05→20:27)
[2019-02-21] MEDS: Amlodipine 5 MG TAB PO SCH ×2 (09:05→20:28)
[2019-02-21] MEDS: Nystatin Powder 15 GM BOT TOP SCH ×2 (09:06→20:31)
[2019-02-21] MEDS: Acetaminophen 500 MG TAB PO PRN ×2 (10:51→20:27)
[2019-02-21] MEDS: HumaLOG 300 UNITS/3 ML VIAL SC PRN ×2 (10:52→16:22)
[2019-02-21] MEDS: Famotidine 20 MG TAB PO SCH (20:30)
[2019-02-21] MEDS: Atorvastatin Calcium 10 MG TAB PO SCH (20:30)
[2019-02-21] MEDS: Insulin Glargine 40 UNITS in Pre-Filled Syringe 1 EACH SC SCH (20:31)
[2019-02-22] MEDS: traMADol HCl 50 MG TAB PO PRN ×2 (04:00→20:19)
--- NOTE | 2019-02-22 06:07 | PDOC.FM ---
- Subjective Subjective: Pt reports her breathing is improved overnight. She is still requesting water from everyone. She denies chest pain. - Objective MAR Reviewed: Yes Vital Signs & Weight: Vital Signs (12 hours) Temp Pulse Resp BP Pulse Ox 02/22/19 04:00 98.7 F 02/22/19 00:19 65 20 99 02/22/19 00:00 99.1 F 02/21/19 20:28 68 127/40 L 02/21/19 20:27 64 127/40 L 02/21/19 20:00 97.6 F 98 02/21/19 18:12 59 L 24 H 95 Weight Weight 122.152 kg Most Recent Monitor Data Heart Rate from ECG 71 NIBP 141/58 NIBP BP-Mean 85 Respiration from ECG 20 SpO2 99 I&O: 02/20/19 02/21/19 02/22/19 06:59 06:59 06:59 Intake Total 2380 1880 1320 Output Total 1775 2700 1700 Balance 428 -011 -941 Result Diagrams: 02/22/19 06:49 02/20/19 04:47 Phys Exam - Physical Examination Constitutional: NAD HEENT: moist MMs Neck: no JVD, full ROM Respiratory: wheezing present (end expiratory, improving) Good air movement, improving basilar crackles Cardiovascular: RRR, no significant murmur Gastrointestinal: soft, non-tender, no distention, positive bowel sounds Musculoskeletal: pulses present, edema present (1+ pitting edema) Neurological: moves all 4 limbs Psychiatric: A&O x 3 Skin: cap refill <2 seconds Dx/Plan (1) RAFA (acute kidney injury) Code(s): N17.9 - ACUTE KIDNEY FAILURE, UNSPECIFIED Status: Acute (2) Acute exacerbation of CHF (congestive heart failure) Code(s): I50.9 - HEART FAILURE, UNSPECIFIED Status: Acute (3) (HFpEF) heart failure with preserved ejection fraction Code(s): I50.30 - UNSPECIFIED DIASTOLIC (CONGESTIVE) HEART FAILURE Status: Acute (4) Anemia Code(s): D64.9 - ANEMIA, UNSPECIFIED Status: Acute (5) DM2 (diabetes mellitus, type 2) Status: Chronic Qualifiers: Diabetes mellitus complication status: with hyperglycemia (6) HTN (hypertension) Code(s): I10 - ESSENTIAL (PRIMARY) HYPERTENSION Status: Chronic Qualifiers: (7) Hypothyroidism Code(s): E03.9 - HYPOTHYROIDISM, UNSPECIFIED Status: Chronic Qualifiers: - Plan Plan: This is a 78 yo female with a pmh of DM2, HTN, hypothyroidism, HFpEF Acute exacerbation of HFpEF, with acute hypoxic respiratory failure -Stable over night on 3 L nc -Fluid restriction and change to PO laxis today -HH diet 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 B 12 deficiency SHWETHA -Undiagnosed, may be contributing to oxygen requirement Discussed pt care with PCP Dr. Saldana Addendum - Attending - Attending Attestation Date/Time: 02/22/19 1047 I personally evaluated the patient and discussed the management with Dr. Poole. I agree with the History, Examination, Assessment and Plan documented above with any addition or exceptions noted below. Patient improved, sitting up in bed this morning. Continue to wean O2 as tolerated and diurese. Limit fluids as she is attempting to drink more than what she is allowed, an issue also that exists as outpatient. Hgb stable. Continue current mgmt.
[2019-02-22] MEDS: Furosemide 40 MG/4 ML VIAL SLOW IVP SCH (06:15)
[2019-02-22] MEDS: Levothyroxine 150 MCG TAB PO SCH (06:18)
[2019-02-22] MEDS: HumaLOG 300 UNITS/3 ML VIAL SC PRN ×3 (06:20→17:51)
[2019-02-22 07:00] LABS: Hemoglobin 8.5 g/dL (12.0-16.0); Mean Corpuscular HGB CONC 31.6 g/dL (32.0-36.0); Mean Corpuscular Hemoglobin 27.3 pg (27.0-31.0); Mean Corpuscular Volume 86.4 fL (78.0-98.0); Mean Platelet Volume 9.3 fL (7.4-10.4); Platelet Count 216 thou/uL (130-400); RBC Distribution Width 11.9 % (11.5-14.5); Red Blood Cell (RBC) Count 3.13 mill/uL (4.20-5.40); White Blood Cell (WBC) Count 6.9 thou/uL (4.8-10.8)
[2019-02-22] MEDS ORDERED: Furosemide 20 MG TAB PO SCH (09:00)
[2019-02-22] MEDS: hydrALAZINE 25 MG TAB PO SCH ×2 (09:21→20:25)
[2019-02-22] MEDS: Enoxaparin Sodium 40 MG/0.4 ML SYRINGE SC SCH (09:21)
[2019-02-22] MEDS: Pregabalin 50 MG CAP PO SCH ×2 (09:21→20:17)
[2019-02-22] MEDS: Aspirin Chewable 81 MG TAB PO SCH (09:21)
[2019-02-22] MEDS: Carvedilol 25 MG TAB PO SCH ×2 (09:21→16:32)
[2019-02-22] MEDS: Furosemide 80 MG TAB PO SCH ×2 (09:22→13:13)
[2019-02-22] MEDS: Spironolactone 25 MG TAB PO SCH (09:22)
[2019-02-22] MEDS: Escitalopram Oxalate 10 mg Tablet PO SCH (09:22)
[2019-02-22] MEDS: Amlodipine 5 MG TAB PO SCH ×2 (09:22→20:25)
[2019-02-22] MEDS: rOPINIRole HCl 0.5 MG TAB PO SCH ×2 (09:23→20:17)
[2019-02-22] MEDS: Nystatin Powder 15 GM BOT TOP SCH ×2 (09:23→20:20)
[2019-02-22 16:10] LABS: Folate,Hemolysate 329.9 ng/mL (Not Estab.); Hematocrit 23.9 % (34.0-46.6); RBC Folate Test Component 1380 ng/mL (>498)
[2019-02-22] MEDS: Famotidine 20 MG TAB PO SCH (20:19)
[2019-02-22] MEDS: Atorvastatin Calcium 10 MG TAB PO SCH (20:19)
[2019-02-22] MEDS ORDERED: Insulin Glargine 46 UNITS in Pre-Filled Syringe 1 EACH SC SCH (21:00)
--- NOTE | 2019-02-23 05:56 | PDOC.FM ---
- Subjective Subjective: Pt reports improving breathing overnight. She denies chest pain or abdominal pain - Objective MAR Reviewed: Yes Vital Signs & Weight: Vital Signs (12 hours) Temp Pulse Resp BP Pulse Ox 02/23/19 03:49 98.2 F 02/23/19 00:09 63 20 95 02/22/19 23:35 97.8 F 02/22/19 20:25 64 154/58 H 02/22/19 20:00 99 02/22/19 19:19 98.4 F Weight Weight 121.653 kg Most Recent Monitor Data Heart Rate from ECG 61 NIBP 134/50 NIBP BP-Mean 78 Respiration from ECG 14 SpO2 99 I&O: 02/21/19 02/22/19 02/23/19 06:59 06:59 06:59 Intake Total 1880 1320 890 Output Total 2700 1700 1500 Balance -820 -380 -610 Result Diagrams: 02/22/19 06:49 02/23/19 08:55 Phys Exam - Physical Examination Constitutional: NAD dry mm Neck: no JVD, full ROM Improving wheezing and basilar crackles Cardiovascular: RRR, no significant murmur Gastrointestinal: soft, non-tender, no distention, positive bowel sounds Musculoskeletal: pulses present, edema present Neurological: moves all 4 limbs Psychiatric: A&O x 3 Skin: cap refill <2 seconds Dx/Plan (1) RAFA (acute kidney injury) Code(s): N17.9 - ACUTE KIDNEY FAILURE, UNSPECIFIED Status: Acute (2) Acute exacerbation of CHF (congestive heart failure) Code(s): I50.9 - HEART FAILURE, UNSPECIFIED Status: Acute (3) (HFpEF) heart failure with preserved ejection fraction Code(s): I50.30 - UNSPECIFIED DIASTOLIC (CONGESTIVE) HEART FAILURE Status: Acute (4) Anemia Code(s): D64.9 - ANEMIA, UNSPECIFIED Status: Acute (5) DM2 (diabetes mellitus, type 2) Status: Chronic Qualifiers: Diabetes mellitus complication status: with hyperglycemia (6) HTN (hypertension) Code(s): I10 - ESSENTIAL (PRIMARY) HYPERTENSION Status: Chronic Qualifiers: (7) Hypothyroidism Code(s): E03.9 - HYPOTHYROIDISM, UNSPECIFIED Status: Chronic Qualifiers: - Plan Plan: This is a 78 yo female with a pmh of DM2, HTN, hypothyroidism, HFpEF Acute exacerbation of HFpEF, with acute hypoxic respiratory failure -Stable over night on 1.5 L nc -Fluid restriction and PO lasix, down 1205 ml during entire stay -HH diet 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 B 12 deficiency SHWETHA -Undiagnosed, may be contributing to oxygen requirement Addendum - Attending - Attending Attestation Date/Time: 02/23/19 6495 I personally evaluated the patient and discussed the management with Dr. Poole. I agree with the History, Examination, Assessment and Plan documented above with any addition or exceptions noted below. Patient reports doing well and denies concerns. Continue to wean O2 as tolerated. She continues on home diuresis regimen and fluid restriction. Ambulate as able. Consider discharge back to [place] if doing well this afternoon.
[2019-02-23] MEDS: Levothyroxine 150 MCG TAB PO SCH (06:25)
[2019-02-23] MEDS: Pregabalin 50 MG CAP PO SCH (09:33)
[2019-02-23] MEDS: Enoxaparin Sodium 40 MG/0.4 ML SYRINGE SC SCH (09:34)
[2019-02-23] MEDS: Aspirin Chewable 81 MG TAB PO SCH (09:34)
[2019-02-23] MEDS: Escitalopram Oxalate 10 mg Tablet PO SCH (09:34)
[2019-02-23] MEDS: Carvedilol 25 MG TAB PO SCH ×2 (09:35→16:49)
[2019-02-23] MEDS: Amlodipine 5 MG TAB PO SCH (09:35)
[2019-02-23] MEDS: Spironolactone 25 MG TAB PO SCH (09:35)
[2019-02-23] MEDS: hydrALAZINE 25 MG TAB PO SCH (09:36)
[2019-02-23] MEDS: Nystatin Powder 15 GM BOT TOP SCH (09:36)
[2019-02-23] MEDS: Furosemide 80 MG TAB PO SCH ×2 (09:36→14:30)
[2019-02-23] MEDS: rOPINIRole HCl 0.5 MG TAB PO SCH (09:37)
[2019-02-23 09:38] LABS: Anion Gap 11 mmol/L (10-20); BUN (Urea Nitrogen) 50 mg/dL (9.8-20.1); Calc. Creatinine Clearance 79 mL/min (70-130); Calcium 9.1 mg/dL (7.8-10.44); Carbon Dioxide 28 mmol/L (23-31); Chloride 99 mmol/L (98-107); Estimated GFR-MDRD 46; Glucose 83 mg/dL (83-110); Potassium 4.1 mmol/L (3.5-5.1); Sodium 134 mmol/L (136-145)
[2019-02-23] MEDS: HumaLOG 300 UNITS/3 ML VIAL SC PRN ×2 (10:40→16:40)
[2019-02-23 12:16] VITALS: BP 162/79
[2019-02-23 14:57] VITALS: TEMP 97.9
[2019-02-24] MEDS ORDERED: metFORMIN 500 MG TAB PO SCH (09:00)
[2019-02-24] MEDS ORDERED: Lisinopril 20 MG TAB PO SCH (09:00)
[2019-02-24 13:10] LABS: Methylmalonic Acid 493 nmol/L (0-378)
== END 2019-02-23 17:56 | DRG 291 ==
LOC: ERS 05:32 → IMCU/EMU 06:40
PROVIDERS: ADMIT Internal Medicine; ATTEND Internal Medicine
DX: I13.0 Hypertensive heart and chronic kidney disease with heart failure and stage 1 through stage 4 chronic kidney disease, or unspecified chronic kidney disease (principal); I50.33 Acute on chronic diastolic (congestive) heart failure; J96.01 Acute respiratory failure with hypoxia; N17.9 Acute kidney failure, unspecified; J44.1 Chronic obstructive pulmonary disease with (acute) exacerbation; Z68.42 Body mass index [BMI] 45.0-49.9, adult; E11.22 Type 2 diabetes mellitus with diabetic chronic kidney disease; E78.5 Hyperlipidemia, unspecified; E89.0 Postprocedural hypothyroidism; E66.9 Obesity, unspecified; D63.1 Anemia in chronic kidney disease; N18.3 Chronic kidney disease, stage 3 (moderate); G47.33 Obstructive sleep apnea (adult) (pediatric); Z87.891 Personal history of nicotine dependence; Z79.82 Long term (current) use of aspirin; Z88.5 Allergy status to narcotic agent; Z79.899 Other long term (current) drug therapy; Z79.84 Long term (current) use of oral hypoglycemic drugs
CPT/HCPCS: 36415; 36416; 71045; 80048; 80053; 82607; 82747; 83036; 83090; 83735; 83880; 83921; 84443; 84484; 85007; 85014; 85025; 85027; 85046; 85060; 93005; 93798; 94640; 94660; 96374; 96375; J1650; J1825; J1940; J1956; J2920; J3010; J7620

== ENCOUNTER 2019-03-26 01:22 | Inpatient (IN) | payer MEDICARE, MEDICAID ==
[2019-03-26 01:40] LABS: Actual Bicarbonate (HCO3a) 29.5 mEq/L (22-28); Analyzer IN Cardio ER; Base Excess (BEa) 3.3 mEq/L (-2.0 to +3.0); CO2 Tension 53.2 mmHg (35.0-45.0); Calcium, Ionized 1.17 mmol/L (1.12-1.30); Carboxyhemoglobin (COHb) 0.1 gm% (0.0-3.0); Hemoglobin (Hb) 10.2 g/dL (12.0-16.0); Potassium - ABG Lab 4.57 mmol/L (3.70-5.30); pH, Arterial 7.36 (7.35-7.45)
[2019-03-26] MEDS ORDERED: methylPREDNISolone Sod Succ/PF 125 MG/2 ML VIAL ONE (01:53)
[2019-03-26] MEDS ORDERED: Magnesium 2 GM/50 ML BAG (IN WATER) ONE (01:53)
[2019-03-26 01:58] LABS: O2 Tension (PaO2) 58.4 mmHg (> 70.0); Puncture Site RRA
[2019-03-26 02:08] LABS: Hemoglobin 8.8 g/dL (12.0-16.0); Mean Corpuscular HGB CONC 31.4 g/dL (32.0-36.0); Mean Corpuscular Hemoglobin 26.6 pg (27.0-31.0); Mean Corpuscular Volume 84.8 fL (78.0-98.0); Mean Platelet Volume 10.8 fL (7.4-10.4); Platelet Count 205 thou/uL (130-400); RBC Distribution Width 12.5 % (11.5-14.5); Red Blood Cell (RBC) Count 3.31 mill/uL (4.20-5.40); White Blood Cell (WBC) Count 23.6 thou/uL (4.8-10.8)
[2019-03-26] MEDS ORDERED: Cefepime 2 GM VIAL ONE (02:21)
[2019-03-26] MEDS ORDERED: Azithromycin 500 MG VIAL ONE (02:21)
[2019-03-26 02:28] LABS: Bilirubin Negative (Negative); Blood, Urine Negative (Negative); Clarity CLOUDY (Clear); Glucose, Urine (Dipstick) Negative (Negative); Leukocyte Negative (Negative); Nitrite Negative (Negative); Protein, Urine (Dipstick) Negative (Neg-Trace); Specific Gravity, Urine 1.012 (1.002-1.036); Urobilinogen 0.2 mg/dL (0.2-1.0)
[2019-03-26 02:36] LABS: Band 9 % (5-11); Lymphocytes 3 % (21-51); MDiff Complete? YES; Monocytes 6 % (0-10); Neutrophil 82 % (42-75)
[2019-03-26 02:43] LABS: ALT (SGPT) 18 U/L (8-55); AST (SGOT) 16 U/L (5-34); Albumin 3.7 g/dL (3.4-4.8); Alkaline Phosphatase 87 U/L (40-150); BUN (Urea Nitrogen) 106 mg/dL (9.8-20.1); Bilirubin, Total 0.5 mg/dL (0.2-1.2); Calc. Creatinine Clearance 0 mL/min (70-130); Calcium 9.2 mg/dL (7.8-10.44); Chloride 97 mmol/L (98-107); Estimated GFR-MDRD 22; Globulin 3.3 g/dL (2.4-3.5); Glucose 156 mg/dL (83-110); Potassium 4.7 mmol/L (3.5-5.1); Sodium 136 mmol/L (136-145)
[2019-03-26 02:49] LABS: Anion Gap 18 mmol/L (10-20); Carbon Dioxide 26 mmol/L (23-31)
[2019-03-26 03:17] LABS: CKMB 1.3 ng/mL (0-6.6)
[2019-03-26] MEDS ORDERED: Acetaminophen 1,000 MG in Premix Bag 1 BAG IVPB SCH (03:30)
[2019-03-26] MEDS ORDERED: Furosemide 40 MG/4 ML VIAL ONE (03:33)
[2019-03-26 03:54] LABS: Actual Bicarbonate (HCO3a) 26.4 mEq/L (22-28); Analyzer IN Cardio ER; Base Excess (BEa) 0.8 mEq/L (-2.0 to +3.0); CO2 Tension 47.3 mmHg (35.0-45.0); Calcium, Ionized 1.12 mmol/L (1.12-1.30); Carboxyhemoglobin (COHb) 0.1 gm% (0.0-3.0); Hemoglobin (Hb) 9.4 g/dL (12.0-16.0); Potassium - ABG Lab 4.46 mmol/L (3.70-5.30); pH, Arterial 7.37 (7.35-7.45)
[2019-03-26 04:23] LABS: ALV-art Gradient 231.375 (0-20); Puncture Site LRA
--- NOTE | 2019-03-26 04:25 | PDOC.FPRHP ---
- History of Present Illness Chief Complaint: dyspnea History of Present Illness: 79 yo F with PMH of DM2, HFpEF, HTN, HLD, COPD, and dementia, presents from the care home for respiratory distress. She normally wears 2L BNC at the [place]. O2 sats were in the 70s%. She was started on non-rebreather then bipap which improved her work of breathing. In the ED, BP systolic low 100s, patient was not tachycardic. Febrile to 101.5 ( rectal). WBC 23.6. CT showed interstitial infiltrations and bilateral pleural effusions. She was given 500 ml bolus with azithromycin and cefepime for sepsis 2/2 pneumonia, and 1 dose Lasix 40 mg IV for CHF exacerbation. She was given solumedrol and 3 duonebs for COPD exacerbation. AB.36/53.2/58.4/3.3 - Allergies/Adverse Reactions Allergies Allergy/AdvReac Type Severity Reaction Status Date / Time codeine AdvReac vomiting Verified 01/17/19 15:16 COD Allergy Emesis Uncoded 01/17/19 15:16 - Home Medications Medication Instructions Recorded Confirmed Type Amlodipine [Norvasc] 10 mg PO BID 07/28/16 02/19/19 History Carvedilol 25 mg PO BID-WM 07/28/16 02/19/19 History rOPINIRole HCl [Ropinirole HCl] 0.5 mg PO BID 07/28/16 02/19/19 History Aspirin [Children's Aspirin] 81 mg PO DAILY 12/16/16 02/19/19 History Levothyroxine Sodium [Synthroid] 150 mcg PO QAM 12/16/16 02/19/19 History Pregabalin [Lyrica] 100 mg PO BID 12/16/16 02/19/19 History Atorvastatin Calcium [Lipitor] 10 mg PO HS 03/28/17 02/19/19 History Potassium Chloride 10 meq PO DAILY 03/28/17 02/19/19 History Escitalopram Oxalate 10 mg PO DAILY #90 tablet 05/04/17 02/19/19 Rx Nystatin [Nystop] 1 applic TOP BID 01/25/18 02/19/19 History Acetaminophen [Tylenol] 650 mg PO Q6HR PRN 01/17/19 02/19/19 History Albuterol Sulfate [Proair HFA] 2 puff INH Q4HR PRN 01/17/19 02/19/19 History Amitriptyline HCl 1 - 2 mg PO HS PRN 01/17/19 02/19/19 History Ibuprofen 600 mg PO Q6HR PRN 01/17/19 02/19/19 History Lisinopril 40 mg PO DAILY 01/17/19 02/19/19 History Melatonin 5 mg PO HS PRN 01/17/19 02/19/19 History guaiFENesin ER [Mucinex] 600 mg PO BID PRN 01/17/19 02/19/19 History hydrALAZINE [Apresoline] 25 mg PO BID 01/17/19 02/19/19 History metFORMIN HCl [Metformin HCl] 1,000 mg PO BID 01/17/19 02/19/19 History traMADol HCl [Tramadol HCl] 50 mg PO QID PRN 01/17/19 02/19/19 History Spironolactone [Aldactone] 12.5 mg PO QAM-WM #30 tab 01/22/19 02/19/19 Rx Furosemide [Lasix] 80 mg PO 0900,1400 #60 tab 02/23/19 Rx Insulin Glargine [Lantus Vial] 46 units SC HS vial 02/23/19 Rx - History From chart review. Patient unable to give history 2/2 mental status. PMHx: 1.DM, type 2 2. HFpEF 3. HTN 4. HLD 5. ?COPD PSHx: 1. back surgery 2. partial thyroidectomy 3. c section 4. r shoulder surgery FHx: 1. colon cancer 2. denies family hx of heart disease, heart attacks, strokes Social: 1. 20 pack year hx, quit 10 years ago 2. denies alcohol and drugs - Review of Systems ROS unobtainable: due to mental status - Vital signs BP: 101/65 HR: 70 RR: 28 Tmax: 101.5 rectal Pox: 97% on bipap Wt: 124 kg - Physical Exam Constitutional: other (patient in acute distress, in restraints as she was removing her bipap) HEENT: normocephalic and atraumatic, PERRLA, conjunctiva clear, MMM, oropharynx clear Neck: supple, trachea midline, no LAD Heart: RRR, normal S1/S2 (difficult exam due to habitus), no murmurs/rubs/ gallops, pulses present, other (2+ bilat pitting edema) Lungs: other (decreased air movement at bases, expiratory wheeze. Difficult exam due to body habitus.) Abdomen: soft, bowel sounds present Musculoskeletal: normal structure, normal tone Neurological: no focal deficit, CN II-XII intact Skin: no rash/lesions, other (cap refill > 2 seconds) Heme/Lymphatic: no unusual bruising or bleeding, no petechia Psychiatric: other (Unable to give ROS or answer questions appropriately.) FMR H&P: Results - Labs Result Diagrams: 03/26/19 01:47 03/26/19 01:47 Lab results: WBC 23.6 thou/uL (4.8-10.8) H 03/26/19 01:47 Hgb 8.8 g/dL (12.0-16.0) L 03/26/19 01:47 Hct 28.0 % (36.0-47.0) L 03/26/19 01:47 MCV 84.8 fL (78.0-98.0) 03/26/19 01:47 Plt Count 205 thou/uL (130-400) 03/26/19 01:47 Band Neuts % (Manual) 9 % (5-11) 03/26/19 01:47 ABG pH 7.37 (7.35-7.45) 03/26/19 03:52 ABG pCO2 47.3 mmHg (35.0-45.0) H 03/26/19 03:52 ABG pO2 66.0 mmHg (> 70.0) 03/26/19 03:52 Sodium 136 mmol/L (136-145) 03/26/19 01:47 Potassium 4.7 mmol/L (3.5-5.1) 03/26/19 01:47 Chloride 97 mmol/L (98-107) L 03/26/19 01:47 Carbon Dioxide 26 mmol/L (23-31) 03/26/19 01:47 BUN 106 mg/dL (9.8-20.1) H 03/26/19 01:47 Creatinine 2.19 mg/dL (0.6-1.1) H 03/26/19 01:47 Glucose 156 mg/dL (83-110) H 03/26/19 01:47 Lactic Acid 2.1 mmol/L (0.5-2.2) 03/26/19 01:47 Calcium 9.2 mg/dL (7.8-10.44) 03/26/19 01:47 Total Bilirubin 0.5 mg/dL (0.2-1.2) 03/26/19 01:47 AST 16 U/L (5-34) 03/26/19 01:47 ALT 18 U/L (8-55) 03/26/19 01:47 Alkaline Phosphatase 87 U/L (40-150) 03/26/19 01:47 CK-MB (CK-2) 1.3 ng/mL (0-6.6) 03/26/19 01:47 B-Natriuretic Peptide 1275.8 pg/mL (0-100) H 03/26/19 01:47 Serum Total Protein 7.0 g/dL (6.0-8.3) 03/26/19 01:47 Albumin 3.7 g/dL (3.4-4.8) 03/26/19 01:47 Urine Ketones Negative mg/dL (Negative) 03/26/19 02:20 Urine Blood Negative (Negative) 03/26/19 02:20 Urine Nitrite Negative (Negative) 03/26/19 02:20 Ur Leukocyte Esterase Negative (Negative) 03/26/19 02:20 FMR H&P: A/P - Problem List (1) (HFpEF) heart failure with preserved ejection fraction Current Visit: No Status: Acute Code(s): I50.30 - UNSPECIFIED DIASTOLIC ( CONGESTIVE) HEART FAILURE (2) Acute exacerbation of CHF (congestive heart failure) Current Visit: No Status: Acute Code(s): I50.9 - HEART FAILURE, UNSPECIFIED (3) Anemia Current Visit: No Status: Chronic Code(s): D64.9 - ANEMIA, UNSPECIFIED (4) CHF exacerbation Current Visit: No Status: Acute Code(s): I50.9 - HEART FAILURE, UNSPECIFIED (5) Obesity Current Visit: No Status: Chronic Code(s): E66.9 - OBESITY, UNSPECIFIED (6) DM2 (diabetes mellitus, type 2) Current Visit: No Status: Chronic Qualifiers: Diabetes mellitus complication status: with hyperglycemia (7) Dyslipidemia Current Visit: No Status: Chronic Code(s): E78.5 - HYPERLIPIDEMIA, UNSPECIFIED (8) HTN (hypertension) Current Visit: No Status: Chronic Code(s): I10 - ESSENTIAL (PRIMARY) HYPERTENSION Qualifiers: (9) Altered mental state Current Visit: No Status: Acute Code(s): R41.82 - ALTERED MENTAL STATUS, UNSPECIFIED (10) COPD exacerbation Current Visit: Yes Status: Acute Code(s): J44.1 - CHRONIC OBSTRUCTIVE PULMONARY DISEASE W (ACUTE) EXACERBATION (11) Sepsis Current Visit: Yes Status: Acute Code(s): A41.9 - SEPSIS, UNSPECIFIED ORGANISM (12) Pneumonia Current Visit: Yes Status: Acute Code(s): J18.9 - PNEUMONIA, UNSPECIFIED ORGANISM (13) Hypothyroidism Current Visit: No Status: Chronic Code(s): E03.9 - HYPOTHYROIDISM, UNSPECIFIED Qualifiers: - Plan Acute hypoxic hypercapneic respiratory failure 2/2 Acute on chronic CHF exacerbation and sepsis PNA -Initially O2 sats 70%, now on Bipap -Clinically fluid overloaded, BNP elevated. Given lasix 40 mg. -CXR showed cardiomegaly, large effusions, moderate edema -WBC elevated, Respirations elevated, F 101.5 Rectal -Continue cefepime and azithromycin -s/p 500 ml NS, now receiving second fluid bolus for low BP -ABG showed 7.36/53.2/38.4/3.3 -Admitted to ICU Sepsis 2/2 pneumonia -CXR shows pleural effusions, moderate edema. UA neg, culture pending. Blood culture pending. -Procal elevated -continue IV fluids, cefepime and azithromycin Acute on Chronic CHF Exacerbation -hx HFpEF -IV lasix 40 mg -BNP elevated to 1200, last measured at 287. +BLE pitting edema. -strict I/Os, daily weights RAFA -2.19 from 1.31 -continue to monitor COPD exacerbation -continue duonebs q4h KAE. q2h PRN -s/p solumedrol, continue solumedrol 125 mg daily Chronic Normocytic Anemia 2/2 B12 deficiency -BUN elevated, concern for possible GI bleed -Repeat H/H stable -homocysteine and MMA are elevated: B12 deficiency. Pt will need B12 supplementation. Elevated troponins -likely demand ischemia, continue to trend Hypothyroid -Repeat TSH, T4 Hx dementia -AOx1 on admission DM2 -SSI, accuchecks q4h PCP: Les Diet:NPO DVT ppx: Heparin, SCDs GI ppx: protonix Code status: full, family unable to be contacted at this time. FMR H&P: Upper Level - Pertinent history 79 yr old female with hx of anemia, HFpEF, who presents from care home due to hypoxia into the 70's, tachypnea. SHe was found to have temp to 101 in ER. She has a cough. She is non-compliant with her CHF medications or her fluid restrictions. ROS unobtainable due to altered mentation and bipap. - Pertinent findings Gen: patient is alert but not orient to place or time. She is in restraints but yet trying to flail her arms around to take the bipap mask off. Mouth: large tongue with moist mucous memebrane Heart: RRR, no M/R/G although very limited exam due to body habitus and bipap Lungs: airway movement noted in uppper airways, slight diminished in lower lobes and very difficult exam due to habitus. Abd: protuberant with normal acitve BS and non tender Ext: trace edema in BLE EKG: NSR no ST elevation CT: pulmonary edema and clarisa pleural effusions - Plan Date/Time: 03/26/19 0425 I, [Rocio Rojas], have evaluated this patient and agree with findings/plan as outlined by commercial intern resident. Pertinent changes/additions are listed here. acute hypoxic hypercapneic respiratory failure 2/2 Acute on chronic CHF exacerbation and sepsis PNA -currently on bipap, ABG improved, patient obtunded with hypotension -most recent echo in 01/2019 EF 60% however inadequate exam -repeat ECHO -CT chest with pulmonary edema and clarisa pleural effusions -ABG's wnl sepsis 2/2 PNA -leukocytosis, febrile -started on cefepime and azithromycin, cont -now hypotensive receiving 500 ml bolus in ER and 500 ml bolus now -levophed initiated, will need central line -briefly discussed case with Dr. Smith, does not recommend intubation. -have attempted to reach family and friend and cannot reach/#'s not working acute on chronic CHF exacerbation -lasix 40 mg IV in ER -hypotensive, now on levophed, difficult fluid balance acute kidney injury -monitor daily BMP Will need to continue reaching out to family for goals of care.
[2019-03-26 05:18] LABS: Actual Bicarbonate (HCO3a) 23.9 mEq/L (22-28); Base Excess (BEa) -1.1 mEq/L (-2.0 to +3.0); CO2 Tension 40.9 mmHg (35.0-45.0); Calcium, Ionized 1.16 mmol/L (1.12-1.30); Carboxyhemoglobin (COHb) 1.2 gm% (0.0-3.0); Hemoglobin (Hb) 9.2 g/dL (12.0-16.0); O2 Tension (PaO2) 65.4 mmHg (> 70.0); Potassium - ABG Lab 4.59 mmol/L (3.70-5.30); pH, Arterial 7.38 (7.35-7.45)
[2019-03-26 05:26] LABS: Puncture Site R RADIAL
[2019-03-26 05:27] LABS: ALV-art Gradient 204.325 (0-20)
[2019-03-26] MEDS ORDERED: Norepinephrine 8 MG in Dextrose 5% in Water 242 ML IVPB PRN (05:30)
[2019-03-26] MEDS ORDERED: Acetaminophen 325 MG TAB PO PRN (05:33)
[2019-03-26] MEDS ORDERED: Ondansetron PF 4 MG/2 ML Vial IVP PRN (05:33)
[2019-03-26] MEDS ORDERED: Acetaminophen 650 MG Suppository PR PRN (05:33)
[2019-03-26] MEDS ORDERED: Ondansetron ODT 4 MG TAB PO PRN (05:33)
[2019-03-26] MEDS ORDERED: Enoxaparin Sodium 30 MG/0.3 ML SYRINGE SC SCH (05:45)
[2019-03-26 06:13] LABS: Lactic Acid 2.2 mmol/L (0.5-2.2)
[2019-03-26 06:15] LABS: Troponin I 0.087 ng/mL (< 0.028)
--- NOTE | 2019-03-26 07:32 | PDOC.EVN ---
Event Note - Event Note Event Note: Date/Time: 03/26/19 9729 I personally evaluated the patient and discussed the management with Dr. Rojas I agree with the History, Examination, Assessment and Plan documented above with any addition or exceptions noted below- 79 yr old female with hx of anemia , HFpEF, DM, hypothyroidism, HTN who presents from [facility] due to hypoxia into the 70's, tachypnea. She was found to have temp to 101 in ER. She has a cough. She is non-compliant with her CHF medications or her fluid restrictions. Unable to obtain further history from patient due to disorientation/confusion. PMH/PSH/Meds/SH reviewed from hospital records and agree with resident's documentation. T99.5 P58 BP 94/48 P58 93% Exam repeated by me and agree with resident's findings. Patient initially confused and pulling on equipment in ER and initially in ICU but then became lethargic. Repeat ABG stable. Patient hypotensive- small fluid bolus given and started on levophed. Lungs- rales b/l and decreased BS in bases. CV- RRR, no murmur. Labs: WBC=23.6, H/H=8.8 /28, Rsr=380, Diff=82N/9B/3L, Bf=751, K=4.7, Cl=97, CO2=26, BUN/Pb=616/2.19, Rqip=224, JBK=1161.8. tropI=0.040 ->0.087, Procal 2.28, ABG=7.38/41/65/24, CXR- b/l pleural effusions, pulmonary edema. A/P: 1) Acute hypoxic respiratory failure secondary to pulmonary edema and possible pneumonia- Admit to ICU - Continue BiPap support. Pulmonary consulted. Monitor I/Os; may need additional lasix. 2) Sepsis secondary to pneumonia- Continue cefepime and zithromax. Blood and urine cultures pending. 3) Anemia- H/H 8.8/28 similar to last admission but has significantly elevated BUN at this admission- will monitor serial H/Hs. 4) HFpEF- Given lasix in ER with minimal urine output. Continue to monitor. May need additional lasix.
--- NOTE | 2019-03-26 07:48 | RAD ---
XR Chest 1 View Portable History: Shortness of breath Comparison: Radiograph February 20, 2019 Findings: Heart size is enlarged. Moderate effusions. Moderate edema. No pneumothorax. Right reverse total shoulder arthroplasty. No acute osseous abnormality. Dense calcifications of the transverse aorta. Impression: Findings of congestive heart failure with cardiomegaly, large effusions, and moderate charlie ma.
[2019-03-26 08:07] LABS: Hemoglobin 9.1 g/dL (12.0-16.0)
[2019-03-26] MEDS ORDERED: Dextrose 5% in Water 1,000 ML IV PRN (08:29)
[2019-03-26] MEDS ORDERED: Dextrose 50% Abboject 50 ML SYRINGE SLOW IVP PRN (08:29)
[2019-03-26 08:40] LABS: Anion Gap 20 mmol/L (10-20); BUN (Urea Nitrogen) 111 mg/dL (9.8-20.1); Calc. Creatinine Clearance 35 mL/min (70-130); Calcium 9.2 mg/dL (7.8-10.44); Carbon Dioxide 21 mmol/L (23-31); Chloride 98 mmol/L (98-107); Estimated GFR-MDRD 19; Glucose 150 mg/dL (83-110); Potassium 4.8 mmol/L (3.5-5.1); Sodium 134 mmol/L (136-145)
[2019-03-26 08:43] LABS: Troponin I 0.108 ng/mL (< 0.028)
[2019-03-26] MEDS ORDERED: Vancomycin HCl 750 MG in Sodium Chloride 0.9% 250 ML 250 ML IVPB SCH (09:00)
[2019-03-26] MEDS ORDERED: Vancomycin HCl 1 GM in Premix Bag 1 BAG IVPB SCH (09:00)
[2019-03-26] MEDS ORDERED: HOLD VANCOMYCIN FOR LEVEL >20 FS SCH (09:00)
[2019-03-26] MEDS ORDERED: Vancomycin HCl 1.5 GM in Sodium Chloride 0.9% 250 ML 300 ML IVPB SCH (09:00)
[2019-03-26] MEDS ORDERED: Vancomycin HCl 1.25 GM in Sodium Chloride 0.9% 250 ML 250 ML IVPB SCH (09:00)
[2019-03-26] MEDS ORDERED: Vancomycin Sliding Scale 1 EACH FS ONE (09:00)
[2019-03-26] MEDS: Enoxaparin Sodium 30 MG/0.3 ML SYRINGE SC SCH (09:02)
[2019-03-26] MEDS: Pantoprazole 40 MG VIAL IVP SCH (09:03)
[2019-03-26] MEDS: Sodium Chloride 0.9% (PF) 10 ML VIAL FS PRN (09:03)
[2019-03-26] MEDS: Famotidine/PF 20 mg/2ml Vial SLOW IVP SCH (09:03)
[2019-03-26 09:46] LABS: Free T4 (Free Thyroxine) 1.4 ng/dL (0.70-1.48); Thyroid Stimulating Hormone 0.8749 uIU/mL (0.35-4.94)
--- NOTE | 2019-03-26 10:06 | CT ---
PRELIMINARY REPORT/[facility]/EMERGENCY AFTER HOURS PROCEDURE: EXAM: CT Chest Without Contrast EXAM DATE/TIME: 03/26/2019 3:05 AM CLINICAL HISTORY: 79 years old, female; Signs and symptoms; Dyspnea; Patient HX: 79 y/o F presents to ED via EMS transp [facility]t [facility] for hypoxia, AMS. Nursing staff called EMS for transport when PT was found satting in upper 70s to lower 80s. PT, with h/o chf, is currently noncompliant with her me dications, unknown as to why. PT was initially placed on nrb, sats improving to low 90s. EMS gave duo neb and placed PT on cpap. Pt's sats remained in low 90s. PT with full code status. She denies cp at this time TECHNIQUE: Imaging protocol: Axial computed tomography images of the chest without intravenous contrast. Coronal reformatted images were created and reviewed. COMPARISON: No relevant prior studies available. FINDINGS: Lungs: There is moderate interstitial edema of the bilateral lungs. Pleural space: There are bilateral pleural effusions. Heart: Unremarkable. No cardiomegaly. No pericardial effusion. Aorta: Aortic calcifications are noted. Lymph nodes: Unremarkable. No enlarged lymph nodes. Bones/joints: There is RIGHT shoulder arthroplasty. Soft tissues: Unremarkable. IMPRESSION: Moderate pulmonary edema with small bilateral pleural effusions. Thank you for allowing us to participate in the care of your patient. Dictated and Authenticated by: Segundo Griffin MD 03/26/2019 3:48 AM Central Time ([place] & [place]) FINAL REPORT EMERGENCY AFTER HOURS NONCONTRAST CHEST CT: Date: 03/26/19 Time: 0306 hours IMPRESSION: There is cardiomegaly with bilateral pulmonary edema and bilateral pleural effusions. Report in agreement with preliminary report given on-call by [facility]. POS: [facility]
[2019-03-26] MEDS ORDERED: Furosemide 100 MG/10 ML VIAL SLOW IVP SCH (13:00)
[2019-03-26] MEDS ORDERED: Atropine Sulfate 1 mg/10 ml Syringe ONE (13:14)
--- NOTE | 2019-03-26 14:41 | CON ---
DATE OF CONSULTATION: 03/26/2019 REASON FOR CONSULTATION: Acute respiratory failure. Above encompassed 35 minutes of critical care time and below encompassed 30 minutes of critical care time. HISTORY OF PRESENT ILLNESS: A 79-year-old female who is a poor historian. She presented to the emergency room last night with shortness of breath, for which she was placed on BiPAP. She was initially felt to be septic as she was febrile up to 101.5. However, she was also found to have a profoundly elevated BNP suggesting that she could also be in heart failure. For that reason, she was placed on BiPAP, for which she remained until this morning, where we are currently trying to take it off. PAST MEDICAL HISTORY: 1. Diabetes mellitus type 2. 2. Diastolic cardiac dysfunction. 3. Hypertension. 4. Hyperlipidemia. 5. Question of COPD. PAST SURGICAL HISTORY: 1. Back surgery. 2. Partial thyroidectomy. 3. . 4. Shoulder surgery. FAMILY MEDICAL HISTORY: Remarkable for colon cancer. SOCIAL HISTORY: Twenty pack-year history of smoking, quit 10 years ago. Does not consume alcohol or illicit drugs. REVIEW OF SYSTEMS: Unobtainable. PHYSICAL EXAMINATION: VITAL SIGNS: Temperature 99.5, pulse 58, blood pressure 94/48, currently on a Levophed drip 14 mcg/minute. HEENT: Unremarkable. NECK: No adenopathy. No JVD. No thyromegaly. LUNGS: She has diminished breath sounds in the bases. CARDIAC: S1 and S2. Regular. ABDOMEN: Obese, soft, and nontender. EXTREMITIES: No clubbing, cyanosis, or edema. LABORATORY DATA: Sodium 134, potassium 4.8, chloride 98, CO2 of 21, BUN 111, creatinine 2.5, and glucose 150. White blood cell count 23.6, hemoglobin 9.1, hematocrit 28.5, and platelet count 205 with 80% neutrophils, 9% bands. Urinalysis did not show any leukocyte esterase or blood. ABG; pH of 7.38, pCO2 of 40, and pO2 of 65 that was on BiPAP 13/5. X-ray shows cardiomegaly, bilateral effusions, bilateral infiltrative changes. ASSESSMENT: 1. Sepsis, most likely from pneumonia. 2. Concurrent diastolic heart failure. 3. Acute on chronic renal insufficiency. PLAN: 1. Try off BiPAP. 2. Continue IV antibiotics. 3. Wean off Levophed aggressively. 4. Consider Cardiology consultation, Nephrology consultation. 5. I agree with empiric steroids. 6. We will follow with you. Job ID: [id number]
--- NOTE | 2019-03-26 15:57 | PRG ---
DATE OF SERVICE: 03/26/2019 ADDENDUM: This is an addendum to the note of Dr. Nolberto Oh. Ms. Suarez is requiring intermittent BiPAP. She is currently on a nasal cannula and maintaining an O2 saturation of 93% to 95%. Her lungs sound clear, although breath sounds are diminished. She initially presented with acute hypoxic hypercapnic respiratory failure secondary to a CHF exacerbation and possible pneumonia/COPD. In the event clinically, she has improved and will likely be transferred to the floor if can be maintained off BiPAP. Job ID: [id number]
[2019-03-26] MEDS ORDERED: Lorazepam 2 MG/ML VIAL ONE (17:20)
[2019-03-26] MEDS: Lorazepam 2 MG/ML VIAL SLOW IVP PRN ×2 (17:24→22:19)
[2019-03-26] MEDS: HumaLOG 300 UNITS/3 ML VIAL SC PRN (20:22)
--- NOTE | 2019-03-26 21:20 | CON ---
DATE OF CONSULTATION: 03/26/2019 CONSULTING PHYSICIAN: Fatuma Walker MD REASON FOR CONSULT: Acute kidney injury. REASON FOR ADMISSION: Shortness of breath. HISTORY OF PRESENT ILLNESS: A 79-year-old female with history of CHF, type 2 diabetes, hypertension, hyperlipidemia, COPD, dementia, came to the hospital with shortness of breath. Initially thought to be sepsis and also CHF exacerbation, was given 40 of Lasix with no improvement in urine output. She was hypotensive also and also on Levophed. She is on BiPAP and very restless. She is not able to give a good history and not make urine. PAST MEDICAL HISTORY: Positive for type 2 diabetes, CHF, hypertension, hyperlipidemia, COPD. PAST SURGICAL HISTORY: Back surgery, thyroidectomy, , shoulder surgery. HOME MEDICATIONS: 1. Albuterol. 2. Ibuprofen. 3. Lisinopril. 4. Melatonin. 5. Hydralazine. 6. Metformin. 7. Tramadol. 8. Spironolactone. 9. Lasix. ALLERGIES: TO CODEINE. SOCIAL HISTORY: No smoking, alcohol, or illicit drugs. FAMILY HISTORY: No history of kidney disease. REVIEW OF SYSTEMS: Could not be obtained as the patient is restless. PHYSICAL EXAMINATION: GENERAL: This is an obese female, in [id number] distress. VITAL SIGNS: Temperature 99.1, pulse 72, respirations 16, blood pressure 103/52. HEENT: Atraumatic, normocephalic, on BiPAP. CV: S1, S2 heard. RESPIRATORY: Clear. GI: Soft. MUSCULOSKELETAL: 1+ edema. DERMATOLOGIC: No skin rash. NEUROLOGIC: confused. LABORATORY DATA: Hemoglobin is 8.8, potassium 4.8, BUN is 111, creatinine is 2.5. ASSESSMENT AND PLAN: 1. Acute kidney injury on chronic kidney disease, stage 3 with oligoanuria. Plan is to start Lasix and continue supportive care. If no significant urine output, might need renal replacement in the near future. 2. Anemia of chronic disease. 3. Acute hypoxic and hypercapnic respiratory failure. 4. Hyponatremia. 5. Edema. 6. History of congestive heart failure. 7. Cardiorenal syndrome. 8. History of hypertension. 9. . Prognosis guarded. No acute indication for dialysis, but if no significant improvement in urine output might need renal replacement therapy. We will follow. Thank you for the consult. Job ID: [id number]
[2019-03-27] MEDS: HumaLOG 300 UNITS/3 ML VIAL SC PRN ×5 (00:12→20:44)
[2019-03-27] MEDS: Cefepime 1 GM in Sodium Chloride 0.9% 100 ML IVPB SCH (02:02)
[2019-03-27] MEDS: Lorazepam 2 MG/ML VIAL SLOW IVP PRN ×3 (02:24→22:01)
[2019-03-27] MEDS ORDERED: Azithromycin 500 MG in Sodium Chloride 0.9% 250 ML 250 ML IVPB SCH (03:00)
[2019-03-27 04:39] LABS: #Lymphocytes 1.1 thou/uL (1.20-3.40); #Neutrophils 14.8 thou/uL (1.40-6.50); %Lymphocytes 6.3 % (21.0-51.0); %Monocytes 5.9 % (0.0-10.0); %Neutrophils 87.7 % (42.0-75.0); Hemoglobin 8.7 g/dL (12.0-16.0); Mean Corpuscular HGB CONC 31.3 g/dL (32.0-36.0); Mean Corpuscular Hemoglobin 26.4 pg (27.0-31.0); Mean Corpuscular Volume 84.2 fL (78.0-98.0); Mean Platelet Volume 11.2 fL (7.4-10.4); Platelet Count 178 thou/uL (130-400); RBC Distribution Width 12.7 % (11.5-14.5); Red Blood Cell (RBC) Count 3.29 mill/uL (4.20-5.40); White Blood Cell (WBC) Count 16.9 thou/uL (4.8-10.8)
[2019-03-27 05:00] LABS: Anion Gap 17 mmol/L (10-20); BUN (Urea Nitrogen) 122 mg/dL (9.8-20.1); Calc. Creatinine Clearance 25 mL/min (70-130); Calcium 9.1 mg/dL (7.8-10.44); Carbon Dioxide 24 mmol/L (23-31); Chloride 99 mmol/L (98-107); Estimated GFR-MDRD 13; Glucose 219 mg/dL (83-110); Potassium 5.2 mmol/L (3.5-5.1); Sodium 135 mmol/L (136-145)
--- NOTE | 2019-03-27 06:02 | PDOC.FM ---
- Subjective Subjective: 79 yo female seen at bedside this AM. Patient is awake. She is A&O x1. She can' t recall that she is in a hospital in [place], [place] or the correct year. She reports pain to her left knee. Per nursing staff, patient has been agitated due to the BIPAP mask and would like it removed; however, when it is removed she quickly de-saturates. - Objective Vital Signs & Weight: Vital Signs (12 hours) Temp Pulse Pulse Ox 03/27/19 04:01 69 93 L 03/27/19 03:00 99.8 F H 03/26/19 23:00 99.9 F H 03/26/19 22:56 73 03/26/19 20:00 92 L 03/26/19 19:03 76 Weight Weight 119 kg Most Recent Monitor Data Heart Rate from ECG 76 NIBP 114/67 NIBP BP-Mean 82 Respiration from ECG 28 SpO2 94 I&O: 03/25/19 03/26/19 03/27/19 06:59 06:59 06:59 Intake Total 527 1304 Output Total 100 132 Balance 427 1172 Result Diagrams: 03/27/19 04:05 03/27/19 04:05 Phys Exam - Physical Examination HEENT: PERRLA BIPAP in place Respiratory: no wheezing, clear to auscultation bilateral Cardiovascular: RRR, no significant murmur Gastrointestinal: soft, non-tender, no distention, positive bowel sounds Musculoskeletal: pulses present, edema present Neurological: moves all 4 limbs with upper arms in restraints Skin: no rash Dx/Plan (1) Acute exacerbation of CHF (congestive heart failure) Code(s): I50.9 - HEART FAILURE, UNSPECIFIED Status: Acute (2) Blood bacterial culture positive Code(s): R78.81 - BACTEREMIA Status: Acute (3) (HFpEF) heart failure with preserved ejection fraction Code(s): I50.30 - UNSPECIFIED DIASTOLIC (CONGESTIVE) HEART FAILURE Status: Acute (4) Altered mental state Code(s): R41.82 - ALTERED MENTAL STATUS, UNSPECIFIED Status: Acute (5) Anemia Code(s): D64.9 - ANEMIA, UNSPECIFIED Status: Chronic (6) DM2 (diabetes mellitus, type 2) Status: Chronic Qualifiers: Diabetes mellitus complication status: with hyperglycemia (7) RAFA (acute kidney injury) Code(s): N17.9 - ACUTE KIDNEY FAILURE, UNSPECIFIED Status: Acute - Plan 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) - Baseline non-compliance - Will need further input from PCP and family members - Will hold on sedation due to breathing status Resp (Pulmonary Edema, CHF exacerbation) - BIPAP as needed - See renal CV (CHF exacerbation) - Pressors: Required Levophed initially, but titrated down - Episode of bradycardia and unresponsiveness 03/26 GI - /Renal (ARF) - Nephrology consulted, appreciate recs - Worsened Creatinine 3.41 this AM - Continue lasix and if no improvement will need renal replacement therapy per Nephro - Very little urine output Infection (Staph positive in blood) - atelectasis noted on CXR - Bcx x2 show NGTD at 48hrs - Continue antibiotics and will narrow spectrum when sensitivities known Heme (Leukocytosis) - Trended down to 16.9 - Continue to monitor Endo (see renal) - Poorly controlled DM - SSI for now, once medication reconciliation completed will restart regimen Code status: full, this has been discussed with family at length PPx: Famotidine, Lovenox Disposition: Guarded, will continue current plan of care and coordinate specialty teams Addendum - Attending - Attending Attestation Date/Time: 03/27/19 5517 I personally evaluated the patient and discussed the management with Dr. Oh. I agree with the History, Examination, Assessment and Plan documented above with any addition or exceptions noted below. Patient with SOB, denies cp, n/v, rash. On exam no distress, tachypneic, able to get to side of bed with PT. Basilar crackles. Severe sepsis presumably 2/2 CAP with elevated TnI due to demand, acute on chronic HFrEF -TTE -vancomycin and empiric GN coverage -repeat BC RAFA on CKD with hyperK -likely 2/2 above -dialysis pending family discussion Patient with poor overall prognosis, need to clarify code status as the patient has baseline dementia.
[2019-03-27] MEDS ORDERED: Non-Formulary Item 1 EACH (Melatonin [Melatonin] 5 MG) PO PRN (07:29)
[2019-03-27] MEDS ORDERED: Amitriptyline HCl 25 MG TAB PO PRN (07:29)
[2019-03-27] MEDS ORDERED: PROVENTIL INHALER 6.7 G (200 INHALATIONS) INH PRN (07:29)
[2019-03-27] MEDS ORDERED: traMADol HCl 50 MG TAB PO PRN (07:29)
[2019-03-27] MEDS ORDERED: guaiFENesin ER 600 MG TAB PO PRN (07:29)
[2019-03-27 08:20] LABS: Vancomycin, Trough 22.4 ug/mL
[2019-03-27] MEDS: Enoxaparin Sodium 30 MG/0.3 ML SYRINGE SC SCH (08:52)
[2019-03-27] MEDS: methylPREDNISolone Sod Succ/PF 125 MG/2 ML VIAL IVP SCH (08:53)
[2019-03-27] MEDS: Sodium Chloride 0.9% (PF) 10 ML VIAL FS PRN (08:53)
[2019-03-27] MEDS: Pantoprazole 40 MG VIAL IVP SCH (08:53)
[2019-03-27] MEDS ORDERED: Nystatin Powder 15 GM BOT TOP SCH (09:00)
[2019-03-27] MEDS ORDERED: Non-Formulary Item 1 EACH (Pregabalin [Lyrica] 100 MG) PO SCH (09:00)
[2019-03-27] MEDS: Nystatin Powder 15 GM BOT TOP SCH ×2 (09:01→22:01)
[2019-03-27] MEDS: Famotidine/PF 20 mg/2ml Vial SLOW IVP SCH (09:17)
--- NOTE | 2019-03-27 09:34 | PRG ---
DATE OF SERVICE: 03/27/2019 Thirty-five minutes of critical care time. SUBJECTIVE: The patient remains on noninvasive ventilation. She is calm after receiving a couple doses of Ativan last night. OBJECTIVE: VITAL SIGNS: Temperature is 99.8, pulse 64, blood pressure 98/56, O2 saturation 95%. She is currently on BiPAP at 16/5 with an FiO2 of 29%. HEENT: Unremarkable. NECK: No JVD. LUNGS: Fairly clear anteriorly. CARDIAC: S1, S2. Regular. ABDOMEN: Soft, obese, nontender. EXTREMITIES: Edematous. LABORATORY DATA: White blood cell count 16.9, hematocrit 27.7, and platelet count 178. Sodium 135, potassium 5.2, chloride 99, CO2 24, BUN 122, creatinine 3.4, glucose 219. Cultures are growing out Staph aureus. Sensitivities are pending. ASSESSMENT: 1. Acute hypoxic respiratory failure, requiring mechanical ventilation. 2. Bilateral pneumonia, likely Staphylococcus aureus. 3. Concurrent diastolic heart failure. 4. Cardiorenal syndrome. 5. Acute on chronic renal failure. PLAN: 1. The patient likely will need dialysis given diminished urine output. 2. Continue BiPAP for the time being. We will try to hold sedation. 3. Continue antibiotics. Adjust for renal function. Job ID: [id number]
[2019-03-27] MEDS: Pregabalin 50 MG CAP PO SCH ×2 (10:12→22:02)
[2019-03-27] MEDS: Escitalopram Oxalate 10 mg Tablet PO SCH (10:12)
[2019-03-27] MEDS: Levothyroxine 150 MCG TAB PO SCH (10:15)
[2019-03-27] MEDS: Aspirin Chewable 81 MG TAB PO SCH (10:16)
[2019-03-27] MEDS: rOPINIRole HCl 0.5 MG TAB PO SCH ×2 (10:17→22:02)
[2019-03-27] MEDS ORDERED: Melatonin 3 MG TAB PO PRN (11:58)
[2019-03-27] MEDS ORDERED: Heparin 10,000 UNITS/ 10 ML VIAL ONE (12:00)
[2019-03-27] MEDS ORDERED: Vancomycin HCl 1.25 GM in Sodium Chloride 0.9% 250 ML 250 ML IVPB SCH (15:00)
[2019-03-27] MEDS ORDERED: Vancomycin HCl 1 GM in Premix Bag 1 BAG IVPB SCH ×2 (15:00→18:00)
[2019-03-27] MEDS ORDERED: HOLD VANCOMYCIN FOR LEVEL >20 FS SCH (15:00)
[2019-03-27] MEDS ORDERED: Vancomycin HCl 1.5 GM in Sodium Chloride 0.9% 250 ML 300 ML IVPB SCH (15:00)
[2019-03-27] MEDS ORDERED: Vancomycin Sliding Scale 1 EACH FS ONE (15:00)
[2019-03-27] MEDS ORDERED: Cefepime 0.5 GM, Admixture Fee 1 EACH in Sodium Chloride 0.9% 100 ML IVPB SCH (15:00)
--- NOTE | 2019-03-27 15:26 | PRG ---
DATE OF SERVICE: 03/27/2019 SUBJECTIVE: Patient was seen and examined at bedside and overnight events noted. Patient denies any shortness of breath or chest pain or palpitation. No history of nausea or vomiting or diarrhea or fever or chills or cramps. Patient is on BiPAP and confused. OBJECTIVE: GENERAL: This is a morbidly obese female, seen in ICU, and on BiPAP. VITAL SIGNS: Temperature 98.2. Heart rate 63. Respiratory rate . Blood pressure 111/65. HEENT: Atraumatic, normocephalic. Oral mucosa is moist. On BiPAP. NECK: Supple. CARDIOVASCULAR: S1, S2 heard. Rate and rhythm regular. RESPIRATORY: Clear to auscultation. GASTROINTESTINAL: Abdomen is soft. Obese. MUSCULOSKELETAL: No tenderness. 1+ edema. DERMATOLOGIC: No skin rash. NEUROLOGIC: Confused. No focal neurologic deficits. Moving all the extremities. PSYCHIATRIC: Mood and affect normal. LABORATORY DATA: Creatinine 5.2, BUN is 122, potassium is 5.9. ASSESSMENT: 1. Acute kidney injury on chronic kidney stage 3 with worsening creatinine and no urine output. 2. Oliguria. 3. Hyponatremia. 4. Hyperkalemia getting worse. 5. Azotemia with possible uremia. 6. Anemia. 7. Leukocytosis. 8. Overall prognosis guarded. PLAN: Plan is to start on dialysis. The patient is not making any urine. We will continue supportive care and plan to start on dialysis. Family is not reachable and we will start emergent dialysis and continue contacting the family and . We will follow. Job ID: [id number]
[2019-03-27 15:35] LABS: HBSAB Concentration 0.78 mIU/mL; HBSAg Index 0.27 S/CO (0-0.99); Hep B Core Total Ab Non-Reactive (NonReactive); Hep B Core Total Index 0.06 S/CO (0-0.79); Hep B Surf AB Non-Reactive (NonReactive); Hep B Surf Ag Non-Reactive S/CO (NonReactive); Hep C IgG Ab Non-Reactive (NonReactive); Hep C Index 0.63 S/CO (0-0.79)
[2019-03-27] MEDS ORDERED: Vancomycin HCl 500 MG in Sodium Chloride 0.9% 100 ML IVPB SCH (18:00)
[2019-03-27] MEDS: Heparin 5,000 UNITS/ML VIAL SC SCH (20:03)
[2019-03-27] MEDS: Insulin Glargine 10 UNITS in Pre-Filled Syringe SC SCH (20:50)
[2019-03-27] MEDS ORDERED: Insulin Glargine 46 UNITS in Pre-Filled Syringe 1 EACH SC SCH (21:00)
[2019-03-27] MEDS: Atorvastatin Calcium 10 MG TAB PO SCH (22:02)
[2019-03-28] MEDS: HumaLOG 300 UNITS/3 ML VIAL SC PRN ×5 (01:27→21:33)
[2019-03-28] MEDS: Cefepime 1 GM in Sodium Chloride 0.9% 100 ML IVPB SCH (02:29)
[2019-03-28] MEDS: Lorazepam 2 MG/ML VIAL SLOW IVP PRN ×4 (03:26→19:28)
[2019-03-28 04:41] LABS: #Monocytes 0.7 thou/uL (0.11-0.59); #Neutrophils 12.9 thou/uL (1.40-6.50); %Eosinophils 0.1 % (0.0-10.0); %Lymphocytes 6.6 % (21.0-51.0); %Monocytes 4.9 % (0.0-10.0); %Neutrophils 88.4 % (42.0-75.0); Hemoglobin 8.4 g/dL (12.0-16.0); Mean Corpuscular HGB CONC 31.7 g/dL (32.0-36.0); Mean Corpuscular Hemoglobin 26.8 pg (27.0-31.0); Mean Corpuscular Volume 84.7 fL (78.0-98.0); Mean Platelet Volume 11.1 fL (7.4-10.4); Platelet Count 154 thou/uL (130-400); RBC Distribution Width 12.7 % (11.5-14.5); Red Blood Cell (RBC) Count 3.12 mill/uL (4.20-5.40); White Blood Cell (WBC) Count 14.6 thou/uL (4.8-10.8)
[2019-03-28 04:58] LABS: Anion Gap 18 mmol/L (10-20); BUN (Urea Nitrogen) 101 mg/dL (9.8-20.1); Calc. Creatinine Clearance 25 mL/min (70-130); Calcium 8.9 mg/dL (7.8-10.44); Carbon Dioxide 25 mmol/L (23-31); Chloride 98 mmol/L (98-107); Estimated GFR-MDRD 12; Glucose 246 mg/dL (83-110); Potassium 4.9 mmol/L (3.5-5.1); Sodium 136 mmol/L (136-145)
--- NOTE | 2019-03-28 06:07 | PDOC.FM ---
- Subjective Subjective: 79 yo female seen at bedside this AM. Patient has BIPAP in place. Patient does not like to wear the mask and would like it to be removed. Patient denies any complaints of pain. Per nursing staff, she underwent dialysis yesterday where 1L was removed. She has since had improved O2 saturations to the high 90s on BIPAP. At times she becomes restless due to the BIPAP mask, but no other acute events overnight. - Objective Vital Signs & Weight: Vital Signs (12 hours) Temp Pulse Resp Pulse Ox 03/28/19 04:00 98.1 F 03/28/19 02:17 79 03/28/19 02:16 77 13 92 L 03/27/19 22:45 84 03/27/19 22:44 86 16 92 L 03/27/19 20:30 92 L 03/27/19 20:00 97.6 F 03/27/19 19:19 83 03/27/19 19:18 85 20 92 L Weight Weight 113.6 kg Most Recent Monitor Data Heart Rate from ECG 82 NIBP 119/59 NIBP BP-Mean 79 Respiration from ECG 17 SpO2 97 I&O: 03/26/19 03/27/19 03/28/19 06:59 06:59 06:59 Intake Total 527 1431 579 Output Total 100 157 213 Balance 427 1274 366 Result Diagrams: 03/28/19 04:15 03/28/19 04:15 Phys Exam - Physical Examination Constitutional: NAD BIPAP in place Respiratory: no wheezing bilateral basilar crackles Cardiovascular: RRR, no significant murmur Gastrointestinal: soft, non-tender, no distention, positive bowel sounds Musculoskeletal: pulses present 1+ pitting edema Neurological: non-focal, moves all 4 limbs Deviation from normal: Hospital, 2019, name Skin: no rash Dx/Plan (1) Acute exacerbation of CHF (congestive heart failure) Code(s): I50.9 - HEART FAILURE, UNSPECIFIED Status: Acute (2) Blood bacterial culture positive Code(s): R78.81 - BACTEREMIA Status: Acute (3) (HFpEF) heart failure with preserved ejection fraction Code(s): I50.30 - UNSPECIFIED DIASTOLIC (CONGESTIVE) HEART FAILURE Status: Acute (4) Altered mental state Code(s): R41.82 - ALTERED MENTAL STATUS, UNSPECIFIED Status: Acute (5) Anemia Code(s): D64.9 - ANEMIA, UNSPECIFIED Status: Chronic (6) DM2 (diabetes mellitus, type 2) Status: Chronic Qualifiers: Diabetes mellitus complication status: with hyperglycemia (7) RAFA (acute kidney injury) Code(s): N17.9 - ACUTE KIDNEY FAILURE, UNSPECIFIED Status: Acute - Plan 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) - Baseline non-compliance - Will need further input from PCP and family members - Multiple attempts to contact from primary team, nursing staff, case management , and specialty teams - Will hold on sedation due to breathing status Resp (Pulmonary Edema, CHF exacerbation) - BIPAP as needed - See renal CV (CHF exacerbation) - Pressors: Required Levophed initially, but d/c - Episode of bradycardia and unresponsiveness 03/26 - No further episodes - ECHO pending GI - advance diet as tolerated - Speech Eval pending /Renal (ARF) - Nephrology consulted, appreciate recs - Worsened Creatinine 3.56 this AM - Initiated dialysis 03/27 and removed 1L - Very little urine output Infection (MRSA positive in blood) - atelectasis noted on CXR - MRSA on 11/18 blood cultures - Repeat cultures and ECHO pending - Sensitive to Vancomycin with trough this AM - Resistent to cefepime and so that is d/c - Procal pending this AM Heme (Leukocytosis) - Trended down to 14.6 - Continue to monitor Endo (see renal) - Poorly controlled DM - SSI for now - Initiated 10u basal insulin due to NPO status and ARF Code status: full, this has been discussed with family at length PPx: Famotidine, Lovenox Disposition: Guarded, will continue current plan of care and coordinate specialty teams Addendum - Attending - Attending Attestation Date/Time: 03/28/19 1029 I personally evaluated the patient and discussed the management with Dr. Pascal. I agree with the History, Examination, Assessment and Plan documented above with any addition or exceptions noted below. Patient remains Ox1, but in no distress on BiPAP. Her lungs are improved but still with crackles. Her respiratory failure should improve with continued dialysis. Monitor closely. Continue vancomycin, pharm to dose, and await TTE. Guarded prognosis overall.
--- NOTE | 2019-03-28 07:42 | RAD ---
PORTABLE SEMIUPRIGHT FRONTAL CHEST RADIOGRAPH: Date: 03/28/2019 COMPARISON: 03/26/2019. HISTORY: Pneumonia. FINDINGS: The cardiac silhouette is enlarged. There is pulmonary vascular congestion. There is perih ilar interstitial prominence suggesting interstitial edema, improved when compared to the prior examination. There are small bilateral pleural effusions, improved. Aeration in both lung bases is im proved. There is atherosclerotic calcification of the aortic arch. IMPRESSION: Findings suggesting interstitial edema with pulmonary vascular congestion and small bilat eral pleural effusions. Findings are improved when compared to the prior exam. Continued follow-up to resolution advised. Transcribed Date/Time: 03/28/2019 7:45 AM
--- NOTE | 2019-03-28 08:34 | PRG ---
DATE OF SERVICE: 03/28/2019 Thirty-five minutes of critical care time. SUBJECTIVE: The patient remains on noninvasive ventilation. She did get dialysis yesterday. She is starting to talk to . OBJECTIVE: VITAL SIGNS: Temperature is 98.1, pulse 86, blood pressure 107/76, O2 saturation 96%. Total intake for 24 hours is 579, output 1000 through dialysis. HEENT: Unremarkable. NECK: No JVD. LUNGS: Inspiratory crackles bilaterally, but softer than yesterday. CARDIAC: S1, S2. Regular. ABDOMEN: Soft, obese, nontender. EXTREMITIES: Edematous. LABORATORY DATA: White blood cell count 14.6, hematocrit 26.4, and platelet count 154. Sodium 136, potassium 4.9, chloride 98, CO2 25, BUN 101, creatinine 3.5, glucose 246. Cultures are growing out MRSA from the blood. ASSESSMENT: 1. Methicillin-resistant Staphylococcus aureus sepsis. 2. Acute renal failure. 3. Acute hypoxic respiratory failure, requiring noninvasive mechanical ventilation. 4. Diastolic heart failure. 5. Bilateral pneumonia. PLAN: 1. has improved with dialysis indicating the most of it what we are seeing is probably excess volume. 2. We can go ahead and stop the cefepime. 3. Likely will need continued dialysis and ultrafiltration. Wean BiPAP as tolerated. Job ID: [id number]
[2019-03-28 08:36] LABS: Vancomycin, Random 22.1 ug/mL (See Comment)
--- NOTE | 2019-03-28 08:58 | OP ---
DATE OF PROCEDURE: 03/27/2019 PREOPERATIVE DIAGNOSES: Morbid obesity, chronic kidney disease, acute renal failure, end-stage renal disease, noncompliance, morbid obesity, diabetes, chcf dementia, unable to confine family for consents and a full code patient. POSTOPERATIVE DIAGNOSES: Morbid obesity, chronic kidney disease, acute renal failure, end-stage renal disease, noncompliance, morbid obesity, diabetes, chcf dementia, unable to confine family for consents and a full code patient. PROCEDURE PERFORMED: Right femoral vein Trialysis catheter. ANESTHESIA: 1% Xylocaine. DESCRIPTION OF PROCEDURE: The patient at bedside. The right groin was prepared with ChloraPrep, while the nurse held her pannus above the weight gain access. Local anesthetic was infiltrated in the skin and subcutaneous tissue. Trocar catheter was cannulated in the femoral vein and Seldinger technique used to place a smaller and medium-sized dilators over the J-wire into the femoral vein and then the Trialysis catheter, removed the J-wire, securing the catheter with 3-0 nylon suture. Each port aspirated blood, flushed with heparinized saline solution. The patient tolerated the procedure well. Job ID: [id number]
[2019-03-28] MEDS ORDERED: Heparin 10,000 UNITS/ 10 ML VIAL ONE (12:00)
[2019-03-28] MEDS ORDERED: Albumin 25% 25 GM/100 ML BOT IVPB PRN (12:17)
--- NOTE | 2019-03-28 12:30 | PRG ---
DATE OF SERVICE: 03/28/2019 SUBJECTIVE: The patient was seen and examined at ICU. Remains on BiPAP and not responding. OBJECTIVE: GENERAL: This is an obese female, on BiPAP. VITAL SIGNS: Temperature 97.8, pulse 76, respiratory rate 18, and blood pressure 107/53. HEENT: On BiPAP. CV: S1 and S2 heard. RESPIRATORY: Clear anteriorly. GI: Abdomen is soft. MUSCULOSKELETAL: 1+ edema. DERMATOLOGIC: No skin rash. NEUROLOGIC: Slightly confused. LABORATORY DATA: Potassium is 4.9, BUN is 101, and creatinine is 3.5. ASSESSMENT AND PLAN: 1. Acute kidney injury on chronic kidney disease, stage 3, dialysis dependent. Might need daily dialysis. 2. Edema with fluid overload, but we will have ultrafiltration, but hypotension is limiting the ultrafiltration. We will continue to monitor. We will try to use albumin with dialysis. 3. Hyponatremia. Limit fluid intake. 4. Hyperkalemia, better. 5. Anemia. 6. Leukocytosis. Long-term prognosis is poor. We will continue ultrafiltration as tolerated. Continue dialysis if tolerated. Job ID: [id number]
[2019-03-28] MEDS: Pantoprazole 40 MG VIAL IVP SCH (14:08)
[2019-03-28] MEDS: methylPREDNISolone Sod Succ/PF 125 MG/2 ML VIAL IVP SCH (14:08)
[2019-03-28] MEDS: Heparin 5,000 UNITS/ML VIAL SC SCH ×2 (14:09→21:32)
[2019-03-28] MEDS: Escitalopram Oxalate 10 mg Tablet PO SCH (14:10)
[2019-03-28] MEDS: Aspirin Chewable 81 MG TAB PO SCH (14:10)
[2019-03-28] MEDS: Levothyroxine 150 MCG TAB PO SCH (14:11)
[2019-03-28] MEDS: Pregabalin 50 MG CAP PO SCH ×2 (14:12→21:45)
[2019-03-28] MEDS: Nystatin Powder 15 GM BOT TOP SCH ×2 (14:14→21:49)
[2019-03-28] MEDS: rOPINIRole HCl 0.5 MG TAB PO SCH ×2 (15:52→21:46)
[2019-03-28] MEDS: Insulin Glargine 10 UNITS in Pre-Filled Syringe SC SCH (21:33)
[2019-03-28] MEDS: Atorvastatin Calcium 10 MG TAB PO SCH (21:45)
[2019-03-29] MEDS: Lorazepam 2 MG/ML VIAL SLOW IVP PRN ×4 (01:37→19:39)
[2019-03-29] MEDS: HumaLOG 300 UNITS/3 ML VIAL SC PRN ×3 (01:38→09:47)
[2019-03-29 04:28] LABS: #Lymphocytes 0.8 thou/uL (1.20-3.40); #Monocytes 0.5 thou/uL (0.11-0.59); #Neutrophils 9.1 thou/uL (1.40-6.50); %Basophils 0.3 % (0.0-1.0); %Eosinophils 0.1 % (0.0-10.0); %Lymphocytes 7.5 % (21.0-51.0); %Monocytes 4.5 % (0.0-10.0); %Neutrophils 87.6 % (42.0-75.0); Hemoglobin 8.8 g/dL (12.0-16.0); Mean Corpuscular HGB CONC 31.2 g/dL (32.0-36.0); Mean Corpuscular Hemoglobin 26.6 pg (27.0-31.0); Mean Corpuscular Volume 85.2 fL (78.0-98.0); Mean Platelet Volume 11.1 fL (7.4-10.4); Platelet Count 168 thou/uL (130-400); RBC Distribution Width 12.7 % (11.5-14.5); Red Blood Cell (RBC) Count 3.31 mill/uL (4.20-5.40); White Blood Cell (WBC) Count 10.3 thou/uL (4.8-10.8)
[2019-03-29 04:44] LABS: Anion Gap 16 mmol/L (10-20); BUN (Urea Nitrogen) 72 mg/dL (9.8-20.1); Calc. Creatinine Clearance 24 mL/min (70-130); Calcium 9.5 mg/dL (7.8-10.44); Carbon Dioxide 27 mmol/L (23-31); Chloride 100 mmol/L (98-107); Estimated GFR-MDRD 12; Glucose 231 mg/dL (83-110); Potassium 4.7 mmol/L (3.5-5.1); Sodium 138 mmol/L (136-145)
--- NOTE | 2019-03-29 06:17 | PDOC.FM ---
- Subjective Subjective: 79 yo female seen at bedside this AM. Patient does not respond appropriately to questions and appears restless. Per nursing staff, patient required two PRN doses of ativan overnight. She has been more restless and unable to articulate clearly. Nurses note that she had 2L of fluid removed yesterday during dialysis. No other complaints. - Objective Vital Signs & Weight: Vital Signs (12 hours) Pulse Resp Pulse Ox 03/29/19 02:13 91 03/29/19 02:12 91 26 H 93 L 03/28/19 22:49 91 21 H 92 L 03/28/19 21:30 88 L Weight Weight 113.6 kg Most Recent Monitor Data Heart Rate from ECG 80 NIBP 129/88 NIBP BP-Mean 101 Respiration from ECG 14 SpO2 93 I&O: 03/27/19 03/28/19 03/29/19 06:59 06:59 06:59 Intake Total 1431 579 Output Total 157 213 55 Balance 1274 366 -55 Result Diagrams: 03/29/19 03:47 03/29/19 03:47 Phys Exam - Physical Examination appears restless BIPAP in place Respiratory: no wheezing faint crackles to bilateral bases Cardiovascular: RRR, no significant murmur Gastrointestinal: soft, non-tender, no distention, positive bowel sounds Musculoskeletal: pulses present 1+ pitting edema Neurological: moves all 4 limbs Skin: no rash Dx/Plan (1) Acute exacerbation of CHF (congestive heart failure) Code(s): I50.9 - HEART FAILURE, UNSPECIFIED Status: Acute (2) Blood bacterial culture positive Code(s): R78.81 - BACTEREMIA Status: Acute (3) (HFpEF) heart failure with preserved ejection fraction Code(s): I50.30 - UNSPECIFIED DIASTOLIC (CONGESTIVE) HEART FAILURE Status: Acute (4) Altered mental state Code(s): R41.82 - ALTERED MENTAL STATUS, UNSPECIFIED Status: Acute (5) Anemia Code(s): D64.9 - ANEMIA, UNSPECIFIED Status: Chronic (6) DM2 (diabetes mellitus, type 2) Status: Chronic Qualifiers: Diabetes mellitus complication status: with hyperglycemia (7) RAFA (acute kidney injury) Code(s): N17.9 - ACUTE KIDNEY FAILURE, UNSPECIFIED Status: Acute - Plan Plan: 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 - Will hold on sedation due to breathing status - Ordered ABG for AM due to increased restlessness, will await results. Resp (Pulmonary Edema, CHF exacerbation) - BIPAP as needed - See renal CV (CHF exacerbation) - Pressors: Required Levophed initially, but d/c - Episode of bradycardia and unresponsiveness 03/26 - No further episodes - ECHO reports EF 55-60% and no vegetations GI - advance diet as tolerated - Speech Eval pending when more stable /Renal (ARF) - Nephrology consulted, appreciate recs - Worsened Creatinine 3.57 this AM - Initiated dialysis 03/27 and removed 1L - Very little urine output Infection (MRSA positive in blood) - atelectasis noted on CXR - MRSA on 2 blood cultures - Repeat cultures negative growth to date - Sensitive to Vancomycin. Pharmacy to dose - Procal trended up to 6.56, repeat pending this AM Heme (Leukocytosis) - Trended down to 10.3 - Continue to monitor Endo (see renal) - Poorly controlled DM - Moderate SSI for now - Increased to 14u basal insulin due to NPO status and ARF Lines: [place], Right Dialysis Catheter 03/27 Code status: full, this has been discussed with family at length PPx: Famotidine, Lovenox Disposition: Guarded, will continue current plan of care and coordinate specialty teams Addendum - Attending - Attending Attestation Date/Time: 03/29/19 2039 I personally evaluated the patient and discussed the management with Dr. Oh. I agree with the History, Examination, Assessment and Plan documented above with any addition or exceptions noted below. Agitated and delirium, presumably from infection and respiratory failure. Repeat BC NTD, continue vanc. TTE without vegetations. Continue BiPAP and monitor closely.
[2019-03-29 07:43] LABS: Actual Bicarbonate (HCO3a) 23.8 mEq/L (22-28); Base Excess (BEa) -1.4 mEq/L (-2.0 to +3.0); CO2 Tension 41.9 mmHg (35.0-45.0); Calcium, Ionized 1.17 mmol/L (1.12-1.30); Carboxyhemoglobin (COHb) 0.2 gm% (0.0-3.0); Hemoglobin (Hb) 9.9 g/dL (12.0-16.0); O2 Tension (PaO2) 63.4 mmHg (> 70.0); Potassium - ABG Lab 4.65 mmol/L (3.70-5.30); Puncture Site LRA; pH, Arterial 7.37 (7.35-7.45)
[2019-03-29 07:44] LABS: ALV-art Gradient 169.425 (0-20)
[2019-03-29 08:34] LABS: Vancomycin, Random 17.2 ug/mL (See Comment)
--- NOTE | 2019-03-29 08:50 | RAD ---
XR Chest 1 View Portable History: Pneumonia Comparison: Radiograph prior day Findings: Multifocal airspace opacities are similar. Small effusions. Heart size is enlarged. No pneumothorax. Impression: Similar examination of the chest.
--- NOTE | 2019-03-29 09:38 | PRG ---
DATE OF SERVICE: 03/29/2019 A 35 minutes of critical care time. SUBJECTIVE: This patient remains on noninvasive ventilation. She also remains confused. OBJECTIVE: VITAL SIGNS: Temperature is 98.1, pulse 80, and blood pressure 129/88. A 24-hour intake 220 and output 2000. HEENT: Unremarkable except for the mask. NECK: No JVD. LUNGS: Fairly clear anteriorly. CARDIAC: S1 and S2. Regular. ABDOMEN: Obese and soft. EXTREMITIES: No edema. Has dialysis catheter in right groin. LABORATORY DATA: White blood cell count is down to 10.3, hematocrit 28.2, and platelet count 168. Sodium 138, potassium 4.7, chloride 100, CO2 of 27, BUN 72, creatinine 3.5, and glucose 231. Chest x-ray is not the same person, therefore will need to be repeated. ASSESSMENT: 1. Methicillin-resistant Staphylococcus aureus sepsis. 2. Acute respiratory failure requiring mechanical ventilation. 3. Acute renal failure with fluid overload, which is improved with dialysis. 4. Diastolic heart failure. 5. Bilateral pneumonia. 6. Delirium/dementia. PLAN: I spoke with the patient's daughter last night on the phone. She lives in [place] and she had not been aware of the patient's hospitalization. I told her that things were going well. She said her mom has been very adverse to medical care for quite some time. The patient's daughter does not have power of corporate attorney, but is the only child and would have decision making capacity in this scenario. I think the patient's daughter is coming tomorrow to see her. I think she needs to see the situation for herself and then assist us in making decision and have to proceed. The patient's respiratory status really has not changed that much with the BiPAP. We are still dealing with issues of agitation. I will try her on a Precedex drip. She is continuing hemodialysis. We are ultimately going to have to find some way to feed her. That may require Dobbhoff tube placement. Job ID: [id number]
[2019-03-29] MEDS: Aspirin Chewable 81 MG TAB PO SCH ×2 (09:44→10:22)
[2019-03-29] MEDS: Heparin 5,000 UNITS/ML VIAL SC SCH ×2 (09:44→20:23)
[2019-03-29] MEDS: Levothyroxine 150 MCG TAB PO SCH ×2 (09:44→10:22)
[2019-03-29] MEDS: Pantoprazole 40 MG VIAL IVP SCH (09:44)
[2019-03-29] MEDS: Escitalopram Oxalate 10 mg Tablet PO SCH ×2 (09:44→10:22)
[2019-03-29] MEDS: Nystatin Powder 15 GM BOT TOP SCH ×2 (09:46→20:25)
[2019-03-29] MEDS: Pregabalin 50 MG CAP PO SCH ×3 (09:54→20:20)
[2019-03-29] MEDS: rOPINIRole HCl 0.5 MG TAB PO SCH ×3 (09:55→20:21)
--- NOTE | 2019-03-29 12:20 | PDOC.EVN ---
Event Note - Event Note Event Note: Spoke with patient's daughter, Dinora Haines, about goals of care and planning. Patient's daughter would like to have everything completed for her mother included, FULL CODE, IV antibiotics, dialysis, and placement back to a senior care. Plan to have family planning meeting tomorrow if she can make it up to [place] area. All questions answered. Will revisit issues tomorrow during family meeting.
[2019-03-29] MEDS ORDERED: Heparin 10,000 UNITS/ 10 ML VIAL ONE (15:00)
--- NOTE | 2019-03-29 16:07 | PRG ---
DATE OF SERVICE: SUBJECTIVE: Patient was seen and examined at bedside and overnight events noted. Patient denies any shortness of breath or chest pain or palpitation. No history of nausea or vomiting or diarrhea or fever or chills or cramps. OBJECTIVE: GENERAL: This is a well-built female, in no apparent distress. VITAL SIGNS: Temperature 97.9. Heart rate 60. Respiratory rate 18. Blood pressure 110/62. HEENT: Atraumatic, normocephalic. Oral mucosa is moist. On BiPAP. NECK: Supple. CARDIOVASCULAR: S1, S2 heard. Rate and rhythm regular. RESPIRATORY: Clear to auscultation. GASTROINTESTINAL: Abdomen is soft. MUSCULOSKELETAL: No tenderness. No edema. DERMATOLOGIC: No skin rash. NEUROLOGIC: Confused. PSYCHIATRIC: Mood and affect normal. LABORATORY DATA: Potassium 4.7, BUN is 72, creatinine is 3.5. ASSESSMENT AND PLAN: 1. Acute kidney injury on chronic kidney disease 3 with dialysis dependent and fluid overload. The patient might need daily dialysis for fluid removal. 2. Edema with fluid overload. We will have ultrafiltration as tolerated. 3. Hypotension. Limit fluid removal. 4. Hyponatremia. 5. Hyperkalemia. 6. Anemia. 7. Leukocytosis. 8. Fluid overload. We will remove fluid as tolerated with dialysis. Plan is to have daily dialysis if tolerated. Job ID: [id number]
[2019-03-29] MEDS ORDERED: Albumin 25% 25 GM/100 ML BOT IVPB PRN (16:11)
[2019-03-29] MEDS: Vancomycin HCl 750 MG in Sodium Chloride 0.9% 250 ML 250 ML IVPB SCH (19:32)
[2019-03-29] MEDS: Atorvastatin Calcium 10 MG TAB PO SCH (20:20)
[2019-03-29] MEDS: Insulin Glargine 14 UNITS in Pre-Filled Syringe 1 EACH SC SCH (20:23)
[2019-03-30] MEDS: HumaLOG 300 UNITS/3 ML VIAL SC PRN ×2 (00:28→05:39)
[2019-03-30 04:46] LABS: #Lymphocytes 1.4 thou/uL (1.20-3.40); #Neutrophils 9.4 thou/uL (1.40-6.50); %Eosinophils 0.1 % (0.0-10.0); %Lymphocytes 11.8 % (21.0-51.0); %Monocytes 8.3 % (0.0-10.0); %Neutrophils 79.8 % (42.0-75.0); Mean Corpuscular HGB CONC 31.6 g/dL (32.0-36.0); Mean Corpuscular Hemoglobin 26.8 pg (27.0-31.0); Mean Platelet Volume 11.1 fL (7.4-10.4); Platelet Count 150 thou/uL (130-400); RBC Distribution Width 12.8 % (11.5-14.5); Red Blood Cell (RBC) Count 3.33 mill/uL (4.20-5.40); White Blood Cell (WBC) Count 11.7 thou/uL (4.8-10.8)
[2019-03-30 04:59] LABS: Anion Gap 17 mmol/L (10-20); BUN (Urea Nitrogen) 52 mg/dL (9.8-20.1); Calc. Creatinine Clearance 26 mL/min (70-130); Calcium 9.3 mg/dL (7.8-10.44); Carbon Dioxide 29 mmol/L (23-31); Chloride 98 mmol/L (98-107); Estimated GFR-MDRD 13; Glucose 185 mg/dL (83-110); Sodium 140 mmol/L (136-145)
--- NOTE | 2019-03-30 06:07 | PDOC.FM ---
- Subjective Subjective: 79 yo female seen at bedside this AM. Patient was agitated overnight and nurses increased precedex. Patient has been resting on BIPAP since that time. Per nursing staff, patient continues to de-saturate off BIPAP therapy and is restless. She had 2 L of fluid removed yesterday. Patient does not complain of any pain to nursing staff. Daughter is to be here this afternoon for family meeting. No other history is able to be obtained. - Objective Vital Signs & Weight: Vital Signs (12 hours) Temp Pulse Resp Pulse Ox 03/30/19 04:00 97.2 F L 03/30/19 02:02 54 L 03/30/19 02:01 54 L 27 H 92 L 03/30/19 00:00 97.5 F L 03/29/19 22:09 52 L 03/29/19 20:00 97.3 F L 96 Weight Weight 115.4 kg Most Recent Monitor Data Heart Rate from ECG 74 NIBP 104/68 NIBP BP-Mean 80 Respiration from ECG 21 SpO2 91 I&O: 03/28/19 03/29/19 03/30/19 06:59 06:59 06:59 Intake Total 579 220 726 Output Total 213 85 9 Balance 366 135 717 Result Diagrams: 03/30/19 04:13 03/30/19 04:13 Phys Exam - Physical Examination Constitutional: NAD resting on BIPAP Respiratory: no wheezing, clear to auscultation bilateral Cardiovascular: RRR, no significant murmur Gastrointestinal: soft, positive bowel sounds Musculoskeletal: pulses present 1+ pitting edema sedated Deviation from normal: sedated Dx/Plan (1) Acute exacerbation of CHF (congestive heart failure) Code(s): I50.9 - HEART FAILURE, UNSPECIFIED Status: Acute (2) Blood bacterial culture positive Code(s): R78.81 - BACTEREMIA Status: Acute (3) (HFpEF) heart failure with preserved ejection fraction Code(s): I50.30 - UNSPECIFIED DIASTOLIC (CONGESTIVE) HEART FAILURE Status: Acute (4) Altered mental state Code(s): R41.82 - ALTERED MENTAL STATUS, UNSPECIFIED Status: Acute (5) Anemia Code(s): D64.9 - ANEMIA, UNSPECIFIED Status: Chronic (6) DM2 (diabetes mellitus, type 2) Status: Chronic Qualifiers: Diabetes mellitus complication status: with hyperglycemia (7) RAFA (acute kidney injury) Code(s): N17.9 - ACUTE KIDNEY FAILURE, UNSPECIFIED Status: Acute - Plan 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 Resp (Pulmonary Edema, CHF exacerbation) - BIPAP as needed. Settings 09/20 at 40% FiO2 - See renal CV (CHF exacerbation) - Pressors: Required Levophed initially, but d/c - Episode of bradycardia and unresponsiveness 03/26 - No further episodes - ECHO reports EF 55-60% and no vegetations GI - advance diet as tolerated - Will need to consider alternative forms of feeding such as NG tube vs TPN therapy if unable to tolerate off BIPAP - Speech Eval pending when more stable /Renal (ARF) - Nephrology consulted, appreciate recs - Creatinine 3.32 this AM - Nephro may recommend daily dialysis - 2L removed on 03/29 - Will need permanent access placed if family decides to continue with dialysis Infection (MRSA positive in blood) - atelectasis noted on CXR - MRSA on 11/18 blood cultures - Repeat cultures negative growth to date - Sensitive to Vancomycin. Pharmacy to dose Heme (Leukocytosis) - 11.7 this AM - Continue to monitor Endo (see renal) - Poorly controlled DM - Moderate SSI for now - Increased to 14u basal insulin due to NPO status and ARF - glucose better controlled over last 24 hours Lines: Right Dialysis Catheter 03/27 Code status: full, this has been discussed with family at length PPx: Famotidine, Heparin Disposition: Guarded, will continue current plan of care and coordinate specialty teams and await family meeting. Addendum - Attending - Attending Attestation Date/Time: 03/30/19 7584 I personally evaluated the patient and discussed the management with Dr. Oh. I agree with the History, Examination, Assessment and Plan documented above with any addition or exceptions noted below. The patient remains confused and unable to answer questions. She is working slightly harder to breathe off of BiPap, and I believe she will have to be placed on it again shortly. Family meeting planned for this afternoon. Appreciate pulm's input.
--- NOTE | 2019-03-30 07:44 | RAD ---
Frontal radiograph chest: 03/30/2019 COMPARISON: 03/29/2019 HISTORY: Pneumonia FINDINGS: Stable pulmonary vascular prominence, perihilar and bibasilar interstitial opacity, small b ilateral pleural effusions, and nonspecific bibasilar airspace disease. Stable prominence of the cardiac silhouette and atherosclerotic calcification of the aortic arch. No pneumothorax. IMPRESSION: No significant interval change.
[2019-03-30] MEDS: Nystatin Powder 15 GM BOT TOP SCH ×2 (09:01→20:42)
[2019-03-30] MEDS: Heparin 5,000 UNITS/ML VIAL SC SCH ×2 (09:30→20:40)
[2019-03-30] MEDS: Pregabalin 50 MG CAP PO SCH ×2 (09:30→20:39)
[2019-03-30] MEDS: Escitalopram Oxalate 10 mg Tablet PO SCH (09:31)
[2019-03-30] MEDS: Aspirin Chewable 81 MG TAB PO SCH (09:31)
[2019-03-30] MEDS: Levothyroxine 150 MCG TAB PO SCH (09:31)
[2019-03-30] MEDS: Sodium Chloride 0.9% (PF) 10 ML VIAL FS PRN (09:32)
[2019-03-30] MEDS: Pantoprazole 40 MG VIAL IVP SCH (09:32)
[2019-03-30] MEDS: Lorazepam 2 MG/ML VIAL SLOW IVP PRN ×3 (09:33→21:21)
--- NOTE | 2019-03-30 09:48 | PRG ---
DATE OF SERVICE: 03/30/2019 SUBJECTIVE: The patient is currently on nasal cannula. She is confused. It is difficult to understand what she is saying. She alternates between Panamanian and Slovenian, but also is speaking in tongues. OBJECTIVE: VITAL SIGNS: On exam, temperature is 97.2, pulse 69, blood pressure 97/42, and O2 saturation 91%. HEENT: Unremarkable. NECK: Without adenopathy, JVD, or bruits. LUNGS: Fairly clear. CARDIAC: S1 and S2, regular. ABDOMEN: Soft. EXTREMITIES: No edema. LABORATORY DATA: White blood cell count 11.7, hematocrit 28.4, and platelet count 150. ABG; pH of 7.37, pCO2 of 41, and pO2 of 63 yesterday. Sodium 140, potassium 4, chloride 98, CO2 of 29, BUN 52, creatinine 3.3, and glucose 185. ASSESSMENT: 1. Profound encephalopathy. 2. Acute hypoxic respiratory failure, requiring mechanical ventilation. 3. Methicillin-resistant Staphylococcus aureus sepsis. 4. Acute renal failure with fluid overloaded. 5. Diastolic heart failure. 6. Bilateral pneumonia. PLAN: 1. Continue dialysis. 2. Place Dobhoff tube and initiate her antipsychotic medication that she was taking at home. 3. Continue the vancomycin for the Staph sepsis. 4. Continue BiPAP as needed. 5. Expecting daughter to arrive today. We need to discuss plan of care with her. Job ID: [id number]
--- NOTE | 2019-03-30 10:48 | PRG ---
DATE OF SERVICE: 03/30/2019 SUBJECTIVE: The patient was seen and examined in ICU. Remains confused. Had dialysis yesterday, removed 2 L off, even though remain hypotensive. This morning, she is hypotensive. OBJECTIVE: GENERAL: This is an obese female, remains confused. VITAL SIGNS: Temperature 97.2. Pulse 69. Respiratory rate 20. Blood pressure 97/42. HEENT: Atraumatic, normocephalic. NECK: Supple. CV: S1 and S2 heard. Rate and rhythm regular. RESPIRATORY: Clear. GI: Abdomen is soft. MUSCULOSKELETAL: No tenderness. No edema. DERMATOLOGIC: No skin rash. NEUROLOGIC: Confused. LABORATORY DATA: Potassium is 4.0, BUN is 52, creatinine is 3.3. ASSESSMENT AND PLAN: 1. Acute kidney injury on chronic kidney disease stage 3 with dialysis dependent. Had dialysis yesterday with 2 L removed, even though remain hypotensive most of the time. 2. Edema with fluid overload. We will have ultrafiltration. 3. Hypotension. 4. Hyperkalemia, better. 5. Leukocytosis. 6. Azotemia, better. 7. Altered mentation, most likely from uremia or azotemia. 8. No dialysis today. We will plan for dialysis tomorrow if tolerated. I think primary team is arranging a family meeting today. We will await the decision from that too. We will follow the case with you. Job ID: [id number]
[2019-03-30] MEDS: rOPINIRole HCl 0.5 MG TAB PO SCH ×2 (10:57→20:39)
--- NOTE | 2019-03-30 11:08 | RAD ---
EXAM: Single view of the abdomen HISTORY: Dobbhoff placement COMPARISON: None FINDINGS: Single view of the abdomen shows a nonspecific, nonobstructive bowel gas pattern. A Dobbhof f tube is seen with its tip near the midline, likely within the stomach. No suspicious calcifications are seen. The bones are unremarkable. IMPRESSION: Dobbhoff tube located in the stomach
[2019-03-30] MEDS ORDERED: Heparin 10,000 UNITS/ 10 ML VIAL ONE (14:51)
[2019-03-30] MEDS: Insulin Glargine 14 UNITS in Pre-Filled Syringe 1 EACH SC SCH (20:39)
[2019-03-30] MEDS: Atorvastatin Calcium 10 MG TAB PO SCH (20:42)
[2019-03-31] MEDS: HumaLOG 300 UNITS/3 ML VIAL SC PRN ×2 (00:26→05:25)
[2019-03-31 04:31] LABS: #Monocytes 1.1 thou/uL (0.11-0.59); #Neutrophils 8.1 thou/uL (1.40-6.50); %Basophils 0.1 % (0.0-1.0); %Eosinophils 0.2 % (0.0-10.0); %Lymphocytes 17.5 % (21.0-51.0); %Monocytes 9.6 % (0.0-10.0); %Neutrophils 72.6 % (42.0-75.0); Hemoglobin 8.9 g/dL (12.0-16.0); Mean Corpuscular HGB CONC 31.7 g/dL (32.0-36.0); Mean Corpuscular Hemoglobin 26.9 pg (27.0-31.0); Mean Platelet Volume 10.6 fL (7.4-10.4); Platelet Count 134 thou/uL (130-400); Red Blood Cell (RBC) Count 3.31 mill/uL (4.20-5.40); White Blood Cell (WBC) Count 11.2 thou/uL (4.8-10.8)
[2019-03-31 04:47] LABS: Anion Gap 16 mmol/L (10-20); BUN (Urea Nitrogen) 69 mg/dL (9.8-20.1); Calc. Creatinine Clearance 19 mL/min (70-130); Calcium 9.2 mg/dL (7.8-10.44); Carbon Dioxide 29 mmol/L (23-31); Chloride 101 mmol/L (98-107); Estimated GFR-MDRD 9; Glucose 172 mg/dL (83-110); Potassium 4.1 mmol/L (3.5-5.1); Sodium 142 mmol/L (136-145)
--- NOTE | 2019-03-31 05:57 | PDOC.FM ---
- Subjective Subjective: 79 yo female seen at bedside this AM. Patient has periods of waxing and waning AMS. At times she will be moaning and yelling out. Other times she will sit quietly and follow commands. Patient's daughter visited yesterday and wants to have everything possible completed for her mother including tracheostomy if needed as well as dialysis. Per nursing staff, patient has been at her consistent mentation. Patient has had to have precedex decreased due to hypotensive BP. No other acute events. - Objective Vital Signs & Weight: Vital Signs (12 hours) Temp Pulse Resp Pulse Ox 03/31/19 04:00 97.4 F L 03/31/19 02:27 75 22 H 94 L 03/31/19 00:00 97.0 F L 03/30/19 22:00 56 L 15 100 03/30/19 20:00 94 L 03/30/19 19:00 97.2 F L 03/30/19 18:34 77 22 H Weight Weight 115.4 kg Most Recent Monitor Data Heart Rate from ECG 81 NIBP 134/64 NIBP BP-Mean 87 Respiration from ECG 19 SpO2 94 I&O: 03/29/19 03/30/19 03/31/19 06:59 06:59 06:59 Intake Total 220 832 350 Output Total 85 9 1 Balance 135 823 349 Result Diagrams: 03/31/19 04:11 03/31/19 04:11 Phys Exam - Physical Examination Constitutional: NAD resting on BIPAP BIPAP in place Respiratory: no wheezing, clear to auscultation bilateral Cardiovascular: RRR, no significant murmur Gastrointestinal: soft, non-tender, no distention, positive bowel sounds Musculoskeletal: no edema, pulses present Neurological: non-focal, moves all 4 limbs Skin: no rash, cap refill <2 seconds Dx/Plan (1) Acute exacerbation of CHF (congestive heart failure) Code(s): I50.9 - HEART FAILURE, UNSPECIFIED Status: Acute (2) Blood bacterial culture positive Code(s): R78.81 - BACTEREMIA Status: Acute (3) (HFpEF) heart failure with preserved ejection fraction Code(s): I50.30 - UNSPECIFIED DIASTOLIC (CONGESTIVE) HEART FAILURE Status: Acute (4) Altered mental state Code(s): R41.82 - ALTERED MENTAL STATUS, UNSPECIFIED Status: Acute (5) Anemia Code(s): D64.9 - ANEMIA, UNSPECIFIED Status: Chronic (6) DM2 (diabetes mellitus, type 2) Status: Chronic Qualifiers: Diabetes mellitus complication status: with hyperglycemia (7) RAFA (acute kidney injury) Code(s): N17.9 - ACUTE KIDNEY FAILURE, UNSPECIFIED Status: Acute - Plan 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 Desires to move her closer to [place] when stable. - Precedex for agitation as tolerated Resp (Pulmonary Edema, CHF exacerbation) - BIPAP as needed. - See renal CV (CHF exacerbation) - Pressors: Required Levophed initially, but d/c - Episode of bradycardia and unresponsiveness 03/26 - No further episodes - ECHO reports EF 55-60% and no vegetations GI - advance diet as tolerated - Will need to consider alternative forms of feeding such as NG tube vs TPN therapy if unable to tolerate off BIPAP - Speech Eval pending when more stable /Renal (ARF) - Nephrology consulted, appreciate recs - Creatinine 4.58 this AM - Nephro may recommend daily dialysis - Dialysis planned for today - Will need permanent access placed if family decides to continue with dialysis Infection (MRSA positive in blood) - atelectasis noted on CXR - MRSA on 2 blood cultures - Repeat cultures negative growth to date - Sensitive to Vancomycin. Pharmacy to dose Heme (Leukocytosis) - 11.2 this AM - Continue to monitor Endo (see renal) - Poorly controlled DM - Moderate SSI for now - Increased to 14u basal insulin due to NPO status and ARF Lines: Right Dialysis Catheter 03/27 Code status: full, this has been discussed with family at length PPx: Famotidine, Heparin Disposition: Guarded, will continue current plan of care and coordinate specialty teams and await family meeting. Addendum - Attending - Attending Attestation Date/Time: 03/31/19 8607 I personally evaluated the patient and discussed the management with Dr. Oh. I agree with the History, Examination, Assessment and Plan documented above with any addition or exceptions noted below. Patient didn't tolerate dobhoff placement. Precedex was weaned off overnight. Pt is able to say my name this morning. Will see if she is able to eat anything this morning. Still requiring bipap. Pt's daughter told Dr. Oh she wants everything done even including a trach if it became necessary.
--- NOTE | 2019-03-31 08:48 | PRG ---
DATE OF SERVICE: 03/31/2019 SUBJECTIVE: The patient was seen and examined at the bedside in ICU. Remains confused on BiPAP. OBJECTIVE: GENERAL: This is an obese female, seen in the ICU, confused and on BiPAP. VITAL SIGNS: Temperature 97.5, pulse 82, respiratory rate 20, blood pressure 124/103. HEENT: BiPAP present. CHEST: Clear. GASTROINTESTINAL: Obese. MUSCULOSKELETAL: No edema. DERMATOLOGIC: No skin rash. NEUROLOGIC: Confused. LABORATORY DATA: Potassium 4.8, BUN is 69, and creatinine is 4.5. ASSESSMENT AND PLAN: 1. Acute kidney injury on chronic kidney disease, stage 3, dialysis dependent. We will continue on dialysis as tolerated. 2. Edema. Remove fluid if tolerated. 3. Hypotension, seems to be better. 4. Hyperkalemia, stable. 5. Azotemia. 6. Altered mentation, not getting any better. Plan to have dialysis as tolerated. We will have dialysis today with fluid removal as tolerated. Job ID: [id number]
--- NOTE | 2019-03-31 08:50 | PRG ---
DATE OF SERVICE: 03/31/2019 SUBJECTIVE: The patient is a little more oriented this morning. She had her Precedex turned off late last night. OBJECTIVE: VITAL SIGNS: Her temperature is 97.4, pulse 92, blood pressure 124/103, and O2 saturation 92%. 24-hour intake 832 and output 2000. HEENT: Unremarkable. NECK: No adenopathy or JVD. LUNGS: Diminished breath sounds in the bases. CARDIAC: S1 and S2, regular. ABDOMEN: Obese, soft, and nontender. EXTREMITIES: Trace edema. LABORATORY DATA: White blood cell count 11.2, hematocrit 28.1, and platelet count 134. Sodium 142, potassium 4.1, chloride 101, CO2 of 29, BUN 69, creatinine 4.5, and glucose 172. ASSESSMENT: 1. Acute on chronic hypoxic respiratory failure, requiring mechanical ventilation. X-ray continues to show volume overload. 2. Methicillin-resistant Staphylococcus aureus sepsis. 3. Encephalopathy. 4. Acute renal failure. 5. Diastolic heart failure. PLAN: 1. Continue dialysis as needed. 2. Continue antibiotics. 3. Initiate low-dose enteral tube feeds. 4. Psychiatric medications were restarted yesterday through her tube. Job ID: [id number]
[2019-03-31 08:58] LABS: Vancomycin, Random 21.3 ug/mL (See Comment)
[2019-03-31] MEDS: Levothyroxine 150 MCG TAB PO SCH (09:25)
[2019-03-31] MEDS: Aspirin Chewable 81 MG TAB PO SCH (09:25)
[2019-03-31] MEDS: rOPINIRole HCl 0.5 MG TAB PO SCH ×2 (09:25→21:26)
[2019-03-31] MEDS: Escitalopram Oxalate 10 mg Tablet PO SCH (09:25)
[2019-03-31] MEDS: Pantoprazole 40 MG VIAL IVP SCH (09:26)
[2019-03-31] MEDS: Heparin 5,000 UNITS/ML VIAL SC SCH ×2 (09:27→21:27)
[2019-03-31] MEDS: Nystatin Powder 15 GM BOT TOP SCH ×2 (09:27→21:28)
--- NOTE | 2019-03-31 09:28 | RAD ---
PORTABLE CHEST 1 VIEW: DATE: 03/31/2019. TIME: 4:44 a.m. HISTORY: Pneumonia. FINDINGS: Comparison is made with the exam of previous day. There has been interval placement of a feeding tube which can be traced into the stomach with tip exc luded from the film. There is continued pulmonary vascular congestion with bilateral perihilar and bibasilar opacities and accompanying pleural effusions. A right shoulder arthroplasty is again seen. POS: [facility]
[2019-03-31] MEDS: Pregabalin 50 MG CAP PO SCH ×2 (09:33→21:26)
[2019-03-31] MEDS: Lorazepam 2 MG/ML VIAL SLOW IVP PRN (11:58)
[2019-03-31] MEDS ORDERED: Heparin 10,000 UNITS/ 10 ML VIAL ONE (15:00)
[2019-03-31] MEDS: Atorvastatin Calcium 10 MG TAB PO SCH (21:25)
[2019-03-31] MEDS: Insulin Glargine 14 UNITS in Pre-Filled Syringe 1 EACH SC SCH (21:26)
[2019-03-31] MEDS: Amitriptyline HCl 25 MG TAB PO PRN (21:27)
[2019-04-01 05:40] LABS: #Lymphocytes 1.5 thou/uL (1.20-3.40); #Monocytes 0.9 thou/uL (0.11-0.59); #Neutrophils 8.2 thou/uL (1.40-6.50); %Basophils 0.1 % (0.0-1.0); %Eosinophils 0.3 % (0.0-10.0); %Lymphocytes 13.9 % (21.0-51.0); %Monocytes 8.4 % (0.0-10.0); %Neutrophils 77.4 % (42.0-75.0); Hemoglobin 8.4 g/dL (12.0-16.0); Mean Corpuscular HGB CONC 32.6 g/dL (32.0-36.0); Mean Corpuscular Hemoglobin 27.7 pg (27.0-31.0); Mean Corpuscular Volume 84.9 fL (78.0-98.0); Mean Platelet Volume 11.2 fL (7.4-10.4); Platelet Count 141 thou/uL (130-400); RBC Distribution Width 13.3 % (11.5-14.5); Red Blood Cell (RBC) Count 3.02 mill/uL (4.20-5.40); White Blood Cell (WBC) Count 10.6 thou/uL (4.8-10.8)
[2019-04-01] MEDS: HumaLOG 300 UNITS/3 ML VIAL SC PRN ×2 (06:00→08:21)
[2019-04-01 06:01] LABS: Anion Gap 16 mmol/L (10-20); BUN (Urea Nitrogen) 49 mg/dL (9.8-20.1); Calc. Creatinine Clearance 21 mL/min (70-130); Calcium 8.9 mg/dL (7.8-10.44); Carbon Dioxide 27 mmol/L (23-31); Chloride 99 mmol/L (98-107); Estimated GFR-MDRD 11; Glucose 253 mg/dL (83-110); Potassium 4.2 mmol/L (3.5-5.1); Sodium 138 mmol/L (136-145)
--- NOTE | 2019-04-01 06:05 | PDOC.FM ---
- Subjective Subjective: 79 yo female seen at bedside this AM. Patient has BIPAP in place. Patient inconsistently can follow commands and respond appropriately. Per nursing staff, patient has hypotensive episodes on precedex. Patient continues to have outbursts and agitation off sedation. Apparently daughter was around yesterday and reiterated that she would go as far as trach and peg placement with transfer closer to [place]. - Objective Vital Signs & Weight: Vital Signs (12 hours) Temp Pulse Resp Pulse Ox 04/01/19 02:31 68 17 96 04/01/19 00:00 98.2 F 03/31/19 22:20 83 20 95 03/31/19 20:00 97.9 F 95 03/31/19 18:15 92 20 91 L Weight Weight 115.8 kg Most Recent Monitor Data Heart Rate from ECG 75 NIBP 92/54 NIBP BP-Mean 66 Respiration from ECG 15 SpO2 97 I&O: 03/30/19 03/31/19 04/01/19 06:59 06:59 06:59 Intake Total 386 503 9888 Output Total 9 1 0 Balance 777 900 0585 Result Diagrams: 04/01/19 05:10 04/01/19 05:10 Phys Exam - Physical Examination Constitutional: NAD BIPAP in place Respiratory: no wheezing, clear to auscultation bilateral Cardiovascular: RRR, no significant murmur Gastrointestinal: soft, non-tender, no distention, positive bowel sounds Musculoskeletal: no edema Neurological: non-focal, moves all 4 limbs Skin: cap refill <2 seconds Dx/Plan (1) Encephalopathy Code(s): G93.40 - ENCEPHALOPATHY, UNSPECIFIED Status: Acute (2) Acute exacerbation of CHF (congestive heart failure) Code(s): I50.9 - HEART FAILURE, UNSPECIFIED Status: Acute (3) Blood bacterial culture positive Code(s): R78.81 - BACTEREMIA Status: Acute (4) (HFpEF) heart failure with preserved ejection fraction Code(s): I50.30 - UNSPECIFIED DIASTOLIC (CONGESTIVE) HEART FAILURE Status: Acute (5) Altered mental state Code(s): R41.82 - ALTERED MENTAL STATUS, UNSPECIFIED Status: Acute (6) Anemia Code(s): D64.9 - ANEMIA, UNSPECIFIED Status: Chronic (7) DM2 (diabetes mellitus, type 2) Status: Chronic Qualifiers: Diabetes mellitus complication status: with hyperglycemia (8) RAFA (acute kidney injury) Code(s): N17.9 - ACUTE KIDNEY FAILURE, UNSPECIFIED Status: Acute - Plan Plan: SET OFF BLOCKER (Dementia vs AMS) - Baseline non-compliance - Will need further input from PCP and family members - Delirium vs encephalopathy Resp (Pulmonary Edema, CHF exacerbation) - BIPAP as needed. - See renal CV (CHF exacerbation) - Pressors: Required Levophed initially, but d/c - Episode of bradycardia and unresponsiveness 03/26 - No further episodes - ECHO reports EF 55-60% and no vegetations - 03/31-04/01 Hypotensive episodes due to sedation GI - advance diet as tolerated with tube feeds - Will need to consider alternative forms of feeding such as NG tube vs TPN therapy if unable to tolerate off BIPAP - Speech Eval pending when more stable /Renal (ARF) - Nephrology consulted, appreciate recs - Dialysis per Nephrology schedule - Will need permanent access placed if family decides to continue with dialysis Infection (MRSA positive in blood) - atelectasis noted on CXR - MRSA on 11/18 blood cultures - Repeat cultures negative growth to date - Procal decreased to 1.8 - Sensitive to Vancomycin. Pharmacy to dose Heme (Leukocytosis) - 10.6 this AM - Continue to monitor Endo (see renal) - Poorly controlled DM - Moderate SSI for now - Increased to 14u basal insulin Lines: Right Dialysis Catheter 03/27 Code status: full, this has been discussed with family at length PPx: Famotidine, Heparin Disposition: Guarded, will continue current plan of care and coordinate specialty teams and family wishes. Addendum - Attending - Attending Attestation Date/Time: 04/01/19 4284 I personally evaluated the patient and discussed the management with Dr. Oh. I agree with the History, Examination, Assessment and Plan documented above with any addition or exceptions noted below. The patient still cannot come off bipap. Tube feeds have been started. She will continue dialysis. Family has reiterated their desire for trach and peg if needed.
[2019-04-01] MEDS: Levothyroxine 150 MCG TAB PO SCH (07:37)
--- NOTE | 2019-04-01 07:37 | PDOC.EVN ---
Event Note - Event Note Event Note: Transition of Care Note 04/01/19 79 yo [place] patient presented to ED on 03/26/19 for respiratory distress. Patient is a personal patient of Dr. Saldana and has a long history of noncompliance. Patient's home O2 requirement is 2L NC, but on day of admission her O2 saturations were in the 70s on non-rebreather. Patient was then found to have a fever to 101.5 and bilateral pleural effusions. She was admitted to the ICU for CHF exacerbation as well as sepsis for pneumonia. Patient was also admitted for RAFA with a baseline creatinine near 1.0. Patient has since become anuric and required dialysis. For almost 5 days patient did not have any PO intake and continued to diurese 1-3L via dialysis with no improvement in her kidney function. Patient was also found to have MRSA positive 2/2 blood cultures. She has been on Vancomycin since that time and will likely need to have outpatient antibiotics for a total of 6 weeks of therapy following discharge from the hospital. ID has not been consulted at this time. 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 Patient has had waxing and waning mentation pointing to either encephalopathy vs. delirium. Patient's known baseline is dementia, but overall coherent. I have had several conversations with her daughter reviewing the severity of her mother's health concerns. The daughter has reiterated multiple times that she wants everything completed for her mother including dialysis, IV antibiotics, FULL CODE status, respiratory support (including tracheostomy), and feeding support (including peg tube). Patient's daughter desires for her to become stable enough for transfer to facility closer to [facility]. Her phone number is [phone] and would like to be included in any major changes to the treatment regimen. Please contact with questions or concerns.
--- NOTE | 2019-04-01 08:00 | RAD ---
SINGLE VIEW CHEST: HISTORY: Pneumonia. COMPARISON: 03/31/2019 FINDINGS: A single view of the chest shows an enlarged but stable cardiomediastinal silhouette. There are mult ifocal infiltrates in the lungs. There appears to be a small right pleural effusion. Degenerative c hanges are seen in the spine. A feeding tube is seen, unchanged in position. IMPRESSION: Stable examination. POS: [facility]
[2019-04-01] MEDS: Pregabalin 50 MG CAP PO SCH ×2 (08:17→21:02)
[2019-04-01] MEDS: Escitalopram Oxalate 10 mg Tablet PO SCH (08:26)
[2019-04-01] MEDS: Pantoprazole 40 MG VIAL IVP SCH (08:26)
[2019-04-01] MEDS: Nystatin Powder 15 GM BOT TOP SCH ×2 (08:27→21:12)
[2019-04-01] MEDS: Heparin 5,000 UNITS/ML VIAL SC SCH ×2 (08:27→21:04)
[2019-04-01] MEDS: Aspirin Chewable 81 MG TAB PO SCH (08:27)
[2019-04-01] MEDS: rOPINIRole HCl 0.5 MG TAB PO SCH ×2 (08:54→21:02)
--- NOTE | 2019-04-01 10:06 | PRG ---
DATE OF SERVICE: 04/01/2019 SUBJECTIVE: The patient remains on BiPAP. She is a lot more awake this morning. She is actually speaking Albanian instead of Polish today. She is asking for water. OBJECTIVE: VITAL SIGNS: Her temperature is 98.6, pulse 83, blood pressure 124/68, O2 saturations in the mid 90s on the BiPAP. When she comes to a standard nasal cannula, her best O2 saturation is apparently in the high 80s. HEENT: Unremarkable. NECK: No JVD. LUNGS: Coarse breath sounds bilaterally. CARDIAC: S1 and S2, regular. ABDOMEN: Soft. EXTREMITIES: No edema. LABORATORY DATA: Sodium 138, potassium 4.2, chloride 99, CO2 of 26, BUN 49, creatinine 4.1, glucose 253. White blood cell count 10.6, hematocrit 25.7, and platelet count 141. DIAGNOSTIC DATA: X-ray demonstrates bilateral pulmonary edema which may be better than yesterday that is probably due to the fact that she received dialysis yesterday. ASSESSMENT: 1. Continued fluid overload. 2. Acute on chronic renal failure. 3. Acute respiratory failure requiring mechanical ventilation. 4. MRSA sepsis. 5. Encephalopathy, which is improved. 6. Diastolic heart dysfunction. PLAN: We will try on high-flow oxygen to see if this will enable her to eat. She is continuing on vancomycin. She needs to continue on dialysis as her x-ray looks fluid overloaded. Job ID: [id number]
--- NOTE | 2019-04-01 11:01 | PRG ---
DATE OF SERVICE: 04/01/2019 SUBJECTIVE: The patient was seen and examined in ICU, remains confused and on restraints. OBJECTIVE: GENERAL: This is an obese female, in [id number] distress. VITAL SIGNS: Temperature 98.6, pulse 76, respiratory rate 18, blood pressure 124/60. HEENT: Atraumatic and normocephalic. CHEST: Clear. GI: Abdomen is soft. CV: S1 and S2 heard. MUSCULOSKELETAL: No edema. DERMATOLOGIC: No skin rash. NEUROLOGIC: Confused. LABORATORY DATA: Potassium 4.2, BUN is 49, creatinine is 4.07. ASSESSMENT AND PLAN: 1. Acute kidney injury on chronic kidney disease with fluid overload and dialysis dependent. Plan to have daily dialysis if tolerated. Plan is to have dialysis today. 2. Edema with fluid overload. Rule out other causes of pulmonary infiltrates too. We will attempt to remove fluid. The patient is hypotensive. 3. Hypotension. 4. Hyperkalemia, stable. 5. Azotemia. 6. Altered mentation. Plan is to have ultrafiltration with 3 L to be removed as tolerated. We will continue to have daily dialysis as tolerated with fluid removal if tolerated. Prognosis is guarded. Job ID: [id number]
[2019-04-01] MEDS ORDERED: Heparin 1,000 UNITS/ML VIAL ONE (11:11)
[2019-04-01] MEDS ORDERED: Albumin 25% 25 GM/100 ML BOT IVPB SCH (11:15)
[2019-04-01] MEDS: Atorvastatin Calcium 10 MG TAB PO SCH (21:02)
[2019-04-01] MEDS: Insulin Glargine 14 UNITS in Pre-Filled Syringe 1 EACH SC SCH (21:05)
[2019-04-02] MEDS: Lorazepam 2 MG/ML VIAL SLOW IVP PRN ×4 (01:23→20:48)
[2019-04-02] MEDS: Levothyroxine 150 MCG TAB PO SCH (05:07)
[2019-04-02 05:23] LABS: #Eosinphils 0.2 thou/uL (0.0-0.7); #Lymphocytes 1.8 thou/uL (1.20-3.40); #Monocytes 0.7 thou/uL (0.11-0.59); #Neutrophils 7.2 thou/uL (1.40-6.50); %Basophils 0.1 % (0.0-1.0); %Eosinophils 1.7 % (0.0-10.0); %Monocytes 7.3 % (0.0-10.0); %Neutrophils 72.8 % (42.0-75.0); Hemoglobin 8.4 g/dL (12.0-16.0); Mean Corpuscular HGB CONC 29.7 g/dL (32.0-36.0); Mean Corpuscular Hemoglobin 25.7 pg (27.0-31.0); Mean Corpuscular Volume 86.7 fL (78.0-98.0); Mean Platelet Volume 11.2 fL (7.4-10.4); Platelet Count 146 thou/uL (130-400); RBC Distribution Width 13.6 % (11.5-14.5); Red Blood Cell (RBC) Count 3.27 mill/uL (4.20-5.40); White Blood Cell (WBC) Count 9.9 thou/uL (4.8-10.8)
[2019-04-02 05:32] LABS: Anion Gap 18 mmol/L (10-20); BUN (Urea Nitrogen) 59 mg/dL (9.8-20.1); Calc. Creatinine Clearance 16 mL/min (70-130); Calcium 9.1 mg/dL (7.8-10.44); Carbon Dioxide 25 mmol/L (23-31); Chloride 100 mmol/L (98-107); Estimated GFR-MDRD 8; Glucose 178 mg/dL (83-110); Sodium 139 mmol/L (136-145)
--- NOTE | 2019-04-02 06:30 | PDOC.FM ---
- Subjective Subjective: Patient not following commands this AM. She does not appear to be in any distress. No significant overnight events per nursing staff. They do report occasional hypotension when sleeping with MAPs below 65. - Objective MAR Reviewed: Yes Vital Signs & Weight: Vital Signs (12 hours) Temp Pulse Resp Pulse Ox 04/02/19 04:00 97.9 F 04/02/19 02:42 55 L 18 96 04/02/19 00:00 97.6 F 04/01/19 22:09 75 18 04/01/19 20:00 97.6 F 92 L Weight Weight 108.7 kg Most Recent Monitor Data Heart Rate from ECG 51 NIBP 73/47 NIBP BP-Mean 55 Respiration from ECG 15 SpO2 97 I&O: 03/31/19 04/01/19 04/02/19 06:59 06:59 06:59 Intake Total 350 1819.5 388.3 Output Total 1 0 1 Balance 349 1819.5 387.3 Result Diagrams: 04/02/19 04:15 04/02/19 04:15 EKG Reviewed by me: Yes Radiology Reviewed by me: Yes Phys Exam - Physical Examination Constitutional: NAD HEENT: moist MMs Coarse breath sounds anteriorly Cardiovascular: RRR Distant heart sounds Gastrointestinal: soft, no distention Musculoskeletal: no edema, pulses present Neurological: non-focal, moves all 4 limbs Deviation from normal: Alert and oriented x2 on re-evaluation, not following commands Skin: cap refill <2 seconds Dx/Plan (1) Blood bacterial culture positive Code(s): R78.81 - BACTEREMIA Status: Acute (2) Encephalopathy Code(s): G93.40 - ENCEPHALOPATHY, UNSPECIFIED Status: Acute (3) Pneumonia Code(s): J18.9 - PNEUMONIA, UNSPECIFIED ORGANISM Status: Acute (4) Sepsis Code(s): A41.9 - SEPSIS, UNSPECIFIED ORGANISM Status: Acute (5) (HFpEF) heart failure with preserved ejection fraction Code(s): I50.30 - UNSPECIFIED DIASTOLIC (CONGESTIVE) HEART FAILURE Status: Acute (6) RAFA (acute kidney injury) Code(s): N17.9 - ACUTE KIDNEY FAILURE, UNSPECIFIED Status: Acute (7) Acute exacerbation of CHF (congestive heart failure) Code(s): I50.9 - HEART FAILURE, UNSPECIFIED Status: Acute (8) Altered mental state Code(s): R41.82 - ALTERED MENTAL STATUS, UNSPECIFIED Status: Acute (9) Anemia Code(s): D64.9 - ANEMIA, UNSPECIFIED Status: Chronic (10) DM type 2, uncontrolled, with retinopathy Code(s): E11.319 - TYPE 2 DIABETES W UNSP DIABETIC RTNOP W/O MACULAR EDEMA; E11.65 - TYPE 2 DIABETES MELLITUS WITH HYPERGLYCEMIA Status: Chronic (11) Dyslipidemia Code(s): E78.5 - HYPERLIPIDEMIA, UNSPECIFIED Status: Chronic (12) HTN (hypertension) Code(s): I10 - ESSENTIAL (PRIMARY) HYPERTENSION Status: Chronic Qualifiers: (13) Hypothyroid Code(s): E03.9 - HYPOTHYROIDISM, UNSPECIFIED Status: Chronic (14) Morbid obesity Code(s): E66.01 - MORBID (SEVERE) OBESITY DUE TO EXCESS CALORIES Status: Chronic - Plan Plan: HOME COMPANION (Dementia vs AMS) - Baseline non-compliance - Will need further input from PCP and family members - Delirium vs encephalopathy - Mentation improved yesterday for period of time, may be 2/2 hypoxia Resp (Pulmonary Edema, CHF exacerbation) - Patient off of BiPaP and tolerating HF NC - Patient on 2L NC at home - See renal (continue diuresis with dialysis) CV (CHF exacerbation) - Pressors: Required Levophed initially, but d/c'd - Episode of bradycardia and unresponsiveness 03/26; No further episodes - ECHO reports EF 55-60% and no vegetations - 03/31-04/01 Hypotensive episodes due to sedation; no overnight events - Continue diuresis via dialysis (patient w/ azotemia) GI - advance diet as tolerated with tube feeds (only had 59 mL yesterday) - Speech Eval pending when more stable - May consider PEG tube per daughter request - Feeding tube may need to be replaced /Renal (ARF) - Nephrology consulted, appreciate recs - Dialysis per Nephrology schedule - Will need permanent access placed if family decides to continue with dialysis , will discuss with nephrology Infection (MRSA positive in blood) - atelectasis noted on CXR - MRSA on 2/2 blood cultures with neg repeat blood cultures following day - Procal decreased to 1.8 - Sensitive to Vancomycin. Pharmacy to dose. - May need Becka recs for outpatient antibiotics upon d/c Heme (Leukocytosis) - 9.9 this AM - Continue to monitor Endo (see renal) - Poorly controlled DM - Moderate SSI for now - Increased to 14u basal insulin - Goal in ICU 140-180 Lines: Right Dialysis Catheter 03/27 Code status: full, this has been discussed with family at length PPx: Famotidine, Heparin Disposition: Guarded, will continue current plan of care and coordinate specialty teams and family wishes. Addendum - Attending - Attending Attestation Date/Time: 04/02/19 0773 I personally evaluated the patient and discussed the management with Dr. Ashley Hodge PGY-2 I agree with the History, Examination, Assessment and Plan documented above with any addition or exceptions noted below. Pt has temporary dialysis catheter: Likely new onset Renal Failure. Pt having no urine output at this time. Possibly will need dialysis fdc. Nephrology on board. Follow recs. Pt was fluid overloaded and has continued to improve with daily dialysis. Rep failure improving: Pt off BIPAP. Pt on high shruthi nasal cannula. O2 sats stable. Pt uses 2L O2 NC at fpc. NG tube out. Awaiting formal speech evaluation to decide on diet modifications. Will await recs. Pt had MRSA bacteremia. Pt on IV vancomycin. Repeat blood cx were negative. Will consult ID prior to discharge to determine length of treatment for bacteremia.
[2019-04-02] MEDS: Pregabalin 50 MG CAP PO SCH ×2 (07:40→19:58)
[2019-04-02] MEDS: Aspirin Chewable 81 MG TAB PO SCH (07:40)
[2019-04-02] MEDS: Escitalopram Oxalate 10 mg Tablet PO SCH (07:41)
[2019-04-02] MEDS: rOPINIRole HCl 0.5 MG TAB PO SCH ×2 (07:41→19:58)
[2019-04-02] MEDS: Pantoprazole 40 MG VIAL IVP SCH (07:41)
[2019-04-02] MEDS: Nystatin Powder 15 GM BOT TOP SCH ×2 (07:42→19:59)
[2019-04-02] MEDS: Heparin 5,000 UNITS/ML VIAL SC SCH ×2 (07:42→19:50)
--- NOTE | 2019-04-02 07:56 | RAD ---
Chest one view HISTORY: Pneumonia. Follow-up. COMPARISON: 04/01/2019. FINDINGS: Cardiac silhouette is magnified and enlarged. Pulmonary vascular congestion with widespread patchy infiltrates and bilateral pleural fluid, right greater than left, are similar in appearance. Mediastinum is midline with aortic calcification. Feeding catheter over the esophagus no longer visible. No evidence of pneumothorax. IMPRESSION: Removal of the feeding catheter. Patchy widespread airspace disease, pleural fluid, and other findings are otherwise stable.
--- NOTE | 2019-04-02 08:20 | PRG ---
DATE OF SERVICE: 04/02/2019 SUBJECTIVE: The patient remains in the CCU on high-flow oxygen. OBJECTIVE: VITAL SIGNS: On exam, temperature is 98.7, pulse in the 50s, and blood pressure 81/47. Total intake for 24 hours 383, output 3000. HEENT: Unremarkable. NECK: No JVD. LUNGS: Coarse breath sounds. CARDIAC: S1 and S2, regular. ABDOMEN: Obese, soft. EXTREMITIES: Trace edema throughout. Her x-ray shows diffuse changes consistent with pulmonary edema. LABORATORY DATA: White blood cell count 9.9, hematocrit 28.3, and platelet count 146. Sodium 139, potassium 4, chloride 100, CO2 of 25, BUN 59, creatinine 4.9, and glucose 178. ASSESSMENT: 1. Staphylococcal sepsis. 2. Acute hypoxic respiratory failure, requiring high-flow oxygen. 3. Altered mental status. 4. Acute on chronic renal failure. PLAN: 1. Needs to continue dialysis. 2. Continue high-flow oxygen and wean FiO2 as tolerated. 3. Prognosis is extremely poor, probably need to have a family meeting, discussed realistic outcomes from this case. Job ID: [id number]
[2019-04-02 08:55] LABS: Vancomycin, Random 15.5 ug/mL (See Comment)
--- NOTE | 2019-04-02 10:00 | PRG ---
DATE OF SERVICE: 04/02/2019 SUBJECTIVE: A 79-year-old female being seen for acute kidney injury. The patient denies any nausea, vomiting, or chest pain. OBJECTIVE: See above. CONSTITUTIONAL: Awake, alert, in no acute distress. VITAL SIGNS: Afebrile. Pulse 68, breathing 16, and blood pressure 101/61. GENERAL APPEARANCE AND MENTAL STATUS: Fair. HEAD/NECK: Normocephalic. Atraumatic. EYES: EOMI. No deformity. EARS: Clear. No ulcers. NOSE: Intact. No lesions. MOUTH: Clear. No discharge. THROAT: Clear. No exudate. LUNGS: Clear. No crackles. CARDIAC: S1, S2. No rub. ABDOMEN: Benign. Bowel sounds positive. GENITALIA/RECTUM: Easley absent. BACK/EXTREMITIES: Edema 0+. NEUROLOGICAL: Alert and motor intact. SKIN: LYMPHATICS: LABORATORY DATA: Reviewed. ASSESSMENT AND PLAN: 1. Acute kidney injury with chronic kidney disease, stage 5. No indication for dialysis. 2. Acute tubular necrosis. Creatinine . 3. Hypertension, stable. 4. Anemia, stable. 5. Medication based on glomerular filtration rate, appropriate. We will plan for dialysis tomorrow. If the renal function does not improve, we will recommend strict I's and O's. Job ID: [id number]
--- NOTE | 2019-04-02 10:56 | ULT ---
BILATERAL RENAL ULTRASOUND: HISTORY: Acute renal insufficiency FINDINGS: The right kidney measures 11.6 cm in length and the left kidney measures 12.2 cm in length. No focal mass or hydronephrosis is seen on either side. No shadowing calculi are noted. Cortical echogenicity and thickness is normal. The urinary bladder is unremarkable. Incidental note is made of free fluid near the gallbladder in the right quadrant. IMPRESSION: 1. Normal renal ultrasound. 2. Free fluid near the gallbladder in the right upper quadrant should be evaluated with a right upper quadrant ultrasound.
[2019-04-02] MEDS ORDERED: Vancomycin HCl 750 MG in Sodium Chloride 0.9% 250 ML 250 ML IVPB SCH (13:00)
[2019-04-02] MEDS: Vancomycin HCl 750 MG in Sodium Chloride 0.9% 250 ML 250 ML IVPB SCH (13:01)
[2019-04-02 16:02] VITALS: BP 109/62
[2019-04-02] MEDS: Insulin Glargine 16 UNITS in Pre-Filled Syringe 1 EACH SC SCH (19:50)
[2019-04-02] MEDS: Atorvastatin Calcium 10 MG TAB PO SCH (19:57)
[2019-04-02] MEDS: Amitriptyline HCl 25 MG TAB PO PRN (20:02)
[2019-04-03] MEDS: Levothyroxine 150 MCG TAB PO SCH (05:23)
[2019-04-03 06:13] LABS: Anion Gap 18 mmol/L (10-20); BUN (Urea Nitrogen) 71 mg/dL (9.8-20.1); Calc. Creatinine Clearance 14 mL/min (70-130); Calcium 8.9 mg/dL (7.8-10.44); Carbon Dioxide 23 mmol/L (23-31); Chloride 100 mmol/L (98-107); Estimated GFR-MDRD 7; Glucose 179 mg/dL (83-110); Potassium 4.7 mmol/L (3.5-5.1); Sodium 136 mmol/L (136-145)
[2019-04-03 06:44] LABS: Eosinophils 1 % (0-10); Hemoglobin 8.7 g/dL (12.0-16.0); Hypochromia SLIGHT = 6-15 cells (100X) (0-5/hpf); Lymphocytes 5 % (21-51); MDiff Complete? YES; Mean Corpuscular HGB CONC 30.1 g/dL (32.0-36.0); Mean Corpuscular Hemoglobin 25.8 pg (27.0-31.0); Mean Corpuscular Volume 85.9 fL (78.0-98.0); Mean Platelet Volume 11.1 fL (7.4-10.4); Monocytes 6 % (0-10); Neutrophil 88 % (42-75); Nucleated RBC 1 % (0); Platelet Count 153 thou/uL (130-400); Platelet Morphology Comment Appears Adequate; RBC Distribution Width 13.8 % (11.5-14.5); Red Blood Cell (RBC) Count 3.36 mill/uL (4.20-5.40); White Blood Cell (WBC) Count 13.1 thou/uL (4.8-10.8)
--- NOTE | 2019-04-03 06:50 | PDOC.FM ---
- Subjective Subjective: Patient awake and moaning this AM. No significant overnight events. Patient not following commands. However, she did no several occasions yesterday, speak [place] and ask for things she wanted. - Objective MAR Reviewed: Yes Vital Signs & Weight: Vital Signs (12 hours) Temp Pulse Resp Pulse Ox 04/03/19 04:00 98.6 F 04/03/19 02:11 94 L 04/03/19 02:10 86 22 H 95 04/03/19 00:00 98.5 F 04/02/19 22:21 74 20 99 04/02/19 20:00 98.3 F 94 L Weight Admit Weight 116.5 kg Weight 113 kg Most Recent Monitor Data Heart Rate from ECG 90 NIBP 137/66 NIBP BP-Mean 89 Respiration from ECG 15 SpO2 87 I&O: 04/01/19 04/02/19 04/03/19 06:59 06:59 06:59 Intake Total 1819.5 388.3 725.1 Output Total 0 1 10 Balance 1819.5 387.3 715.1 Result Diagrams: 04/03/19 05:18 04/03/19 05:18 EKG Reviewed by me: Yes Radiology Reviewed by me: Yes Phys Exam - Physical Examination Moaning, but not following commands HEENT: moist MMs Decreased breath sounds Cardiovascular: RRR Gastrointestinal: soft, no distention Neurological: non-focal, moves all 4 limbs Deviation from normal: Moaning Skin: cap refill <2 seconds Dx/Plan (1) Blood bacterial culture positive Code(s): R78.81 - BACTEREMIA Status: Acute (2) Encephalopathy Code(s): G93.40 - ENCEPHALOPATHY, UNSPECIFIED Status: Acute (3) Pneumonia Code(s): J18.9 - PNEUMONIA, UNSPECIFIED ORGANISM Status: Acute (4) Sepsis Code(s): A41.9 - SEPSIS, UNSPECIFIED ORGANISM Status: Acute (5) (HFpEF) heart failure with preserved ejection fraction Code(s): I50.30 - UNSPECIFIED DIASTOLIC (CONGESTIVE) HEART FAILURE Status: Acute (6) RAFA (acute kidney injury) Code(s): N17.9 - ACUTE KIDNEY FAILURE, UNSPECIFIED Status: Acute (7) Acute exacerbation of CHF (congestive heart failure) Code(s): I50.9 - HEART FAILURE, UNSPECIFIED Status: Acute (8) Altered mental state Code(s): R41.82 - ALTERED MENTAL STATUS, UNSPECIFIED Status: Acute (9) Anemia Code(s): D64.9 - ANEMIA, UNSPECIFIED Status: Chronic (10) DM type 2, uncontrolled, with retinopathy Code(s): E11.319 - TYPE 2 DIABETES W UNSP DIABETIC RTNOP W/O MACULAR EDEMA; E11.65 - TYPE 2 DIABETES MELLITUS WITH HYPERGLYCEMIA Status: Chronic (11) Dyslipidemia Code(s): E78.5 - HYPERLIPIDEMIA, UNSPECIFIED Status: Chronic (12) HTN (hypertension) Code(s): I10 - ESSENTIAL (PRIMARY) HYPERTENSION Status: Chronic Qualifiers: (13) Hypothyroid Code(s): E03.9 - HYPOTHYROIDISM, UNSPECIFIED Status: Chronic (14) Morbid obesity Code(s): E66.01 - MORBID (SEVERE) OBESITY DUE TO EXCESS CALORIES Status: Chronic - Plan Plan: ICU day #8 [employer] (Dementia vs AMS) - Baseline non-compliance - No mention of dementia in available records - Will need further input from PCP and family members - Delirium vs encephalopathy - Mentation improved yesterday for a period of time Resp (Pulmonary Edema, CHF exacerbation) - Patient put back on BiPAP this AM. Satting in upper 80's, but appeared to be in mild distress with some retractions. - ABG pending this AM - Patient on 2L NC at home - See renal (continue diuresis with dialysis) CV (CHF exacerbation) - Pressors: Required Levophed initially, but d/c'd - Episode of bradycardia and unresponsiveness 03/26; No further episodes - ECHO reports EF 55-60% and no vegetations - 03/31-04/01 Hypotensive episodes due to sedation; no overnight events - Continue diuresis via dialysis (patient w/ azotemia); patient to receive dialysis today per Dr. Krishna. Patient did not get dialysis yesterday. 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 EKG ordered, along with troponin. - Cardiology was consulted on day of admission. Will check paper chart in case recs are present in there. GI - advance diet as tolerated with tube feeds; tube just placed again yesterday as patient had pulled it out and failed speech eval. - Continue feeds as previously ordered and as tolerated - May consider PEG tube per daughter request if that becomes necessary - Will order RUQ ultrasound as patient has bacteremia without current source, and recent renal sono shows fluid around gallbladder - Liver enzymes WNL /Renal (ARF) - Nephrology consulted, appreciate recs - Dialysis per Nephrology schedule - Will need permanent access placed if family decides to continue with dialysis , will discuss with nephrology - Renal ultrasound normal Infection (MRSA positive in blood) - atelectasis noted on CXR - MRSA on 2/2 blood cultures with neg repeat blood cultures following day - Procal decreased to 1.8 - Sensitive to Vancomycin. Pharmacy to dose. - May need Becka recs for outpatient antibiotics upon d/c - No definitive source identified Heme (Leukocytosis) - 8.4 this AM - Continue to monitor Endo (see renal) - Poorly controlled DM - Moderate SSI for now - Increased to 16u basal insulin yesterday - Goal in ICU 140-180 Lines: Right Dialysis Catheter 03/27 Code status: full, this has been discussed with family at length PPx: Famotidine, Heparin Disposition: Guarded, will continue current plan of care and coordinate specialty teams and family wishes. Patient prognosis very poor. Will attempt to contact family to have discussion regarding goals of care. Addendum - Attending - Attending Attestation Date/Time: 04/03/19 6677 I personally evaluated the patient and discussed the management with Dr. Covarrubias. I agree with the History, Examination, Assessment and Plan documented above with any addition or exceptions noted below. Back on BIPAP for dyspnea from volume overload. dialyzing now, expect this will improve pulm edema and dyspnea. Afebrile. Vitals stable. Lungs with basilar rhales. Continue diuresis. Prognosis overall is guarded as pt.'s Mental alertness to tolerate senior living dialysis questionable. Along with comorbidities longstanding, pt. has guarded prognosis at best. Attempts to contact daughter and advise have been fragmented, has not been seen at bedside so far. GBUS report still pending of suspected biliary edema.
[2019-04-03 07:07] LABS: Actual Bicarbonate (HCO3a) 24.3 mEq/L (22-28); Base Excess (BEa) -2.3 mEq/L (-2.0 to +3.0); CO2 Tension 50.7 mmHg (35.0-45.0); Calcium, Ionized 1.16 mmol/L (1.12-1.30); Carboxyhemoglobin (COHb) 1.4 gm% (0.0-3.0); Hemoglobin (Hb) 9.9 g/dL (12.0-16.0)
[2019-04-03 07:10] LABS: O2 Tension (PaO2) 54.4 mmHg (> 70.0)
[2019-04-03 07:35] LABS: CKMB 1.7 ng/mL (0-6.6)
[2019-04-03] MEDS: Pregabalin 50 MG CAP PO SCH ×2 (08:05→19:47)
[2019-04-03] MEDS: Escitalopram Oxalate 10 mg Tablet PO SCH (08:05)
[2019-04-03] MEDS: Aspirin Chewable 81 MG TAB PO SCH (08:05)
[2019-04-03] MEDS: Nystatin Powder 15 GM BOT TOP SCH ×2 (08:06→20:06)
[2019-04-03] MEDS: Pantoprazole 40 MG VIAL IVP SCH (08:06)
[2019-04-03] MEDS: Heparin 5,000 UNITS/ML VIAL SC SCH ×2 (08:07→19:47)
[2019-04-03 08:13] LABS: Vancomycin, Random 24.9 ug/mL (See Comment)
[2019-04-03] MEDS: rOPINIRole HCl 0.5 MG TAB PO SCH ×2 (08:28→19:47)
--- NOTE | 2019-04-03 09:31 | PRG ---
DATE OF SERVICE: 04/03/2019 SUBJECTIVE: The patient's respiratory status worsened overnight and she is now back on the BiPAP. She is about to start dialysis again this morning. OBJECTIVE: VITAL SIGNS: On exam, temperature 98.0, pulse 93, blood pressure 130/65, O2 saturation in the low 90s. A 24-hour intake 725, output essentially nothing. Weight 249 pounds. HEENT: Unremarkable except for tubes. NECK: No JVD. LUNGS: Coarse and diminished breath sounds. CARDIAC: S1 and S2, regular. ABDOMEN: Morbidly obese. EXTREMITIES: Edematous. LABORATORY DATA: White blood cell count 13.1, hematocrit 28.9, platelet count 153. Sodium 136, potassium 4.7, chloride 100, CO2 of 23, BUN 71, creatinine 6.0, glucose 179. pH 7.30, pCO2 of 50, pO2 of 54. ASSESSMENT: 1. Acute on chronic hypoxic respiratory failure. 2. Gross fluid overload. 3. Chronic kidney disease with failure that is not resolving. 4. Altered mental status. PLAN: 1. Dialysis today. 2. Hopefully can return to high-flow oxygen. Begin weaning again afterwards. 3. Prognosis of this patient is very poor. She has not shown any tendency toward getting better since she got here. We may need to sit down with the patient's family and discuss end of life issues. Job ID: [id number]
--- NOTE | 2019-04-03 10:00 | RAD ---
CHEST ONE VIEW: HISTORY: Dyspnea. Pneumonia. Followup. COMPARISON: 04/02/2019 FINDINGS: The cardiac silhouette remains magnified and enlarged. The pulmonary vasculature remains engorged. Patchy air space disease throughout each lung is similar in appearance to the prior study. Pleural f luid, right greater than left, is also unchanged in appearance. The mediastinum is midline with aort ic calcification. A radiopaque nasogastric type catheter is now visualized to the level of the stoma ch, exiting the inferior margin of the image. No evidence of pneumothorax. Right shoulder prosthesi s. IMPRESSION: 1. Pulmonary edema, pleural fluid, and other chest findings are stable. 2. Nasogastric tube descends the stomach. POS: [facility]
--- NOTE | 2019-04-03 11:27 | PRG ---
DATE OF SERVICE: 04/03/2019 SUBJECTIVE: A 79-year-old female being seen for end-stage renal disease. The patient denied nausea, vomiting, or chest pain. OBJECTIVE: CONSTITUTIONAL: The patient is resting in [id number] distress. VITAL SIGNS: Afebrile, pulse 82, breathing 16, and blood pressure 122/60. GENERAL APPEARANCE AND MENTAL STATUS: Fair. HEAD/NECK: Normocephalic. Atraumatic. EYES: EOMI. No deformity. EARS: Clear. No ulcers. NOSE: Intact. No lesions. MOUTH: Clear. No discharge. THROAT: Clear. No exudate. LUNGS: Clear. No crackles. CARDIAC: S1, S2. No rub. ABDOMEN: Benign. Bowel sounds positive. GENITALIA/RECTUM: Easley absent. BACK/EXTREMITIES: Edema 0+. NEUROLOGICAL: Alert and motor intact. SKIN: LYMPHATICS: LABORATORY DATA: Labs showed hemoglobin 8.7. Creatinine 6. ASSESSMENT AND PLAN: 1. Stage 6 chronic kidney disease. We will plan dialysis. 2. Pulmonary edema and respiratory failure. We will ultrafiltrate 3 L. 3. Anemia. Stable. 4. Medication based on GFR, appropriate. We will plan daily dialysis from today onward. Job ID: [id number]
[2019-04-03] MEDS: Lorazepam 2 MG/ML VIAL SLOW IVP PRN ×2 (13:55→17:30)
--- NOTE | 2019-04-03 16:30 | ULT ---
GALLBLADDER ULTRASOUND: 04/03/19 HISTORY: Right upper quadrant free fluid. COMPARISON: None. FINDINGS: The visualized IVC and aorta are unremarkable. The head and proximal pancreatic body have a normal echotexture. The remainder of the pancreas is ob scured by bowel gas. Hepatic parenchyma has a normal echotexture. No hepatic masses or intrahepatic biliary dilatation. Th e contour of the hepatic margin is maintained. Right hepatic lobe measures 17.6 cm. Right renal cortical thinning. No hydronephrosis. Right kidney measures 4.9 x 6.4 x 10.9 cm. Main portal vein is patent. Appropriate directional flow. Common bile duct diameter is 0.3 cm. There is a small amount of sludge within the gallbladder. Gallbl adder wall is slightly thickened measuring 0.35 cm. No pericholecystic fluid. Negative Sainz's sign is reported. IMPRESSION: Small amount of sludge in the neck of the gallbladder. Though the gallbladder wall is thickened, ther e is no evidence of pericholecystic fluid or a positive Sainz's sign. If there is concern, HIDA scan can be performed. POS: OFF
[2019-04-03] MEDS: Amitriptyline HCl 25 MG TAB PO PRN (19:47)
[2019-04-03] MEDS: Atorvastatin Calcium 10 MG TAB PO SCH (19:48)
[2019-04-03] MEDS: Insulin Glargine 16 UNITS in Pre-Filled Syringe 1 EACH SC SCH (19:48)
[2019-04-04] MEDS ORDERED: Amitriptyline HCl 25 MG TAB PO SCH (04:15)
[2019-04-04] MEDS: Levothyroxine 150 MCG TAB PO SCH (04:31)
[2019-04-04 05:34] LABS: #Eosinphils 0.1 thou/uL (0.0-0.7); #Lymphocytes 1.6 thou/uL (1.20-3.40); #Monocytes 0.9 thou/uL (0.11-0.59); #Neutrophils 10.3 thou/uL (1.40-6.50); %Basophils 0.1 % (0.0-1.0); %Eosinophils 0.6 % (0.0-10.0); %Monocytes 6.9 % (0.0-10.0); %Neutrophils 80.3 % (42.0-75.0); Hemoglobin 8.8 g/dL (12.0-16.0); Mean Corpuscular HGB CONC 31.1 g/dL (32.0-36.0); Mean Corpuscular Hemoglobin 26.9 pg (27.0-31.0); Mean Corpuscular Volume 86.5 fL (78.0-98.0); Mean Platelet Volume 10.5 fL (7.4-10.4); Platelet Count 154 thou/uL (130-400); RBC Distribution Width 14.1 % (11.5-14.5); Red Blood Cell (RBC) Count 3.25 mill/uL (4.20-5.40); White Blood Cell (WBC) Count 12.9 thou/uL (4.8-10.8)
[2019-04-04 05:46] LABS: Anion Gap 16 mmol/L (10-20); BUN (Urea Nitrogen) 46 mg/dL (9.8-20.1); Calc. Creatinine Clearance 18 mL/min (70-130); Calcium 9.1 mg/dL (7.8-10.44); Carbon Dioxide 27 mmol/L (23-31); Chloride 98 mmol/L (98-107); Estimated GFR-MDRD 9; Glucose 199 mg/dL (83-110); Potassium 4.4 mmol/L (3.5-5.1); Sodium 137 mmol/L (136-145)
--- NOTE | 2019-04-04 06:51 | PDOC.FM ---
- Subjective Subjective: Patient agitated overnight. Per night team, given additional dose of amitryptiline. She was placed back on BiPAP. Dr. Davila had discussion with patient's daughter this AM. She has agreed to make her DNR, but she is going to talk to the rest of the family in [facility] regarding course of action ( continued dialysis, continued respiratory support, palliative care, etc.). We will continue current treatment plan for now. - Objective MAR Reviewed: Yes Vital Signs & Weight: Vital Signs (12 hours) Temp Pulse Resp Pulse Ox 04/04/19 04:00 97.6 F 04/04/19 02:44 90 04/04/19 02:34 84 15 93 L 04/04/19 02:00 93 L 04/04/19 00:00 98.2 F 04/03/19 22:10 86 18 100 04/03/19 20:00 98.4 F 95 Weight Admit Weight 116.5 kg Weight 110.4 kg Most Recent Monitor Data Heart Rate from ECG 88 NIBP 86/67 NIBP BP-Mean 73 Respiration from ECG 21 SpO2 92 I&O: 04/02/19 04/03/19 04/04/19 06:59 06:59 06:59 Intake Total 388.3 725.1 842 Output Total 1 10 10 Balance 387.3 715.1 832 Result Diagrams: 04/04/19 04:43 04/04/19 03:30 EKG Reviewed by me: Yes Radiology Reviewed by me: Yes Phys Exam - Physical Examination Agitated and on BiPaP Coarse breath sounds, crackles at bases Systolic murmur Gastrointestinal: soft Mild distention 1+ edema Deviation from normal: Oriented to person Skin: cap refill <2 seconds Dx/Plan (1) Acute respiratory failure with hypoxia Code(s): J96.01 - ACUTE RESPIRATORY FAILURE WITH HYPOXIA Status: Acute (2) Pulmonary edema Code(s): J81.1 - CHRONIC PULMONARY EDEMA Status: Acute (3) Blood bacterial culture positive Code(s): R78.81 - BACTEREMIA Status: Acute (4) Sepsis Code(s): A41.9 - SEPSIS, UNSPECIFIED ORGANISM Status: Resolved (5) RAFA (acute kidney injury) Code(s): N17.9 - ACUTE KIDNEY FAILURE, UNSPECIFIED Status: Acute (6) (HFpEF) heart failure with preserved ejection fraction Code(s): I50.30 - UNSPECIFIED DIASTOLIC (CONGESTIVE) HEART FAILURE Status: Chronic (7) Acute exacerbation of CHF (congestive heart failure) Code(s): I50.9 - HEART FAILURE, UNSPECIFIED Status: Acute (8) Altered mental state Code(s): R41.82 - ALTERED MENTAL STATUS, UNSPECIFIED Status: Acute (9) Anemia Code(s): D64.9 - ANEMIA, UNSPECIFIED Status: Chronic (10) DM type 2, uncontrolled, with retinopathy Code(s): E11.319 - TYPE 2 DIABETES W UNSP DIABETIC RTNOP W/O MACULAR EDEMA; E11.65 - TYPE 2 DIABETES MELLITUS WITH HYPERGLYCEMIA Status: Chronic (11) Dyslipidemia Code(s): E78.5 - HYPERLIPIDEMIA, UNSPECIFIED Status: Chronic (12) HTN (hypertension) Code(s): I10 - ESSENTIAL (PRIMARY) HYPERTENSION Status: Chronic Qualifiers: (13) Hypothyroid Code(s): E03.9 - HYPOTHYROIDISM, UNSPECIFIED Status: Chronic (14) Morbid obesity Code(s): E66.01 - MORBID (SEVERE) OBESITY DUE TO EXCESS CALORIES Status: Chronic (15) CKD (chronic kidney disease) stage 5, GFR less than 15 ml/min Code(s): N18.5 - CHRONIC KIDNEY DISEASE, STAGE 5 Status: Acute - Plan Plan: ICU day #9 [employer] (Dementia vs AMS) - Baseline non-compliance - No mention of dementia in available records; attempted to contact patient's daughter yesterday, but unsuccessful - Patient answering some questions appropriately; appears to be improvement in mental status Resp (Pulmonary Edema, CHF exacerbation, Acute hypoxic respiratory failure) - Patient on BiPAP this AM - Patient on 2L [facility] at [facility] - See renal (continue diuresis with dialysis) CV (CHF exacerbation, Pulmonary edema) - Pressors: Required Levophed initially, but d/c'd - Episode of bradycardia and unresponsiveness 03/26; No further episodes - ECHO reports EF 55-60% and no vegetations - 03/31-04/01 Hypotensive episodes due to sedation; no overnight events - Continue diuresis via dialysis (patient w/ azotemia); patient to receive dialysis daily. Will likely need permanent access. Will discuss with daughter if able to get ahold of her. - threat monitoring analyst with ST elevations in V lead and ST depressions in Inferior lead yesterday. EKG appeared relatively unchanged from prior EKG, Troponin stable in indeterminate range GI - advance diet as tolerated with tube feeds; Attempt speech eval when more stable - Continue feeds as previously ordered and as tolerated - May consider PEG tube per daughter request if that becomes necessary - RUQ sono with sludge in neck of gallbladder and thickened gallbladder wall with no pericholecystic fluid or positive holbrook sign; Consider HIDA if high suspicion - Liver enzymes WNL /Renal (ARF) - Nephrology consulted, appreciate recs - Dialysis per Nephrology schedule; daily (3L per session); still appears significantly fluid overloaded despite dialysis - Will need permanent access placed if family decides to continue with dialysis , will discuss with nephrology and family if they desire to be aggressive with care. - Renal ultrasound normal Infection (MRSA positive in blood) - atelectasis noted on CXR - MRSA on 2/2 blood cultures with neg repeat blood cultures following day - Procal decreased to 1.8 - Sensitive to Vancomycin. Pharmacy to dose. - May need Becka recs for outpatient antibiotics upon d/c - No definitive source identified Heme (Leukocytosis) - 12.9 this AM, no left shift - Continue to monitor Endo (see renal) - Poorly controlled DM - Moderate SSI for now - Increased to 16u basal insulin yesterday; consider increase again today for optimal control - Goal in ICU 140-180 Lines: Right Dialysis Catheter 03/27 Code status: DNR, this has been discussed with family at length by Dr. Davila PPx: Famotidine, Heparin Disposition: Guarded, will continue current plan of care and coordinate specialty teams and family wishes. Patient prognosis very poor. Patient made DNR this AM by daughter. She would like for us to continue current treatment until she has discussion with the rest of the family about possible plan for Hospice. Addendum - Attending - Attending Attestation Date/Time: 04/04/19 0979 I personally evaluated the patient and discussed the management with Dr. Ashley Hodge. I agree with the History, Examination, Assessment and Plan documented above with any addition or exceptions noted below. Continue current treatment plan to include daily dialysis/BIPAP and hi-shruthi nasal cannula to help with fluid overload. Goals of care have been discussed with daughter. Pt decision to be DNR at this time. Pt agitated at this time. Has been getting ativan. Consider haldol for restlessness.
--- NOTE | 2019-04-04 08:29 | RAD ---
CHEST ONE VIEW: HISTORY: Dyspnea. Pneumonia. Followup. COMPARISON: 04/03/2019 FINDINGS: The cardiac silhouette remains magnified and enlarged. The patient is now rotated leftward. The pul monary vasculature remains engorged with widespread airspace opacity throughout each lung and bilater al pleural fluid again demonstrated. Calcification within the aorta. Nasogastric tube descends to t he abdomen, exiting the inferior margin of the image. No gross pneumothorax. IMPRESSION: Pulmonary edema, pleural fluid, and other findings are stable. POS: C
[2019-04-04] MEDS: Heparin 5,000 UNITS/ML VIAL SC SCH (08:46)
[2019-04-04] MEDS: Lorazepam 2 MG/ML VIAL SLOW IVP PRN (08:46)
[2019-04-04] MEDS: HumaLOG 300 UNITS/3 ML VIAL SC PRN ×2 (08:46→11:50)
[2019-04-04] MEDS: Pregabalin 50 MG CAP PO SCH (08:47)
[2019-04-04] MEDS: Escitalopram Oxalate 10 mg Tablet PO SCH (08:49)
[2019-04-04] MEDS: Aspirin Chewable 81 MG TAB PO SCH (08:49)
[2019-04-04] MEDS: Nystatin Powder 15 GM BOT TOP SCH (08:49)
[2019-04-04] MEDS: rOPINIRole HCl 0.5 MG TAB PO SCH (08:49)
[2019-04-04] MEDS: Pantoprazole 40 MG VIAL IVP SCH (08:50)
--- NOTE | 2019-04-04 09:19 | PRG ---
DATE OF SERVICE: 04/04/2019 SUBJECTIVE: This patient continues to do poorly. She is requiring continuous BiPAP at FiO2 of 60%. She did undergo dialysis yesterday with 3 L of fluid removed. OBJECTIVE: VITAL SIGNS: Temperature 98.4, pulse 89, blood pressure 115/53, O2 saturation in the low 90s. She is currently on 60% oxygen through BiPAP. HEENT: Remarkable for the CPAP mask. NECK: No adenopathy or JVD. LUNGS: Coarse breath sounds. CARDIAC: S1, S2. Regular. ABDOMEN: Obese, soft. EXTREMITIES: Edematous. LABORATORY DATA: Sodium 137, potassium 4.4, chloride 98, CO2 of 27, BUN 46, creatinine 4.5, and glucose 199. White blood cell count 12.9, hematocrit 28.1, and platelet count 154. Her x-ray continues to show bilateral infiltrative changes consistent with pulmonary edema. ASSESSMENT: 1. Acute on chronic renal failure. 2. Acute on chronic respiratory failure. 3. No improvement despite aggressive intervention including BiPAP and dialysis. PLAN: I was able to get hold of the patient's daughter today and discussed the care over the phone. This patient has been refusing medical care in a senior living for quite some time. She is incapable of making decisions for herself. Therefore, the decision her daughter. I did convince the daughter DNR order. I really think we should convert to Hospice care, as I do not see any reasonable hope for recovery. I do not think that the patient would want chronic hemodialysis or endotracheal intubation based on her previous behavior while she was in a senior living. The daughter will discuss with the rest of the family and get back with me. Job ID: [id number]
--- NOTE | 2019-04-04 10:30 | PRG ---
DATE OF SERVICE: 04/04/2019 SUBJECTIVE: This is a 79-year-old female, being seen for end-stage kidney disease. The patient remains on BiPAP. OBJECTIVE: CONSTITUTIONAL: The patient is resting [id number] distress. VITAL SIGNS: Afebrile, pulse 89, breathing 16, and blood pressure 115/53. GENERAL APPEARANCE AND MENTAL STATUS: Fair. HEAD/NECK: Normocephalic. Atraumatic. EYES: EOMI. No deformity. EARS: Clear. No ulcers. NOSE: Intact. No lesions. MOUTH: Clear. No discharge. THROAT: Clear. No exudate. LUNGS: Clear. No crackles. CARDIAC: S1, S2. No rub. ABDOMEN: Benign. Bowel sounds positive. GENITALIA/RECTUM: Easley absent. BACK/EXTREMITIES: Edema 0+. NEUROLOGICAL: The patient is resting. SKIN: LYMPHATICS: LABORATORY DATA: Reviewed. ASSESSMENT: Chronic kidney disease, stage 6. Prognosis is poor. Family wants RRY so I marisabel plan HD today I will dialyze the patient. 2. Anemia 3. ATN multifactorial. Job ID: [id number] [facility]
[2019-04-04 12:19] VITALS: BMI 47.5
[2019-04-04] MEDS ORDERED: Heparin 10,000 UNITS/1 ML VIAL ONE (15:00)
[2019-04-04 18:45] LABS: Vancomycin, Trough 13.7 ug/mL
[2019-04-04] MEDS ORDERED: Insulin Glargine 18 UNITS in Pre-Filled Syringe 1 EACH SC SCH (21:00)
[2019-04-05] MEDS ORDERED: Levothyroxine 150 MCG TAB ONE (05:40)
[2019-04-05] MEDS: Atorvastatin Calcium 10 MG TAB PO SCH (08:38)
[2019-04-05] MEDS: Heparin 5,000 UNITS/ML VIAL SC SCH ×2 (08:39→09:49)
[2019-04-05] MEDS: Pregabalin 50 MG CAP PO SCH ×2 (08:40→09:49)
[2019-04-05] MEDS: Nystatin Powder 15 GM BOT TOP SCH ×2 (08:40→09:50)
[2019-04-05] MEDS: rOPINIRole HCl 0.5 MG TAB PO SCH ×2 (08:50→10:02)
[2019-04-05] MEDS: Levothyroxine 150 MCG TAB PO SCH (08:52)
--- NOTE | 2019-04-05 09:30 | PDOC.FM ---
- Objective Vital Signs & Weight: Weight Admit Weight 116.5 kg Weight 110.4 kg Most Recent Monitor Data Heart Rate from ECG 82 NIBP 120/62 NIBP BP-Mean 81 Respiration from ECG 16 SpO2 97 I&O: 04/04/19 04/05/19 04/06/19 06:59 06:59 06:59 Intake Total 842 372 Output Total 10 0 Balance 832 372 Result Diagrams: 04/04/19 04:43 04/04/19 03:30 Dx/Plan (1) Acute respiratory failure with hypoxia Code(s): J96.01 - ACUTE RESPIRATORY FAILURE WITH HYPOXIA Status: Acute (2) COPD exacerbation Code(s): J44.1 - CHRONIC OBSTRUCTIVE PULMONARY DISEASE W (ACUTE) EXACERBATION Status: Acute (3) Encephalopathy Code(s): G93.40 - ENCEPHALOPATHY, UNSPECIFIED Status: Acute (4) Pulmonary edema Code(s): J81.1 - CHRONIC PULMONARY EDEMA Status: Acute (5) Sepsis Code(s): A41.9 - SEPSIS, UNSPECIFIED ORGANISM Status: Resolved - Plan Plan: ICU day #9 [employer] (Dementia vs AMS) - Baseline non-compliance - No mention of dementia in available records; Dr. Davila talked with Daughter yesterday. States patient was refusing medical care at the retirement. - Patient answering some questions appropriately; appears to be improvement in mental status Resp (Pulmonary Edema, CHF exacerbation, Acute hypoxic respiratory failure) - Patient on BiPAP this AM - [facility] - See renal (continue diuresis with dialysis) CV (CHF exacerbation, Pulmonary edema) - Pressors: Required Levophed initially, but d/c'd - Episode of bradycardia and unresponsiveness 03/26; No further episodes - ECHO reports EF 55-60% and no vegetations - 03/31-04/01 Hypotensive episodes due to sedation; no overnight events - Continue diuresis via dialysis (patient w/ azotemia); patient to receive dialysis daily. Will likely need permanent access. Dr Krishna has stated he will dialyze if needed but has signed off at this time GI - advance diet as tolerated with tube feeds; Attempt speech eval when more stable - Continue feeds as previously ordered and as tolerated - May consider PEG tube per daughter request if that becomes necessary - RUQ sono with sludge in neck of gallbladder and thickened gallbladder wall with no pericholecystic fluid or positive holbrook sign; Consider HIDA if high suspicion - Liver enzymes WNL /Renal (ARF) - Nephrology consulted, appreciate recs - Dialysis per Nephrology schedule; daily (3L per session); still appears significantly fluid overloaded despite dialysis - Will need permanent access placed if family decides to continue with dialysis , will discuss with nephrology and family if they desire to be aggressive with care. - Renal ultrasound normal Infection (MRSA positive in blood) - atelectasis noted on CXR - MRSA on 2/2 blood cultures with neg repeat blood cultures following day - Procal decreased to 1.8 - Sensitive to Vancomycin. Pharmacy to dose. - May need Becka recs for outpatient antibiotics upon d/c - No definitive source identified Heme (Leukocytosis) - CBC pending today - Continue to monitor Endo (see renal) - Poorly controlled DM - Moderate SSI for now - Increased to 16u basal insulin yesterday; consider increase again today for optimal control - Goal in ICU 140-180 Lines: Right Dialysis Catheter 03/27 Code status: DNR, this has been discussed with family at length by Dr. Davila PPx: Famotidine, Heparin Disposition: Guarded, will continue current plan of care and coordinate specialty teams and family wishes. Patient prognosis very poor. Patient made DNR yesterday by Daughter. She would like for us to continue current treatment until she has discussion with the rest of the family about possible plan for Hospice. Addendum - Attending - Attending Attestation Date/Time: 04/05/19 1010 I personally evaluated the patient and discussed the management with Dr. Vicente Jeffrey I agree with the History, Examination, Assessment and Plan documented above with any addition or exceptions noted below. Pt is still on BIPAP at this time. Will continue to follow recs of Pulm/Crit. Pt recieved dialysis yesterday. Nephrology-Dr. Krishna has signed off. Stated will dialyze as needed. Pt was made DNR. There was possible discussion between Dr. Davis and family about patient going on Hospice. Daughter stated she will talk with family and let us know. Will try and get ahold of daughter and disuss tx goals.
[2019-04-05] MEDS: Aspirin Chewable 81 MG TAB PO SCH (09:49)
[2019-04-05] MEDS: Escitalopram Oxalate 10 mg Tablet PO SCH (09:49)
[2019-04-05] MEDS: Pantoprazole 40 MG VIAL IVP SCH (09:50)
--- NOTE | 2019-04-05 09:53 | RAD ---
CHEST ONE VIEW: HISTORY: Follow up pneumonia. COMPARISON: 04/04/2019 FINDINGS: NG tube is in place. Cardiomegaly with bilateral vascular congestion and alveolar pulmonary and pare nchymal changes bilaterally and pleural effusion changes. Appearance is stable. IMPRESSION: 1. Stable cardiomegaly. 2. Congestion. 3. Edema. 4. Pleural effusions. Continue short-term followup. POS: [facility]
[2019-04-05 10:08] LABS: Hemoglobin 9.4 g/dL (12.0-16.0); Mean Corpuscular HGB CONC 30.7 g/dL (32.0-36.0); Mean Corpuscular Hemoglobin 26.3 pg (27.0-31.0); Mean Corpuscular Volume 85.9 fL (78.0-98.0); Red Blood Cell (RBC) Count 3.55 mill/uL (4.20-5.40); White Blood Cell (WBC) Count 18.3 thou/uL (4.8-10.8)
[2019-04-05 10:09] LABS: #Basophils 0.1 thou/uL (0.0-0.2); #Eosinphils 0.1 thou/uL (0.0-0.7); #Lymphocytes 0.9 thou/uL (1.20-3.40); #Monocytes 1.2 thou/uL (0.11-0.59); %Basophils 0.6 % (0.0-1.0); %Eosinophils 0.4 % (0.0-10.0); %Monocytes 6.7 % (0.0-10.0); %Neutrophils 87.3 % (42.0-75.0); Mean Platelet Volume 10.7 fL (7.4-10.4); Platelet Count 165 thou/uL (130-400); RBC Distribution Width 14.3 % (11.5-14.5)
--- NOTE | 2019-04-05 10:37 | PRG ---
DATE OF SERVICE: 04/05/2019 SUBJECTIVE: A 79-year-old female being seen for acute kidney injury. The patient denies nausea, vomiting, or chest pain. OBJECTIVE: CONSTITUTIONAL: The patient is awake and alert. VITAL SIGNS: Afebrile, pulse 82, breathing 16, and blood pressure 130/62. GENERAL APPEARANCE AND MENTAL STATUS: Fair. HEAD/NECK: Normocephalic. Atraumatic. EYES: EOMI. No deformity. EARS: Clear. No ulcers. NOSE: Intact. No lesions. MOUTH: Clear. No discharge. THROAT: Clear. No exudate. LUNGS: Clear. No crackles. CARDIAC: S1, S2. No rub. ABDOMEN: Benign. Bowel sounds positive. GENITALIA/RECTUM: Easley absent. BACK/EXTREMITIES: Edema 0+. NEUROLOGICAL: Alert and motor intact. SKIN: LYMPHATICS: ASSESSMENT AND PLAN: 1. Chronic kidney disease, stage 6. Plan dialysis for ultrafiltration. 2. Hypertension, stable. 3. Anemia, stable. 4. Acute tubular necrosis, stable. 5. Medication based on GFR appropriate. Job ID: [id number]
[2019-04-05] MEDS ORDERED: Heparin 10,000 UNITS/ 10 ML VIAL ONE (11:00)
[2019-04-05] MEDS: HumaLOG 300 UNITS/3 ML VIAL SC PRN (11:09)
[2019-04-05 12:51] VITALS: TEMP 98.9
[2019-04-05 13:29] LABS: Anion Gap 17 mmol/L (10-20); BUN (Urea Nitrogen) 33 mg/dL (9.8-20.1); Calc. Creatinine Clearance 22 mL/min (70-130); Calcium 9.1 mg/dL (7.8-10.44); Carbon Dioxide 24 mmol/L (23-31); Chloride 101 mmol/L (98-107); Estimated GFR-MDRD 12; Glucose 188 mg/dL (83-110); Potassium 4.7 mmol/L (3.5-5.1); Sodium 137 mmol/L (136-145)
[2019-04-05 13:54] LABS: Vancomycin, Random 20.5 ug/mL (See Comment)
[2019-04-05] MEDS: Lorazepam 2 MG/ML VIAL SLOW IVP PRN (15:35)
[2019-04-05 17:14] LABS: Anion Gap 17 mmol/L (10-20); BUN (Urea Nitrogen) 28 mg/dL (9.8-20.1); Calc. Creatinine Clearance 26 mL/min (70-130); Carbon Dioxide 26 mmol/L (23-31); Chloride 98 mmol/L (98-107); Estimated GFR-MDRD 14; Glucose 170 mg/dL (83-110); Potassium 4.6 mmol/L (3.5-5.1); Sodium 136 mmol/L (136-145)
== END 2019-04-05 18:16 | disposition hospice, inpatient (51) | DRG 871 ==
LOC: ERS 01:22 → CCU 04:05 → T4-A 04-05 18:11
PROVIDERS: ADMIT Family Medicine; ATTEND Family Medicine
PROC: 5A09457 Assistance with Respiratory Ventilation, 24-96 Consecutive Hours, Continuous Positive Airway Pressure (ICD-10-PCS; 2019-03-27)
PROC: 06HM33Z Insertion of Infusion Device into Right Femoral Vein, Percutaneous Approach (ICD-10-PCS; 2019-03-27)
PROC: 5A1D70Z Performance of Urinary Filtration, Intermittent, Less than 6 Hours Per Day (ICD-10-PCS; principal; 2019-03-28)
DX: A41.02 Sepsis due to Methicillin resistant Staphylococcus aureus (principal); J96.01 Acute respiratory failure with hypoxia; I50.33 Acute on chronic diastolic (congestive) heart failure; N18.6 End stage renal disease; Z51.5 Encounter for palliative care; Z66 Do not resuscitate; J15.29 Pneumonia due to other staphylococcus; N17.0 Acute kidney failure with tubular necrosis; J44.1 Chronic obstructive pulmonary disease with (acute) exacerbation; G93.40 Encephalopathy, unspecified; N17.9 Acute kidney failure, unspecified; E87.1 Hypo-osmolality and hyponatremia; I13.0 Hypertensive heart and chronic kidney disease with heart failure and stage 1 through stage 4 chronic kidney disease, or unspecified chronic kidney disease; E87.70 Fluid overload, unspecified; G25.81 Restless legs syndrome; E11.40 Type 2 diabetes mellitus with diabetic neuropathy, unspecified; E03.9 Hypothyroidism, unspecified; E66.9 Obesity, unspecified; G47.00 Insomnia, unspecified; I25.10 Atherosclerotic heart disease of native coronary artery without angina pectoris; K21.9 Gastro-esophageal reflux disease without esophagitis; N18.3 Chronic kidney disease, stage 3 (moderate); E78.5 Hyperlipidemia, unspecified; R65.20 Severe sepsis without septic shock; E87.5 Hyperkalemia; D63.1 Anemia in chronic kidney disease; E11.22 Type 2 diabetes mellitus with diabetic chronic kidney disease; F03.90 Unspecified dementia, unspecified severity, without behavioral disturbance, psychotic disturbance, mood disturbance, and anxiety; Z98.890 Other specified postprocedural states; Z91.14 Patient's other noncompliance with medication regimen; Z79.2 Long term (current) use of antibiotics; Z79.82 Long term (current) use of aspirin; Z79.899 Other long term (current) drug therapy
CPT/HCPCS: 36415; 36416; 51702; 71045; 71250; 74018; 76705; 76770; 80048; 80053; 80202; 81003; 82553; 82805; 83605; 83880; 84145; 84439; 84443; 84484; 85025; 86704; 86706; 86803; 86850; 86900; 86901; 87040; 87077; 87086; 87149; 87186; 87340; 90935; 93005; 93010; 93306; 94640; 94660; 94760; 96365; 96367; 96375; C1752; C9113; G0257; J0131; J0456; J0461; J0692; J1644; J1650; J1825; J1940; J2060; J2930; J3370; J3475; J3490; J7050; J7070; J7620; P9047; S0028

== ENCOUNTER 2019-04-05 18:16 | Inpatient (IN) | payer OTHER ==
[2019-04-05] MEDS ORDERED: Lorazepam 1 MG TAB PO PRN (19:39)
[2019-04-05] MEDS ORDERED: Morphine 10 MG/0.5 ML ORAL SYRINGE PO PRN (19:45)
[2019-04-05] MEDS ORDERED: Acetaminophen 325 MG Suppository PR PRN (19:47)
[2019-04-05] MEDS ORDERED: Bisacodyl 10 MG SUPP PR PRN (19:47)
[2019-04-05] MEDS ORDERED: Haloperidol Lactate 2 MG/ML UDCUP PO PRN (19:49)
[2019-04-05] MEDS ORDERED: Hyoscyamine Sulfate SL 0.125 mg Tablet SL PRN (19:51)
[2019-04-05] MEDS ORDERED: Hyoscyamine Sulfate 0.125 MG/5 ML UDCUP PO PRN (19:52)
[2019-04-05] MEDS ORDERED: Prochlorperazine Maleate 5 MG TAB PO PRN (19:57)
[2019-04-05] MEDS: Morphine 10 MG/0.5 ML ORAL SYRINGE PO SCH ×2 (20:39→22:32)
[2019-04-06] MEDS: Morphine 10 MG/0.5 ML ORAL SYRINGE PO SCH ×7 (00:23→11:49)
--- NOTE | 2019-04-06 08:36 | PDOC.FM ---
- Subjective Subjective: Pt on hospice care at this time. Pt vital signs stable. Pt unresponsive. Pt has some agonal breath sounds. Daughter denies any acute events overnight. - Objective MAR Reviewed: Yes Vital Signs & Weight: Vital Signs (12 hours) Temp Pulse Resp BP Pulse Ox 04/06/19 07:42 99.5 F 86 16 93/54 L 95 I&O: 04/05/19 04/06/19 04/07/19 06:59 06:59 06:59 Intake Total 50 Balance 50 Radiology Reviewed by me: Yes (No new imaging to review) Phys Exam - Physical Examination Pt unresponsive. Neck: no nodes, supple Diffuse crackles, agonal breath sounds noted Cardiovascular: RRR, no significant murmur, no rub Gastrointestinal: soft Moderately distended Musculoskeletal: pulses present +1 edema in LE Uresponsive at this time. Deviation from normal: Unable to assess Skin: no rash Dx/Plan (1) End stage renal disease Code(s): N18.6 - END STAGE RENAL DISEASE Status: Acute (2) Acute exacerbation of CHF (congestive heart failure) Code(s): I50.9 - HEART FAILURE, UNSPECIFIED Status: Acute (3) Acute respiratory failure with hypoxia Code(s): J96.01 - ACUTE RESPIRATORY FAILURE WITH HYPOXIA Status: Acute (4) Altered mental state Code(s): R41.82 - ALTERED MENTAL STATUS, UNSPECIFIED Status: Acute (5) DM2 (diabetes mellitus, type 2) Status: Chronic Qualifiers: Diabetes mellitus complication status: with hyperglycemia (6) HTN (hypertension) Code(s): I10 - ESSENTIAL (PRIMARY) HYPERTENSION Status: Chronic Qualifiers: - Plan Plan: Pt on inpatient hospice care. Pt had ESRD with fluid overload and CHF exacerbation leading to Acute hypoxic Resp Failure. Over the last week pt could not be weaned of bipap despite daily dialysis. Pt was confused and altered. Continue hospice managment. Continue morphine for agonal breathing. All lab checks have been d/c. Will continue with comfort measures. Pt did not appear in any distress. Addendum - Attending - Attending Attestation Date/Time: 04/06/19 0338 I personally evaluated the patient and discussed the management with Dr. Jeffrey. I agree with the History, Examination, Assessment and Plan documented above with any addition or exceptions noted below. Pt. 79 y.o. LAF known to me from inpatient admit with ESRD, CHF failed to respond to aggressive therapy, now on inpatient hospice care. Pt. appears agonal. unresponsive, cool extremities, anuric--signs of impending demise.
[2019-04-06] MEDS: Morphine 10 MG/0.5 ML ORAL SYRINGE SL PRN ×3 (13:52→22:03)
[2019-04-06] MEDS ORDERED: Scopolamine 1.5 mg/72 hour Patch TOP PRN (16:23)
[2019-04-06 19:56] VITALS: BP 103/51; TEMP 98.9
== END 2019-04-06 22:53 | disposition expired | DRG 951 ==
LOC: T4-A 18:16
PROVIDERS: ADMIT Internal Medicine Nephrology; ATTEND Internal Medicine Nephrology
DX: Z51.5 Encounter for palliative care (principal); J96.01 Acute respiratory failure with hypoxia; N18.6 End stage renal disease; I50.33 Acute on chronic diastolic (congestive) heart failure; A41.9 Sepsis, unspecified organism; J18.9 Pneumonia, unspecified organism; I13.2 Hypertensive heart and chronic kidney disease with heart failure and with stage 5 chronic kidney disease, or end stage renal disease; J44.1 Chronic obstructive pulmonary disease with (acute) exacerbation; N17.9 Acute kidney failure, unspecified; E11.22 Type 2 diabetes mellitus with diabetic chronic kidney disease; F03.90 Unspecified dementia, unspecified severity, without behavioral disturbance, psychotic disturbance, mood disturbance, and anxiety; D63.1 Anemia in chronic kidney disease; E66.9 Obesity, unspecified; E78.5 Hyperlipidemia, unspecified; E03.9 Hypothyroidism, unspecified; E11.65 Type 2 diabetes mellitus with hyperglycemia; Z79.899 Other long term (current) drug therapy; Z79.82 Long term (current) use of aspirin; Z99.2 Dependence on renal dialysis
CPT/HCPCS: Q0164